=== PATIENT | female | born 1945 | race Caucasian/White ===

== ENCOUNTER 2017-02-21 11:30 | Inpatient (IN) ==
[2017-02-21] MEDS ORDERED: NS 1,000 ML IV ONE (11:59)
[2017-02-21] MEDS ORDERED: HUMULIN R IV ONE (11:59)
[2017-02-21 12:22] LABS: MANUAL DIFF NEEDED? NO
[2017-02-21] MEDS ORDERED: TORADOL IM ONE (12:32)
[2017-02-21] MEDS ORDERED: ZOFRAN IV ONE ×2 (12:32→12:41)
[2017-02-21] MEDS ORDERED: TORADOL ONE (12:35)
[2017-02-21] MEDS ORDERED: TORADOL IV ONE (12:41)
[2017-02-21 12:46] LABS: BASO% 0.2 % (0.0-0.8); EOS# 0.01 X1000 (0.0-0.7); EOS% 0.1 % (0.0-10.0); HEMATOCRIT 30.5 % (37.0-47.0); HEMOGLOBIN 10.3 g/dL (12.0-16.0); IMM GRAN# 0.16 X1000 (0.0-0.04); IMM GRAN% 0.9 % (0.0-0.5); LYMPH# 0.59 X1000 (1.2-3.4); LYMPH% 3.4 % (20.5-51.1); MCH 30.7 PG (27-31); MCHC 33.8 g/dL (33-37); MONO# 1.04 X1000 (0.11-0.59); MONO% 5.9 % (1.7-9.3); MPV 9.4 FL (7.4-10.4); NEUT% 89.5 % (42.2-75.2); PLT 274 X1000 (130-400); RBC 3.35 XMIL (4.2-5.4)
[2017-02-21 13:35] LABS: ALBUMIN 3.2 g/dL (3.5-5.0); CALCIUM 10.3 mg/dL (8.8-10.2); POTASSIUM 4.8 mmol/L (3.5-5.1); TOTAL BILIRUBIN 0.44 mg/dL (0.20-1.00); TOTAL PROTEIN 7.4 g/dL (6.3-8.3)
[2017-02-21] MEDS: HUMULIN R 100 UNIT in NS 99 ML IV ONE ×3 (13:52→17:00)
[2017-02-21 14:10] LABS: ALLEN TEST YES; BLOOD TYPE ARTERIAL; DRAW SITE R RADIAL; METHB 1.4 % (0.0-1.5); O2(CT) 12.4 mL/dL (15.0-23.0); PCO2(98.6) 25 mmHg (35-45); PO2(98.6) 79 mmHg (60-100); SAMPLE BLOOD; SAO2 97.1 % (95.0-100.0); THB 9.3 g/dL (11.5-17.4); pH(98.6) 7.36 (7.35-7.45)
[2017-02-21 14:11] LABS: MODALITY CANNULA
--- NOTE | 2017-02-21 14:13 | PROVIDER DOCUMENTATION ---
This chart was entered by Rian Sullivan Scribe, acting as scribe for Kingston Beyer MD. HPI-Abdominal Pain/GI Problem - General Chief Complaint: Nausea/Vomiting Stated Complaint: left flank pain/nausea Time Seen by Provider: 02/21/17 11:58 Source: patient Allergies/Adverse Reactions: Patient Allergies Allergy/AdvReac Type Severity Reaction Status Date / Time Penicillins Allergy Intermediate HIVES Verified 02/21/17 12:23 shellfish derived Allergy SWELLING Verified 02/21/17 12:23 Home Medications: Home Medication List Medication Instructions Recorded Confirmed Last Taken Type ATORVAstatin [Lipitor] 40 mg PO HS 03/23/13 02/21/17 05/31/16 History Furosemide [Lasix] 20 mg PO BID 03/23/13 02/21/17 06/01/16 History Omeprazole [Prilosec] 40 mg PO QAM 03/23/13 02/21/17 06/01/16 History Allopurinol 200 mg PO DAILY 01/01/16 02/21/17 06/01/16 History Fenofibrate 160 mg PO DAILY 01/01/16 02/21/17 06/01/16 History Insulin Aspart [Novolog Flexpen] 0 unit SQ DIRECTED 01/01/16 02/21/17 History Levothyroxine Sodium [Synthroid] 150 microgm PO DAILY 01/01/16 02/21/17 History Niacin [Niaspan] 1,000 mg PO QHS 01/01/16 02/21/17 05/31/16 History Metoprolol Succinate [Toprol Xl] 50 mg PO QAM 06/01/16 02/21/17 06/01/16 History Amlodipine [Norvasc] 10 mg PO DAILY #60 tablet 06/05/16 02/21/17 Unknown Rx Ergocalciferol (Vitamin D2) 50,000 unit PO Q7D #12 capsule 06/05/16 02/21/17 Unknown Rx [Vitamin D] Folic Acid 1 mg PO DAILY #60 tablet 06/05/16 02/21/17 Unknown Rx Hydralazine [Apresoline] 75 mg PO TID #120 tablet 06/05/16 02/21/17 Unknown Rx Insulin Glargine [Lantus] 15 unit SUBQ QHS #0 06/05/16 02/21/17 05/31/16 Rx Isosorbide Mononitrate E.r. [Imdur] 30 mg PO DAILY #60 tablet 06/05/16 02/21/17 Unknown Rx Magnesium Oxide [Mag-Ox] 400 mg PO DAILY #120 tablet 06/05/16 02/21/17 Unknown Rx LISINOpril [Prinivil] 20 mg PO DAILY 02/21/17 02/21/17 Unknown History Potassium Chloride E.r. [Klor-Con] 20 meq PO DAILY 02/21/17 02/21/17 Unknown History Pregabalin [Lyrica] 75 mg PO BID 02/21/17 02/21/17 Unknown History - History of Present Illness-ABD Nature of Presenting Problems: PT C/O LUQ PAIN AND N/V/D X 3DAYS AND SOB. Abdominal Pain Onset Location: reports: LUQ Pain Radiation: reports: no radiation Quality of Pain: reports: aching Severity in ED: reports: mild Onset/Duration: reports: 3 days ago Timing: reports: still present Activities at Onset: reports: none Exposure to sick contacts?: No Modifying Factors: improves with: palpation Associated Symptoms: reports: diarrhea, nausea, shortness of breath, vomiting. denies: chest pain, fever/chills, weakness Last BM: unsure Dark Stools Present?: reports: none noticed Rectal Bleeding: reports: none Rectal Pain: reports: none Emesis Description: reports: none Bruising or Bleeding Gums?: No Similar Symptoms Previously?: No Recently seen or treated by another doctor?: No Review of Systems - Adult - REVIEW OF SYSTEMS - ADULT Constitutional: denies: chills, fever, night sweats Eyes: denies: dry eyes, blurred vision, double vision Cardiovascular: denies: chest pain, heart murmur, palpitations Respiratory: reports: shortness of breath. denies: cough, wheezing Gastrointestinal: reports: abdominal pain, diarrhea, nausea, poor appetite, vomiting Genitourinary: denies: dysuria, flank pain, hematuria Musculoskeletal: denies: back pain, muscle aches, neck pain Integumentary: denies: hives, itching, rash Neurological: denies: ataxia, seizure, slurred speech All Other Systems: Reviewed and Negative Past History - Adult - PAST MEDICAL HISTORY-ADULT Review of Records: reports: Nursing Assessment Review, Medications Reviewed Cardiovascular: reports: HTN, hyperlipidemia Gastrointestinal: reports: GERD Endocrine/Immune: reports: Diabetes, thyroid disorder - PRIOR SURGERIES/PROCEDURES Surgical/Procedure History: reports: hysterectomy, - IMMUNIZATION STATUS Childhood Immunizations: See Nurse Assessment Flu Vaccine: See Nurse Assessment - FAMILY HISTORY Family History: reviewed, not pertinent - SOCIAL HISTORY Smoking: denies Substance Use: none/never Alcohol Use Frequency: never Living Situation: alone Physical Exam-General - PHYSICAL EXAM-ADULT Initial Vital Signs Reviewed: Yes - CONSTITUTIONAL General Appearance: appears well, alert, no apparent distress - HEAD, EARS, NOSE, MOUTH & THROAT HENMT: normocephalic/atraumatic, moist mucous membranes, normal ENT inspection, TMs normal, pharynx normal - NECK Neck: non-tender, full range of motion, supple, normal inspection - RESPIRATORY Respiratory: chest non-tender, lungs clear, normal breath sounds, no pleuratic chest pain, no respiratory distress, no accessory muscle use - CARDIOVASCULAR Cardiovascular: normal peripheral pulses, regular rate, rhythm, no edema, no gallop, no JVD, no murmur - GASTROINTESTINAL (ABDOMEN) Abdominal Exam: normal bowel sounds, soft, no organomegaly, no pulsatile mass, tenderness (LUQ) - LYMPHATIC Lymphatic: no adenopathy - MUSCULOSKELETAL Back Exam: normal inspection, no CVA tenderness, no vertebral tenderness Extremity: normal range of motion, non-tender, normal gait, normal inspection, no pedal edema, no calf tenderness, normal capillary refill - SKIN Integumentary: normal color, normal turgor, warm/dry - PSYCHIATRIC Psych/Mental Status: normal mood/affect, normal thought content, normal thought process, oriented x 3 Progress - PLAN OF CARE/RESULTS Progress/Plan/Lab Results: Vital Signs - 8 hr 02/21/17 11:38 Temperature 98.3 F Pulse Rate 124 H Respiratory Rate 24 Blood Pressure 119/67 O2 Sat by Pulse Oximetry 98 Orders Category Date Time Status FSBS/Accucheck Result ORDERED Care 02/21/17 12:00 Active ACETONE SERUM [CHEM] Stat Lab 02/21/17 12:12 Received CBC WITH ELECTRONIC DIFF [HEME] Stat Lab 02/21/17 12:12 Results CMP [COMPREHENSIVE METABOLIC PANEL] [CHEM] Stat Lab 02/21/17 12:12 Received UA NIMS W/REFLEX CULT [URINALYSIS] Stat Lab 02/21/17 12:00 Uncollected 0.9% Sodium Chloride Inj [Ns] 1,000 ml Med 02/21/17 11:59 Active IV 999 mls/hr Insulin Human Regular [Humulin R] Med 02/21/17 11:59 Discontinued 10 unit IV NOW ONE Result Diagrams: 02/21/17 12:12 02/21/17 12:12 - CONSULTS/PCP/HOSPITALIST Notification #1 *Consult/PCP/Hospitalist*: Dr Flores Time Discussed: 14:10 Reason/Comments: discussed keto-acidosis Departure - Departure Time of Disposition Decision: 14:12 DIAGNOSIS: Diabetic acetonemia Disposition: ADMITTED INPATIENT 09 Certified Medical Emergency: Emergent Condition: Serious Referrals and Follow-Ups: Shannon Velásquez MD [Primary Care Provider] - - Critical Care Note This patient required my direct & personal management of CC.: Yes Total Time (mins): 30 Critical Care Statement: This patient required my direct personal management to treat or rule out processes, the absence of which, could potentiallly result in sudden, clinically significant life or limb threatening deterioration. This chart was documented by the indicated scribe, (Rian Sullivan Scribe) and accurately reflects the services I performed and decisions made by me, Kingston Beyer MD, as attested by the provider's signature.
[2017-02-21] MEDS ORDERED: NS 1,000 ML ONE (15:27)
--- NOTE | 2017-02-21 15:35 | Diag Imaging Result Document ---
PROCEDURE NAME: FLAT/UPRIGHT ABD/1 VIEW CHEST - 02/21/2017 FLAT AND UPRIGHT AND CHEST, 3 VIEWS: FINDINGS: There is a dense infiltrate in the left base. No cardiomegaly. The right lung is clear. No free air beneath the diaphragm. No bowel obstruction. No organomegaly. There is at least moderate atherosclerosis. Moderate degenerative spine changes in the lower lumbar spine. IMPRESSION: Left basilar pneumonia.
[2017-02-21] MEDS: NS 1,000 ML, NS 1,000 ML IV ONE ×4 (15:38→16:56)
[2017-02-21 16:12] LABS: URINE CULTURE NEEDED? NO; URINE MICRO REVIEW NEEDED? NO; URINE SOURCE CATH
[2017-02-21 16:17] LABS: BILIRUBIN URINE NEGATIVE (NEGATIVE); BLOOD URINE TRACE (NEGATIVE); COLOR YELLOW; GLUCOSE URINE >1000 mg/dL (NEGATIVE); LEUKOCYTES URINE NEGATIVE (NEGATIVE); NITRITE URINE NEGATIVE (NEGATIVE); PROTEIN URINE 600 mg/dL (NEGATIVE); SP GRAVITY URINE 1.022; TURBIDITY URINE HAZY (CLEAR); UR EPITHELIAL CELLS <10 /HPF (<10); URINE BACTERIA NEGATIVE /HPF; URINE RBC <10 /HPF (<10); URINE WBC <10 /HPF (<10); UROBILINOGEN URINE NORMAL (NORMAL)
[2017-02-21] MEDS: ROCEPHIN 1 GM/NS 1 GM/50 ML IVPB IV SCH (16:45)
--- NOTE | 2017-02-21 17:29 | HISTORY AND PHYSICAL ---
PRIMARY CARE PHYSICIAN: Dr. Velásquez CHIEF COMPLAINT: Abdominal pain, nausea, vomiting, and altered mental status. HISTORY OF PRESENT ILLNESS: Ms. Blackburn is a 71-year-old female with a history of uncontrolled diabetes, CKD 3, hypothyroidism, poor medical compliance and others , who presents to the ER with 3 days of nausea, vomiting and left upper quadrant pain. Her daughter at the bedside also reports that she is becoming more confused over the past few days. Ms. Blackburn has a history of pancreatitis and states that the upper abdominal pain is very similar to the sensation that she had with her previous episodes of pancreatitis. She describes the pain as left upper quadrant in location and sharp in nature and nonradiating. She has had multiple episodes of nausea, vomiting and diarrhea. She denies any hematemesis or hematochezia. She denies any fever chills. She denies any cough, congestion or shortness of breath. The patient is slightly encephalopathic and this is confirmed by her daughter. Apparently, Ms. Blackburn is a very brittle diabetic and her blood pressure is very difficult to control, she is followed by Endocrinology in [place]. She states that when her blood sugar gets high she declines confused. She came to the ER for evaluation. Today in the ER she had labs done that were consistent with diabetic ketoacidosis. She also has a white count of 17.49, her blood sugar is 829. She does have a creatinine of 3 today and her historical baseline is around 1.5. She reports that she is followed by Dr. Galindo. After we saw the patient, we deemed it necessary to continue to work her up for etiologies of diabetic ketoacidosis, we ordered blood cultures and lactic acid. Given her SIRS criteria, we also ordered a chest x-ray, EKG, and cardiac enzymes. After reviewing her chest x-ray, it is consistent with left lower lobe pneumonia for which we immediately started azithromycin and Rocephin. She has been started on DKA protocol and she is now going to be admitted to the CICU for further treatment and evaluation. PAST MEDICAL HISTORY: 1. Brittle diabetes mellitus. 2. Hypertension. 3. Hypothyroidism. 4. Anemia. 5. Hyperlipidemia. 6. Peripheral artery disease. 7. Chronic kidney disease 3. SURGICAL HISTORY: She has had 3 C sections, she has had a hysterectomy, she has had cataract removal and retinal detachment repair. SOCIAL HISTORY: Patient denies tobacco, alcohol or drug use. She is and lives alone. She has a daughter who is at the bedside who is very helpful. REVIEW OF SYSTEMS: A 14 point review of systems obtained and found to be negative with the exception of the HPI. ALLERGIES: Penicillin and shellfish. HOME MEDICATIONS: Allopurinol 200 mg daily, Norvasc 10 mg daily, Lipitor 40 mg at bedtime, vitamin D 250,000 units p.o. daily. Fenofibrate 160 mg daily. Folic acid 1 mg daily. Lasix 20 mg b.i.d., Apresoline 75 mg t.i.d. NovoLog sliding scale, Lantus 15 units subcu daily. Isosorbide mononitrate ER 30 mg daily. Levothyroxine 150 mcg p.o. daily. Prinivil 20 mg daily. Mag-Ox 400 mg daily, Metoprolol-XL 50 mg a.m., Niaspan 1000 mg at bedtime, Prilosec 40 mg p.o. a.m. Klor-Con 20 mEq p.o. daily. Lyrica 75 mg b.i.d. PHYSICAL EXAMINATION: VITAL SIGNS: Blood pressure is 120/69, heart rate is 102, respiratory rate is 17, O2 saturations 95% on room air. GENERAL: This is an obese female, lying in a hospital bed in no acute distress. NEUROLOGIC: The patient is encephalopathic but she follows commands without focal deficits. HEENT: Head is atraumatic and normocephalic. Her pupils are equal, round, reactive to light. Oral mucosa is dry. Trachea is midline. There is no JVD. CHEST: Diminished over the left lung base. Otherwise clear to auscultation bilaterally. CARDIOVASCULAR: Regular rate and rhythm. S1-S2 is noted. No murmurs, gallops , clicks, rubs. GI: Left upper quadrant tenderness to palpation. Otherwise belly is soft. Nondistended. Bowel sounds are positive. EXTREMITIES: Without edema, clubbing or cyanosis. Pulses are palpable bilaterally. DIAGNOSTIC DATA: WBC 17.49, hemoglobin 10.3, hematocrit 30.5, platelet count 274,000. ABG done at 2:00 shows a pH is 7.36, CO2 25, O2 79, bicarbonate 17, sodium 122, corrected for glucose is 134, calcium 10.3, bilirubin 0.44, BUN 45, creatinine 3. LFTs within normal limits. CK 161, troponin 0.28. Lipase is 34, lactate 1.6. UA shows greater than 1000 glucose, 600 protein, acetone level is small. ASSESSMENT AND PLAN: 1. Diabetic ketoacidosis: Likely secondary to a combination of medical noncompliance and her underlying left lower lobe pneumonia. We will treat the underlying pneumonia and start her on DKA protocol. 2. Sepsis: Patient meets criteria with tachycardia, leukocytosis and source of left lower lobe pneumonia. Blood cultures have been obtained and antibiotics have been initiated. 3. Community-acquired pneumonia: Blood cultures have been obtained. We will order around the clock nebulizers and oxygen as needed. 4. Acute on chronic renal failure: Creatinine 3, baseline is around 1.6. We will monitor closely and consult Dr. Galindo if it gets any worse. We 2will monitor her intake and output, creatinine and BUN daily. Given her history of chronic kidney disease, we will continue her CARLITOS inhibitor. 5. Metabolic encephalopathy: The patient's mental status changes are likely metabolic secondary to hyperglycemia and pneumonia however we will check a head CT to make sure there are no other acute pathologies. 6. Abdominal pain, nausea, vomiting: We are going to check an abdomen and pelvis CT, check a lipase and amylase and continue IV fluids and add a clear liquid if she can tolerate it. We will write her some IV Zofran. 7. Hypothyroidism: We are going to check thyroid function and continue her Synthroid. Making adjustments as necessary. 8. Normocytic anemia: Iron studies have been ordered. We will continue her home medications and trend her CBCs. 9. Deep vein thrombosis prophylaxis will be added with heparin once her head CT is back as negative. Further recommendations to follow. Dictated by WIL Ruelas for Andres Csatellanos MD cc: WIL Ruelas MD [facility] [place] [facility]
--- NOTE | 2017-02-21 17:40 | Diag Imaging Result Document ---
PROCEDURE NAME: ABDOMEN/PELVIS W/O CONTRAST - 02/21/2017 CT ABDOMEN PELVIS WITHOUT CONTRAST: FINDINGS: No contrast administered per request of the referring provider. A dose reduction protocol was used. Compared to 06/22/2015. There is a tiny left pleural effusion. There is some dependent atelectasis at the bilateral lung bases. There is calcified mitral valve annulus noted. There is hepatosplenomegaly similar to the previous exam. There are no focal lesions identified in the liver or spleen. The adrenal glands and pancreas are unremarkable. There are no calcified gallstones or pericholecystic inflammatory changes identified. There is no evidence of renal stone or hydronephrosis. There is a 1.9 cm fluid density lesion which arises at the anterolateral mid right kidney and is stable, compatible with cyst. There is a 1.4 cm fluid density lesion which arises at the posterolateral mid right kidney and is increased in size from 1.1 cm on the previous exam, but also may represent a cyst. There is mild dilatation of the infrarenal abdominal aorta up to 3.4 cm which is stable. There are atherosclerotic calcifications noted. There are small to borderline retroperitoneal lymph nodes which appear grossly stable. There is questionable diffuse thickening of the gastric gilliland versus artifact of nondistention of the gastric lumen, which appears stable. There is no evidence of bowel obstruction. The appendix is not discretely identified, but there is no pericecal inflammation identified. There is diverticulosis which is most prominent at the sigmoid colon. There is no evidence of diverticulitis. There is no free air, free fluid, or abscess identified. Images of the pelvis otherwise show postsurgical changes of hysterectomy. There is a Michel catheter in the urinary bladder. IMPRESSION: 1. Tiny left pleural effusion. Calcified mitral valve annulus noted. 2. Stable hepatosplenomegaly. No focal liver or splenic lesions seen. 3. Stable mild dilatation of infrarenal abdominal aorta up to 3.4 cm. Stable borderline retroperitoneal adenopathy. 4. Questionable chronic gastritis. 5. No bowel obstruction. 6. Uncomplicated colonic diverticulosis. No abscess. No free air.
[2017-02-21 18:46] LABS: IRON SATURATION 8 %; TIBC 203 ug/dL; TOTAL IRON 17 ug/dL (49-151); UNBOUND IRON 186 ug/dL (112-346)
[2017-02-21 18:51] LABS: HEMOGLOBIN A1C 14.8 % (4.8-6.0)
[2017-02-21 18:51] LABS: UR AMPHETAMINES QUAL NONE DETECTED (NONE DETECT); UR BARBITUATES QUAL NONE DETECTED (NONE DETECT); UR BENZODIAZEPIN QUAL NONE DETECTED (NONE DETECT); UR CANNABINOIDS QUAL NONE DETECTED (NONE DETECT); UR COCAINE QUAL NONE DETECTED (NONE DETECT); UR METHADONE QUAL NONE DETECTED (NONE DETECT); UR OPIATES QUAL NONE DETECTED (NONE DETECT); UR OXYCODONE QUAL NONE DETECTED (NONE DETECT); UR PCP QUAL NONE DETECTED (NONE DETECT)
[2017-02-21 18:57] LABS: FREE T4 1.01 ng/dL (0.93-1.70)
[2017-02-21] MEDS: APRESOLINE PO SCH (19:09)
[2017-02-21] MEDS ORDERED: AMBIEN PO PRN (20:07)
[2017-02-21] MEDS ORDERED: HUMULIN R 100 UNIT in NS 100 ML IV SCH (20:15)
[2017-02-21 20:45] LABS: CALCIUM 8.9 mg/dL (8.8-10.2); MAGNESIUM 1.4 mg/dL (1.5-2.7); POTASSIUM 4.3 mmol/L (3.5-5.1)
[2017-02-21] MEDS: ZITHROMAX 500 MG/NS 500 MG/250 ML IVPB IV SCH (20:48)
[2017-02-21] MEDS: LANTUS SUBQ SCH (20:49)
[2017-02-21] MEDS: NIASPAN PO SCH (20:49)
[2017-02-21] MEDS: PROTONIX IV SCH (20:50)
[2017-02-21] MEDS: SODIUM CHLORIDE 0.9% INJ SCH (20:50)
[2017-02-21] MEDS: TORADOL IV PRN (20:50)
[2017-02-21] MEDS: LIPITOR PO SCH (20:50)
[2017-02-21] MEDS ORDERED: INSULIN PEN NEEDLES ONE (21:11)
[2017-02-21] MEDS: AMBIEN PO PRN (21:13)
[2017-02-21] MEDS: VITAMIN D PO SCH (21:14)
[2017-02-21] MEDS ORDERED: POTASSIUM CHLORIDE 20 MEQ/SWI 20 MEQ/100 ML IVPB IV ONE (22:32)
[2017-02-21] MEDS ORDERED: MAGNESIUM SULFATE 2 GM/S.W.I. 2 GM/50 ML IVPB IV ONE (22:32)
[2017-02-21] MEDS: 1/2 NS 1,000 ML IV SCH (22:35)
[2017-02-21] MEDS: D5 1/2 NS 1,000 ML IV SCH (22:35)
[2017-02-22 04:05] LABS: CALCIUM 9.4 mg/dL (8.8-10.2); MAGNESIUM 2.1 mg/dL (1.5-2.7)
[2017-02-22] MEDS ORDERED: POTASSIUM CHLORIDE 20 MEQ/SWI 20 MEQ/100 ML IVPB IV ONE ×2 (04:48→23:32)
[2017-02-22] MEDS: D5 1/2 NS 1,000 ML IV SCH ×3 (05:31→20:45)
[2017-02-22 05:41] LABS: HEMATOCRIT 26.1 % (37.0-47.0); HEMOGLOBIN 8.6 g/dL (12.0-16.0); MCH 30.6 PG (27-31); MCV 92.9 FL (81-99); MPV 9.2 FL (7.4-10.4); RBC 2.81 XMIL (4.2-5.4)
[2017-02-22 05:59] LABS: CALCIUM 9.1 mg/dL (8.8-10.2); MAGNESIUM 2.1 mg/dL (1.5-2.7); POTASSIUM 3.9 mmol/L (3.5-5.1)
[2017-02-22] MEDS: 1/2 NS 1,000 ML IV SCH ×3 (06:46→22:18)
[2017-02-22] MEDS ORDERED: PRILOSEC PO SCH (07:00)
[2017-02-22] MEDS ORDERED: SYNTHROID PO SCH (07:00)
--- NOTE | 2017-02-22 07:14 | Diag Imaging Result Document ---
PROCEDURE NAME: HEAD W/O CONTRAST - 02/21/2017 CT HEAD WITHOUT CONTRAST: FINDINGS: A dose reduction protocol was used. Compared with 06/01/2016. There are generalized mild atrophic changes similar to the previous exam. There are minimal chronic microvascular ischemic changes. There is no indication of recent infarct, although acute infarcts may not be immediately visible. There is no evidence of hemorrhage, mass effect, midline shift or hydrocephalus. Visualized portions of paranasal sinuses and mastoid air cells appear clear. IMPRESSION: Mild atrophic changes similar to prior. No visible acute process. No hemorrhage or mass effect.
--- NOTE | 2017-02-22 08:30 | Diag Imaging Result Document ---
PROCEDURE NAME: CHEST-PORTABLE - 02/22/2017 SINGLE FRONTAL RADIOGRAPH OF THE CHEST: COMPARISON: 02/21/2017. FINDINGS: The dense consolidation at the left lung base is stable. No new consolidations are appreciated. Cardiac silhouette is stable. IMPRESSION: Stable chest.
[2017-02-22] MEDS: APRESOLINE PO SCH ×3 (08:51→20:33)
[2017-02-22] MEDS: TORADOL IV PRN ×3 (08:51→21:24)
[2017-02-22] MEDS: PRINIVIL PO SCH (08:51)
[2017-02-22] MEDS: MAG-OX PO SCH (08:52)
[2017-02-22] MEDS: FOLIC ACID PO SCH (08:52)
[2017-02-22] MEDS: NORVASC PO SCH (08:52)
[2017-02-22] MEDS: IMDUR PO SCH (08:52)
[2017-02-22] MEDS: LOFIBRA PO SCH (08:53)
[2017-02-22] MEDS: TOPROL XL PO SCH (08:57)
[2017-02-22 09:39] LABS: CALCIUM 9.1 mg/dL (8.8-10.2); MAGNESIUM 1.9 mg/dL (1.5-2.7); POTASSIUM 4.2 mmol/L (3.5-5.1)
--- NOTE | 2017-02-22 09:39 | EKG Report ---
Test Performed on : 02/22/2017 08:45:55 AM Test Reason : Chest pain Blood Pressure : / mmHG Vent. Rate : 109 BPM Atrial Rate : 109 BPM P-R Int : 164 ms QRS Dur : 140 ms QT Int : 356 ms P-R-T Axes : 047 063 038 degrees QTc Int : 479 ms Sinus tachycardia. with premature ventricular complexes. or fusion complexes Right bundle branch block Abnormal ECG When compared with ECG of 01-JUN-2016 17:22, fusion complexes are now present premature ventricular complexes. are now present Vent. rate has increased BY 41 BPM Nonspecific T wave abnormality has replaced inverted T waves in Inferior leads Confirmed by Mayra JUNG, Yong Dalton ([id number]) on 02/23/2017 12:06:56 PM
--- NOTE | 2017-02-22 11:02 | Diag Imaging Result Document ---
PROCEDURE NAME: CHEST-2 VIEWS - 02/22/2017 PA AND LATERAL RADIOGRAPH OF THE CHEST: COMPARISON: 02/22/2017. FINDINGS: There is a persistent dense consolidation in the left lower lung zone. It is unchanged. No new consolidations are appreciated. Cardiac silhouette is stable. IMPRESSION: Stable chest.
--- NOTE | 2017-02-22 14:08 | PROGRESS NOTE ---
DATE: 02/22/2017 SUBJECTIVE: This patient states that she is feeling a little bit better, she was able to sleep during the night, but today during the day she has been feeling weak and with cough and chest pain. OBJECTIVE: Vital Signs: Temperature 97.6 degrees, pulse 88, respiratory rate 18, blood pressure 110/60, O2 saturation 98 on 2 L of nasal cannula. HEENT: Head normocephalic. No trauma. PERRLA. Neck: Supple. No JVD. No masses. Central trachea. Chest: Decreased breath sounds at the level of the right lower lung, with rales. Cardiovascular: RRR. No murmurs. No gallops. No rubs. Abdomen: Soft, nontender, nondistended. No hepatosplenomegaly, mild tenderness to palpation at the level of the epigastric area and periumbilical area. Extremities: No edema. No clubbing. No cyanosis. Neurological: The patient is alert and oriented x3. No focal neurological deficits. LABORATORY: WBC 11.6, hemoglobin 8.6, hematocrit 26.1, platelets 216,000. Sodium 128, potassium 4.2, chloride 94, bicarbonate 16, BUN 43, creatinine 2.6, glucose 346, calcium 9.1, phosphorus 2.4, magnesium 1.9. ASSESSMENT AND PLAN: 1. Diabetic ketoacidosis secondary to a combination of medical noncompliance and left lower lobe pneumonia, this patient was admitted with sepsis, we will continue with the diabetic ketoacidosis protocol and antibiotics. 2. Sepsis. This patient met criteria with tachycardia, leukocytosis and left lower lobe pneumonia. Blood cultures so far have been negative. We will continue to monitor. 3. Community-acquired pneumonia. Continue with the same management, she is on antibiotics and breathing treatment. 4. Acute on chronic kidney failure, this is getting better. Continue with the same management. 5. Metabolic encephalopathy. Resolved. 6. Abdominal pain, nausea and vomiting. This is getting better, this patient stated that she had 1 episode of diarrhea in the morning. We will continue with the same management. 7. Hypothyroidism. Continue with the same management. 8. anemia. Aware. 9. Deep vein thrombosis prophylaxis. We will start this patient on heparin. CRITICAL CARE TIME: Thirty-five minutes. cc: MD CHEVY Cruz
[2017-02-22 14:48] LABS: CALCIUM 9.1 mg/dL (8.8-10.2); MAGNESIUM 1.8 mg/dL (1.5-2.7); POTASSIUM 4.1 mmol/L (3.5-5.1)
[2017-02-22] MEDS: ROCEPHIN 1 GM/NS 1 GM/50 ML IVPB IV SCH (15:37)
[2017-02-22 18:44] LABS: CALCIUM 8.9 mg/dL (8.8-10.2); MAGNESIUM 1.8 mg/dL (1.5-2.7); POTASSIUM 4.2 mmol/L (3.5-5.1)
[2017-02-22] MEDS: PROTONIX IV SCH (20:32)
[2017-02-22] MEDS: SODIUM CHLORIDE 0.9% INJ SCH (20:32)
[2017-02-22] MEDS: HEPARIN SUBQ SCH (20:32)
[2017-02-22] MEDS: ZITHROMAX 500 MG/NS 500 MG/250 ML IVPB IV SCH (20:32)
[2017-02-22] MEDS: NIASPAN PO SCH (20:32)
[2017-02-22] MEDS: IMODIUM PO PRN ×2 (20:33→23:24)
[2017-02-22] MEDS: AMBIEN PO PRN (20:33)
[2017-02-22] MEDS: LIPITOR PO SCH (20:33)
[2017-02-22] MEDS: LANTUS SUBQ SCH (20:44)
[2017-02-22 23:09] LABS: CALCIUM 8.8 mg/dL (8.8-10.2); MAGNESIUM 1.7 mg/dL (1.5-2.7); POTASSIUM 4.4 mmol/L (3.5-5.1)
[2017-02-22] MEDS ORDERED: MAGNESIUM SULFATE 2 GM/S.W.I. 2 GM/50 ML IVPB IV ONE (23:32)
[2017-02-23 01:33] LABS: CALCIUM 8.9 mg/dL (8.8-10.2); MAGNESIUM 2.6 mg/dL (1.5-2.7); POTASSIUM 3.9 mmol/L (3.5-5.1)
[2017-02-23] MEDS ORDERED: POTASSIUM CHLORIDE 20 MEQ/SWI 20 MEQ/100 ML IVPB IV ONE ×2 (02:56→06:32)
[2017-02-23] MEDS: TORADOL IV PRN ×3 (03:03→20:49)
[2017-02-23] MEDS: D5 1/2 NS 1,000 ML IV SCH ×2 (04:31→06:28)
[2017-02-23] MEDS: ZOFRAN IV PRN (05:18)
[2017-02-23 05:29] LABS: HEMATOCRIT 24.7 % (37.0-47.0); HEMOGLOBIN 8.1 g/dL (12.0-16.0); MCH 30.6 PG (27-31); MCHC 32.8 g/dL (33-37); MCV 93.2 FL (81-99); MPV 9.1 FL (7.4-10.4); RBC 2.65 XMIL (4.2-5.4)
[2017-02-23] MEDS: 1/2 NS 1,000 ML IV SCH (06:27)
[2017-02-23 06:30] LABS: CALCIUM 8.8 mg/dL (8.8-10.2); MAGNESIUM 2.4 mg/dL (1.5-2.7); POTASSIUM 4.7 mmol/L (3.5-5.1)
--- NOTE | 2017-02-23 08:18 | Diag Imaging Result Document ---
PROCEDURE NAME: CHEST-PORTABLE - 02/23/2017 SINGLE FRONTAL RADIOGRAPH OF THE CHEST: COMPARISON: 02/22/2017. FINDINGS: The consolidation at the left lung base persists and may be slightly more dense than the previous study. This may be due to differences in the current AP technique in the previous PA and lateral technique. No new consolidations are identified. Cardiac silhouette is stable. IMPRESSION: Slight increase in density in the consolidation at the left lung base that is probably technical.
[2017-02-23] MEDS: NS 1,000 ML IV SCH ×2 (09:21→20:50)
[2017-02-23] MEDS: HEPARIN SUBQ SCH ×2 (09:23→20:49)
[2017-02-23] MEDS: MAG-OX PO SCH (09:23)
[2017-02-23] MEDS: PRINIVIL PO SCH (09:23)
[2017-02-23] MEDS: NORVASC PO SCH (09:23)
[2017-02-23] MEDS: TOPROL XL PO SCH (09:23)
[2017-02-23] MEDS: FOLIC ACID PO SCH (09:24)
[2017-02-23] MEDS: LOFIBRA PO SCH (09:24)
[2017-02-23] MEDS: LANTUS SUBQ SCH (09:24)
[2017-02-23] MEDS: IMDUR PO SCH (09:29)
[2017-02-23] MEDS: APRESOLINE PO SCH ×3 (09:36→20:48)
[2017-02-23] MEDS ORDERED: FLAGYL 500 MG/NS 500 MG/100 ML IVPB IV SCH (10:00)
[2017-02-23 10:06] LABS: MAGNESIUM 2.3 mg/dL (1.5-2.7); POTASSIUM 4.9 mmol/L (3.5-5.1)
[2017-02-23] MEDS ORDERED: ROCEPHIN 2 GM/NS 2 GM/50 ML IVPB IV SCH (12:00)
[2017-02-23] MEDS: HUMULIN R SUBQ SCH ×3 (12:13→20:51)
--- NOTE | 2017-02-23 12:15 | PROGRESS NOTE ---
DATE: 02/23/2017 SUBJECTIVE: This patient states that she is feeling about the same. This patient also is having diarrhea. I asked for a C. diff report and it came back positive. I will add metronidazole to her medications. For her pneumonia I will continue with the same management. I will consult the Infectious Disease doctor to evaluate this patient. OBJECTIVE: Vital Signs: Temperature 98.2 degrees, pulse 80, respiratory rate 18, blood pressure 143/62, O2 saturation 97% on 2 L of nasal cannula. HEENT: Head normocephalic. No trauma. PERRLA. Neck: Supple. No JVD. No masses. Central trachea. Chest: Decreased breath sounds at the level of the right lower lung with rhonchi. Cardiovascular: RRR. No murmurs. No gallops. No rubs. Abdomen: Soft, mild tenderness to palpation at the level of the periumbilical area and epigastric area. Extremities: No edema. No clubbing. No cyanosis. Neurological: The patient is alert and oriented x3. No focal neurological deficits. LABORATORY: WBC 11.5, hemoglobin 8.1, hematocrit 24.7, platelets 201,000. Sodium 127, potassium 4.9, chloride 96, bicarbonate 12. BUN 38, creatinine 2.6, glucose 259. Magnesium 2.3, phosphorus 2.9, calcium 9. ASSESSMENT AND PLAN: 1. Diabetes ketoacidosis. We will continue with insulin regimen and pattern of blood sugar. We will continue with monitoring with BMP scheduled. 2. Sepsis likely secondary to left lower lobe pneumonia and also this patient now is having C. difficile colitis. 3. Community-acquired pneumonia. Continue with the same management. She is on antibiotics and breathing treatment. Infectious Disease Department has been consulted. 4. C, difficile colitis. She has been complaining of diarrhea and belly pain. I will start this patient with IV metronidazole because she has been having nausea. 5. Diarrhea, secondary to C. difficile colitis. Infectious Disease Department has been consulted. 6. Hypothyroidism. Continue with levothyroxine. 7. Anemia. Aware. 8. Deep vein thrombosis prophylaxis. Continue with heparin. CRITICAL CARE TIME: 35 minutes. cc: Andres Castellanos MD
--- NOTE | 2017-02-23 13:43 | CONSULTATION ---
DATE OF CONSULTATION: 02/23/2017 CONCLUSION: The patient has a gram-positive coccal bacteremia associated with pneumonia. I suspect the patient has a pneumococcal pneumonia with an associated bacteremia. The patient is having diarrhea. Her Clostridium difficile antigen is positive but her Clostridium difficile toxin is negative. Based on that one would question the diagnosis that she has Clostridium difficile diarrhea because her toxin is negative. I think that she does have Clostridium difficile diarrhea and at this time the amount of toxin produced is low enough that it cannot be picked up on the test. I suspect that in a few days if we repeat the Clostridium difficile toxin it will be positive. The patient may have an immunoglobulin deficiency. RECOMMENDATIONS: I agree with Dr. Castellanos treatment with Rocephin. I have increased the dose to 2 g IV daily. Since we know the patient has a bacterial infection most likely due to pneumococcus I do not think we need to continue azithromycin. Also I would suggest treating with p.o. vancomycin rather than IV Flagyl. I have also ordered immunoglobulin levels. DISCUSSION: The patient tells me that 3 days ago she started having a cough and being short of breath. She has not had fever. She has been anorectic. In the past day she has developed diarrhea. Hers studies thus far show on chest x-ray she has a left lower lobe infiltrate. Her CBC shows a white count that is down to 11,590, hemoglobin 8.1, and platelet count 201,000. Creatinine is 2.6. GFR is 18. The patient's drug screen was negative. Urinalysis was negative for white cells and bacteria. Blood is growing a gram-positive coccus. Clostridium difficile toxin is negative. Clostridium difficile antigen is positive. The chest x-ray shows a left lower lobe infiltrate. PAST MEDICAL HISTORY/REVIEW OF SYSTEMS: Eyes and ears: She denies difficulty hearing or seeing. Neck: No stiffness. Respiratory: See present illness. Cardiac: No chest pain or palpitations. GI: No nausea or vomiting. She is having diarrhea. Genitourinary: She is not having any dysuria or flank pain. Bones, joints, muscles,: No joint swelling or muscle aches. Endocrine: Patient has diabetes and hypothyroidism. Neurologic: No seizures and no motor or sensory loss. Integument: No rash. DIALYSIS RN HISTORY: She is a 3, para 3, AB 0. She delivered all of her children by C- section. She has had a hysterectomy. PREVIOUS HOSPITALIZATIONS AND OPERATIONS: The patient has had 3 C-sections and a hysterectomy. She has previously been admitted for pneumonia. She has had ocular surgery. MEDICAL DISEASES: Positive for diabetes mellitus, hypertension, hyperlipidemia, hypothyroidism, chronic kidney disease, peripheral vascular disease, gout, and gastroesophageal reflux disease. INFECTIOUS DISEASE HISTORY: Positive for pneumonia. Negative for UTI. FAMILY HISTORY: Positive for diabetes mellitus, hypertension, myocardial infarction, stroke, and cancer. SOCIAL HISTORY: [place] She is . She lives alone. She has a cat as a pet. ALLERGIES: She is allergic to penicillin, manifested by urticaria. However, she has been on Rocephin now and tolerating it well. HOME MEDICATIONS: Include the following. She is on Synthroid, Lyrica, potassium, lisinopril, Prilosec, Niaspan, metoprolol, magnesium, Isordil, insulin, hydralazine, Lasix, folic acid, fenofibrate, vitamin D, amlodipine, allopurinol, and Lipitor PHYSICAL EXAMINATION: Vital signs: Temperature is 98.2 degrees, pulse 80, respirations 18, blood pressure 143/62. Her weight is 196 pounds. General: This is an obese, elderly female. She is in no acute distress at this time. Head, eyes, ears, nose, and throat: She can hear my spoken words. She can see near objects. No lesions were noted in her mouth. Her dental hygiene was good. Neck: No meningismus. Thorax: No increased AP diameter of the chest. Lungs: There were left lower lobe rales. The right lung was clear. Cardiovascular: Heart rate was regular. Peripheral pulses were palpable. The patient had only a little bit of edema in both legs at this time. Abdomen: Soft and nontender. Neurologic: Patient is alert. She can move her extremities. There is no tremor. Her sensation is intact to touch. Her memory as regarding her medical history was intact. Integument: No rash noted. Thank you for the consult. cc: Saravanan Torres MD
[2017-02-23] MEDS: VANCOMYCIN ORAL SOLN PO SCH ×2 (14:12→20:56)
[2017-02-23 14:41] LABS: CALCIUM 9.2 mg/dL (8.8-10.2); MAGNESIUM 2.1 mg/dL (1.5-2.7); POTASSIUM 4.9 mmol/L (3.5-5.1)
[2017-02-23] MEDS: SYNTHROID PO SCH (17:05)
[2017-02-23 17:48] LABS: CALCIUM 8.8 mg/dL (8.8-10.2); POTASSIUM 4.6 mmol/L (3.5-5.1)
[2017-02-23] MEDS: NIASPAN PO SCH (20:48)
[2017-02-23] MEDS: SODIUM CHLORIDE 0.9% INJ SCH (20:49)
[2017-02-23] MEDS: LIPITOR PO SCH (20:49)
[2017-02-23] MEDS: PROTONIX IV SCH (20:49)
[2017-02-23] MEDS: AMBIEN PO PRN (22:29)
[2017-02-24] MEDS: HUMULIN R SUBQ SCH ×6 (00:58→20:24)
[2017-02-24] MEDS: VANCOMYCIN ORAL SOLN PO SCH ×4 (02:02→20:22)
[2017-02-24 05:14] LABS: BASO% 0.2 % (0.0-0.8); EOS# 0.16 X1000 (0.0-0.7); EOS% 1.3 % (0.0-10.0); HEMATOCRIT 26.9 % (37.0-47.0); HEMOGLOBIN 8.8 g/dL (12.0-16.0); IMM GRAN# 0.64 X1000 (0.0-0.04); IMM GRAN% 5.2 % (0.0-0.5); LYMPH# 0.83 X1000 (1.2-3.4); LYMPH% 6.7 % (20.5-51.1); MANUAL DIFF NEEDED? YES; MCH 30.1 PG (27-31); MCHC 32.7 g/dL (33-37); MCV 92.1 FL (81-99); MONO# 0.85 X1000 (0.11-0.59); MONO% 6.9 % (1.7-9.3); MPV 8.6 FL (7.4-10.4); NEUT% 79.7 % (42.2-75.2); PLT 247 X1000 (130-400); RBC 2.92 XMIL (4.2-5.4)
[2017-02-24 05:30] LABS: CALCIUM 9.2 mg/dL (8.8-10.2); POTASSIUM 4.7 mmol/L (3.5-5.1)
[2017-02-24] MEDS: SYNTHROID PO SCH (06:22)
[2017-02-24 06:25] LABS: BANDS 6 % (0-1); EOS 2 % (1-10); LYMPHS 6 % (21-51); MONO 2 % (1-9)
[2017-02-24 06:26] LABS: HYPOCHROM 2+
--- NOTE | 2017-02-24 07:46 | PROGRESS NOTE ---
DATE: 02/24/2017 PRESENT ILLNESS: The patient has an oxacillin sensitive Staph aureus bacteremia with pneumonia. The patient also has Clostridium difficile diarrhea. MEDICATIONS: The patient was on Rocephin. PHYSICAL EXAMINATION: Vital Signs: Temperature is 98.1 degrees, pulse 85, respirations 22, blood pressure 150/68. In general, the patient is obese. She is lethargic. Lungs clear to auscultation. Cardiovascular: Regular heart rate. Abdomen is soft and nontender. Neurologic: The patient is arousable but she is, for the most part, sleepy. She can move her extremities. There is no tremor. LABORATORY DATA AND X-RAY: CBC shows a white count of 12,380. Hemoglobin 8.8 and platelet count 247,000. Creatinine is 2.7. GFR is 17. Blood cultures are growing oxacillin sensitive Staph aureus. Immunoglobulin levels are pending. ASSESSMENT AND PLAN: 1. The patient has Staphylococcus aureus bacteremia most likely arising from a Staphylococcus aureus pneumonia. I have switched the patient from Rocephin to cefazolin. Also, I have ordered an echocardiogram to look for the presence of vegetations. 2. The patient has Clostridium difficile diarrhea. I plan to continue with p.o. vancomycin. The patient's comorbidities include diabetes mellitus, chronic kidney disease, peripheral vascular disease, gastroesophageal reflux disease. cc: Saravanan Torres MD MTDD
[2017-02-24] MEDS: MAG-OX PO SCH (08:10)
[2017-02-24] MEDS: APRESOLINE PO SCH ×3 (08:10→20:23)
[2017-02-24] MEDS: LOFIBRA PO SCH (08:13)
[2017-02-24] MEDS: TOPROL XL PO SCH (08:13)
[2017-02-24] MEDS: IMDUR PO SCH (08:13)
[2017-02-24] MEDS: FOLIC ACID PO SCH (08:13)
[2017-02-24] MEDS: HEPARIN SUBQ SCH ×2 (08:14→20:23)
[2017-02-24] MEDS: NORVASC PO SCH (08:14)
[2017-02-24] MEDS: PRINIVIL PO SCH (08:14)
[2017-02-24] MEDS: LANTUS SUBQ SCH ×2 (08:18→10:22)
[2017-02-24] MEDS: NS 1,000 ML IV SCH ×2 (08:18→18:12)
[2017-02-24] MEDS ORDERED: STERILE WATER INJ. ONE (10:02)
[2017-02-24] MEDS: KEFZOL 1 GM/D5W 1 GM/50 ML IVPB IV SCH ×2 (10:22→18:44)
[2017-02-24] MEDS: ZOFRAN IV PRN (12:30)
--- NOTE | 2017-02-24 13:56 | ECHO REPORT ---
ORDER DATE: 02/24/2017 ECHOCARDIOGRAPHIC MEASUREMENTS: 1. Interventricular septum 1.0. Left ventricular posterior wall 1.3. Diastolic diameter 4.7. Left atrium 4.6. Aorta 3.0. 2. Aortic valve leaflets mildly thickened. Trileaflet opening normally. Pulmonic valve not well visualized. 3. Tricuspid valve was normal. 4. Mitral valve leaflets are normal. There is moderate mitral annular calcification. 5. Technically suboptimal study. 6. Normal left ventricular cavity size. Estimated ejection fraction of 60%. 7. There is trace to mild tricuspid regurgitation. Peak velocity across the tricuspid valve was 2 m/sec. There is mild mitral regurgitation. 8. Peak velocity across the aortic valve was 2 m/sec. There is no aortic stenosis. There is no pericardial effusion. Would recommend transesophageal echocardiogram to rule out if clinically indicated thank you as this was the request for 2D echocardiogram. cc: MD Saravanan Alejandro MD
[2017-02-24] MEDS ORDERED: AYR NASAL SPRAY NAS PRN (14:04)
--- NOTE | 2017-02-24 14:36 | PROGRESS NOTE ---
DATE: 02/24/2017 SUBJECTIVE: This patient states that she is feeling about the same. She had just 1 watery bowel movement today. Infectious disease department is following this patient and they switched ceftriaxone to cefazolin. For the C. difficile colitis this patient is on vancomycin p.o. Family member is at the bedside. All of the questions were answered. OBJECTIVE: Vital Signs: Temperature 97.9 degrees, pulse 89, respiratory rate 15, blood pressure 132/64, oxygen saturation 93 on 2 L of nasal cannula. HEENT: Head normocephalic. No trauma. PERRLA. Neck: Supple. No JVD. No masses. Central trachea. Chest: Decreased breath sounds at the level of the right lower lung with rhonchi. Cardiovascular: RRR. No murmurs. Abdomen: Soft. Mild tenderness to palpation at the level of the periumbilical area and epigastric area. No rebound. Extremities: No edema. No clubbing. No cyanosis. Neurological: The patient is alert and she is oriented x3. She has no focal deficits, generalized weakness. LABORATORY: WBC 12.3, hemoglobin 8.8, hematocrit 26.9, platelet 247,000. Sodium 133, potassium 4.7, chloride 101, bicarbonate 15, BUN 33, creatinine 2.7, glucose 255. Hemoglobin A1c is 14.8. ASSESSMENT AND PLAN: 1. Diabetic ketoacidosis we will continue with the insulin regimen and pattern of blood sugar. We will continue monitoring the BMP as well. 2. Sepsis, likely secondary to the left lower lobe pneumonia. This patient has C. Difficile colitis as well. Infectious disease department is following this patient. 3. Bacteremia secondary to methicillin-sensitive Staphylococcus aureus. Continue with cefazolin as per ID. 4. Diarrhea secondary to Clostridium difficile colitis. This patient had just 1 episode of watery diarrhea today. We will continue to monitor. 5. Hypothyroidism. Continue with levothyroxine. 6. Community-acquired pneumonia. Continue with the same management. 7. Anemia. Aware. 8. Deep vein thrombosis prophylaxis. Continue with heparin. 9. Uncontrolled diabetes. Her hemoglobin A1c is 14.8; it is really uncontrolled. I will increase the dose of Lantus to 80 and I will monitor. CRITICAL CARE TIME: 35 minutes. cc: Andres Castellanos MD
[2017-02-24] MEDS ORDERED: SODIUM CHLORIDE 0.9% INJ PRN (15:21)
[2017-02-24] MEDS ORDERED: PHENERGAN IV PRN (15:21)
[2017-02-24] MEDS: TORADOL IV PRN ×2 (17:03→23:37)
[2017-02-24] MEDS: PROTONIX IV SCH (20:22)
[2017-02-24] MEDS: LIPITOR PO SCH (20:23)
[2017-02-24] MEDS: NIASPAN PO SCH (20:23)
[2017-02-24] MEDS: AMBIEN PO PRN (23:37)
[2017-02-25] MEDS: VANCOMYCIN ORAL SOLN PO SCH ×4 (02:20→20:44)
[2017-02-25 05:21] LABS: BASO% 0.6 % (0.0-0.8); EOS# 0.22 X1000 (0.0-0.7); EOS% 1.8 % (0.0-10.0); HEMATOCRIT 26.4 % (37.0-47.0); HEMOGLOBIN 8.6 g/dL (12.0-16.0); IMM GRAN% 8.9 % (0.0-0.5); LYMPH# 1.28 X1000 (1.2-3.4); LYMPH% 10.4 % (20.5-51.1); MANUAL DIFF NEEDED? YES; MCH 30.2 PG (27-31); MCHC 32.6 g/dL (33-37); MCV 92.6 FL (81-99); MONO# 0.85 X1000 (0.11-0.59); MONO% 6.9 % (1.7-9.3); MPV 8.6 FL (7.4-10.4); NEUT% 71.4 % (42.2-75.2); PLT 236 X1000 (130-400); RBC 2.85 XMIL (4.2-5.4)
[2017-02-25 05:31] LABS: BANDS 2 % (0-1); EOS 2 % (1-10); LYMPHS 10 % (21-51); MONO 6 % (1-9)
[2017-02-25 05:40] LABS: POTASSIUM 4.7 mmol/L (3.5-5.1)
[2017-02-25] MEDS: HUMULIN R SUBQ SCH ×4 (06:36→20:46)
[2017-02-25] MEDS: SYNTHROID PO SCH (06:36)
[2017-02-25] MEDS: KEFZOL 1 GM/D5W 1 GM/50 ML IVPB IV SCH ×2 (06:41→18:19)
[2017-02-25] MEDS ORDERED: SODIUM BICARBONATE 8.4% IV ONE (08:15)
[2017-02-25] MEDS: IMDUR PO SCH (09:25)
[2017-02-25] MEDS: APRESOLINE PO SCH ×3 (09:25→20:45)
[2017-02-25] MEDS: HEPARIN SUBQ SCH ×2 (09:25→20:46)
[2017-02-25] MEDS: FOLIC ACID PO SCH (09:25)
[2017-02-25] MEDS: LOFIBRA PO SCH (09:26)
[2017-02-25] MEDS: NS 1,000 ML IV SCH ×2 (09:26→20:45)
[2017-02-25] MEDS: TOPROL XL PO SCH (09:26)
[2017-02-25] MEDS: PRINIVIL PO SCH (09:26)
[2017-02-25] MEDS: MAG-OX PO SCH (09:26)
[2017-02-25] MEDS: LANTUS SUBQ SCH (09:27)
[2017-02-25] MEDS: NORVASC PO SCH (09:27)
[2017-02-25] MEDS: TORADOL IV PRN ×2 (11:20→20:46)
--- NOTE | 2017-02-25 12:06 | PROGRESS NOTE ---
DATE: 02/25/2017 SUBJECTIVE: This patient states that she is feeling better. The diarrhea is getting much better. She has no complaints today, just generalized weakness and cough. OBJECTIVE: Vital signs: Temperature 98.4, pulse 91, respiratory rate 18, blood pressure 159/75, oxygen saturation 95 on 2 L of nasal cannula. HEENT: Head normocephalic, no trauma, CATHY. Neck: Supple, no JVD, no masses. Central trachea. Chest: Decreased breath sounds at the level of the right lower lung with rhonchi. Cardiovascular: RRR, no murmurs. Abdomen: Soft. Mild tenderness to palpation at the level of the periumbilical area. No rebound. No signs of peritoneal irritation. No distention. Obese. Extremities: No edema, no clubbing, no cyanosis. Neurological: The patient is alert and oriented x3, no focal neurologic deficits. LABORATORY: WBC 12.3, hemoglobin 8.6, hematocrit 26.4, platelets 236. Sodium 136, potassium 4.7, chloride 106, bicarbonate 15, BUN 25, creatinine 2.5, glucose 159, calcium 9. ASSESSMENT AND PLAN: 1. Diabetic ketoacidosis, better. Will continue with insulin regimen and pattern blood sugars. The anion gap today is 15. She will receive a dose of bicarbonate. Will monitor the BMP in the afternoon. 2. Sepsis likely secondary to left lower lobe pneumonia. This patient also has Clostridium difficile colitis. Infectious Disease is currently following this patient. 3. Bacteremia secondary to methicillin-sensitive Staphylococcus aureus. Continue with cefazolin as per ID. 4. Diarrhea secondary to Clostridium difficile colitis. The diarrhea is getting better. Will continue to monitor. Continue with the same management. 5. Hypothyroidism. Continue with levothyroxine. 6. Community-acquired pneumonia. Continue with antibiotics. I will add breathing treatment. 7. Anemia. Aware. 8. DVT prophylaxis. Continue with heparin. 9. Uncontrolled diabetes. Hemoglobin A1c is 14.8. It is really uncontrolled. I will continue with Lantus and sliding scale insulin. cc: Andres Castellanos MD
[2017-02-25 15:06] LABS: CALCIUM 8.3 mg/dL (8.8-10.2); POTASSIUM 4.8 mmol/L (3.5-5.1)
[2017-02-25] MEDS: DUONEB (A & A) INH SCH ×4 (16:07→23:21)
[2017-02-25] MEDS: CALMOSEPTINE OINTMENT TOP PRN (20:30)
[2017-02-25] MEDS: AMBIEN PO PRN (20:44)
[2017-02-25] MEDS: NIASPAN PO SCH (20:45)
[2017-02-25] MEDS: LIPITOR PO SCH (20:45)
[2017-02-25] MEDS: PROTONIX IV SCH (20:45)
[2017-02-26] MEDS: CALMOSEPTINE OINTMENT TOP PRN ×2 (00:02→04:21)
[2017-02-26] MEDS: VANCOMYCIN ORAL SOLN PO SCH ×4 (02:00→20:56)
[2017-02-26] MEDS: DUONEB (A & A) INH SCH ×6 (03:36→23:09)
[2017-02-26 05:50] LABS: CALCIUM 8.8 mg/dL (8.8-10.2); POTASSIUM 4.4 mmol/L (3.5-5.1)
[2017-02-26 06:02] LABS: BASO% 0.7 % (0.0-0.8); EOS# 0.17 X1000 (0.0-0.7); EOS% 1.4 % (0.0-10.0); HEMATOCRIT 26.8 % (37.0-47.0); HEMOGLOBIN 8.6 g/dL (12.0-16.0); IMM GRAN# 1.32 X1000 (0.0-0.04); IMM GRAN% 10.9 % (0.0-0.5); LYMPH# 1.24 X1000 (1.2-3.4); LYMPH% 10.3 % (20.5-51.1); MANUAL DIFF NEEDED? YES; MCH 30.1 PG (27-31); MCHC 32.1 g/dL (33-37); MCV 93.7 FL (81-99); MONO# 0.94 X1000 (0.11-0.59); MONO% 7.8 % (1.7-9.3); MPV 8.7 FL (7.4-10.4); NEUT% 68.9 % (42.2-75.2); PLT 260 X1000 (130-400); RBC 2.86 XMIL (4.2-5.4)
[2017-02-26] MEDS: TORADOL IV PRN ×2 (06:27→16:21)
[2017-02-26] MEDS: NS 1,000 ML IV SCH ×2 (06:27→17:01)
[2017-02-26] MEDS: SYNTHROID PO SCH (06:27)
[2017-02-26] MEDS: KEFZOL 1 GM/D5W 1 GM/50 ML IVPB IV SCH ×3 (06:28→18:35)
[2017-02-26] MEDS: HUMULIN R SUBQ SCH ×5 (06:29→20:58)
[2017-02-26 07:57] LABS: LYMPHS 17 % (21-51); MONO 18 % (1-9)
[2017-02-26] MEDS ORDERED: INSULIN PEN NEEDLES ONE (08:37)
[2017-02-26] MEDS: TOPROL XL PO SCH (08:50)
[2017-02-26] MEDS: APRESOLINE PO SCH ×3 (08:51→20:56)
[2017-02-26] MEDS: FOLIC ACID PO SCH (08:52)
[2017-02-26] MEDS: PRINIVIL PO SCH (08:52)
[2017-02-26] MEDS: MAG-OX PO SCH (08:52)
[2017-02-26] MEDS: NORVASC PO SCH (08:52)
[2017-02-26] MEDS: IMDUR PO SCH (08:53)
[2017-02-26] MEDS: HEPARIN SUBQ SCH ×2 (08:53→20:57)
[2017-02-26] MEDS: LOFIBRA PO SCH (08:54)
[2017-02-26] MEDS: LANTUS SUBQ SCH (08:54)
--- NOTE | 2017-02-26 10:37 | PROGRESS NOTE ---
DATE: 02/26/2017 SUBJECTIVE: This patient states that she is feeling better. When I evaluated this patient she was sitting on the bed. Apparently, her bowel movements are more formed. Family members at the bedside. OBJECTIVE: Vital Signs: Temperature 98.2 degrees, pulse 90, respiratory rate 19, blood pressure 141/62, oxygen saturation 97% on 2 L of nasal cannula. HEENT: Head normocephalic. No trauma. PERRLA. Neck: Supple. No JVD. No masses. Central trachea. Chest: Decreased breath sounds at the level of the right lower lung with rhonchi. Cardiovascular: RRR. No murmurs. Abdomen: Soft. Mild tenderness to palpation at the level of the periumbilical area. No rebound. No signs of peritoneal irritation. No distention. Obese. Extremities: No edema. No clubbing. No cyanosis. Neurological: The patient is alert and oriented x3. No focal neurological deficits. LABORATORY: WBC 12, hemoglobin 8.6, hematocrit 26.8, platelets 260,000. Sodium 139, potassium 4.4, chloride 111, bicarbonate 16, BUN 18, creatinine 2.3, glucose 229, calcium 8.8. ASSESSMENT AND PLAN: 1. Diabetic ketoacidosis, resolved. The anion gap is 12 but this patient's bicarbonate is still low. This patient has CKD as well. I will consult nephrology department to evaluate this patient. 2. Sepsis secondary to left lower lobe pneumonia. This patient also has C. difficile colitis and bacteremia. Infectious disease department is following this patient. We will continue following their recommendations. 3. Diarrhea secondary to Clostridium difficile colitis. This is getting better. We will continue to monitor. 4. Hypothyroidism. Continue with levothyroxine. 5. Community-acquired pneumonia. Continue with antibiotics. We will continue with breathing treatment as well. 6. Anemia. Aware. 7. Deep vein thrombosis prophylaxis. Continue with heparin. 8. Uncontrolled diabetes. Her hemoglobin A1c is 14.8; this is really uncontrolled. I will continue with Lantus and sliding scale insulin for now. CRITICAL CARE TIME: 35 minutes. cc: Andres Castellanos MD
--- NOTE | 2017-02-26 17:48 | PROGRESS NOTE ---
DATE: 02/26/2017 PRESENT ILLNESS: The patient has an oxacillin sensitive Staph aureus pneumonia with secondary bacteremia. She also has Clostridium difficile diarrhea. Today I noticed that the patient has a vaginal perineal infection, including the vaginal area and the perirectal area. MEDICATIONS: The patient is receiving Ancef for the bacteremia pneumonia and p.o. vancomycin for the patient's Clostridium difficile diarrhea. PHYSICAL EXAMINATION: Vital Signs: Temperature is 97.6 degrees, respirations 18, blood pressure 132/42. General: The patient is elderly. She appears chronically ill. Lungs: Some scattered rhonchi, the patient frequently coughed. Cardiovascular: Regular heart rate. Abdomen: Soft and nontender. : Examination of the perirectal, perineal and vaginal area shows some erythematous changes in the skin. Minimal actually in the vaginal area. LABORATORY AND X-RAY: The CBC today shows a white count of 12,090, hemoglobin 8.6 and platelet count 260,000. Creatinine is 2.3. GFR is 21. The CPK is 76. There is no new x-ray for today. ASSESSMENT AND PLAN: 1. For the patient's bacteremia and pneumonia, I plan to continue Ancef for her Clostridium difficile diarrhea. I plan to continue vancomycin p.o. For the perineal yeast infection, I have ordered Lotrisone cream to be put on every 12 hours in the perineal area to include the vaginal area and the perirectal area. This is day 2 of the Ancef and it is day 3 of the p.o. vancomycin solution. 2. Comorbidities include diabetes mellitus, chronic kidney disease, peripheral vascular disease and gastroesophageal reflux disease. cc: Saravanan Torres MD
[2017-02-26] MEDS: AMBIEN PO PRN (20:56)
[2017-02-26] MEDS: LYRICA PO SCH (20:57)
[2017-02-26] MEDS: LIPITOR PO SCH (20:57)
[2017-02-26] MEDS: NIASPAN PO SCH (20:57)
[2017-02-26] MEDS: PROTONIX IV SCH (20:57)
[2017-02-26] MEDS: LOTRISONE CREAM TOP SCH (20:57)
[2017-02-26] MEDS ORDERED: NORCO-5 PO ONE (23:08)
[2017-02-27] MEDS: HUMULIN R SUBQ SCH ×6 (01:00→22:44)
[2017-02-27] MEDS: VANCOMYCIN ORAL SOLN PO SCH ×4 (01:50→21:08)
[2017-02-27] MEDS: DUONEB (A & A) INH SCH ×6 (03:08→22:42)
[2017-02-27] MEDS: NS 1,000 ML IV SCH ×3 (05:20→16:25)
[2017-02-27] MEDS: KEFZOL 1 GM/D5W 1 GM/50 ML IVPB IV SCH ×2 (06:24→18:29)
[2017-02-27] MEDS: SYNTHROID PO SCH (06:24)
[2017-02-27 06:43] LABS: BASO% 0.8 % (0.0-0.8); EOS# 0.26 X1000 (0.0-0.7); EOS% 2.2 % (0.0-10.0); HEMATOCRIT 25.5 % (37.0-47.0); HEMOGLOBIN 7.9 g/dL (12.0-16.0); IMM GRAN% 15.2 % (0.0-0.5); LYMPH% 12.6 % (20.5-51.1); MANUAL DIFF NEEDED? YES; MCH 29.4 PG (27-31); MCV 94.8 FL (81-99); MONO# 0.96 X1000 (0.11-0.59); MONO% 8.1 % (1.7-9.3); MPV 8.7 FL (7.4-10.4); NEUT% 61.1 % (42.2-75.2); PLT 272 X1000 (130-400); RBC 2.69 XMIL (4.2-5.4)
[2017-02-27 06:49] LABS: CALCIUM 8.5 mg/dL (8.8-10.2); POTASSIUM 4.5 mmol/L (3.5-5.1)
[2017-02-27 07:40] LABS: BANDS 3 % (0-1); EOS 3 % (1-10); LYMPHS 15 % (21-51); MONO 4 % (1-9)
[2017-02-27] MEDS: FOLIC ACID PO SCH (08:17)
[2017-02-27] MEDS: APRESOLINE PO SCH ×3 (08:17→21:06)
[2017-02-27] MEDS: HEPARIN SUBQ SCH ×2 (08:17→21:07)
[2017-02-27] MEDS: IMDUR PO SCH (08:18)
[2017-02-27] MEDS: LANTUS SUBQ SCH (08:18)
[2017-02-27] MEDS: LOFIBRA PO SCH (08:18)
[2017-02-27] MEDS: PRINIVIL PO SCH (08:19)
[2017-02-27] MEDS: NORVASC PO SCH (08:19)
[2017-02-27] MEDS: LOTRISONE CREAM TOP SCH ×2 (08:19→21:08)
[2017-02-27] MEDS: TOPROL XL PO SCH (08:19)
[2017-02-27] MEDS: LYRICA PO SCH ×2 (08:19→21:06)
[2017-02-27] MEDS: MAG-OX PO SCH (08:19)
--- NOTE | 2017-02-27 09:28 | Diag Imaging Result Document ---
PROCEDURE NAME: CHEST-1 VIEW - 02/27/2017 PORTABLE CHEST X-RAY, 02/27/2017: COMPARISON: 02/23/2017. FINDINGS: There is significant worsening hazy alveolar infiltrate throughout the left lung. There is worsening infiltrate in the right lateral costophrenic angle as well. There is perhaps slight worsening in the cardiomegaly and definite worsening in the pulmonary vascular congestion. IMPRESSION: Worsening from prior.
[2017-02-27] MEDS: ULTRAM PO PRN ×3 (10:20→21:47)
--- NOTE | 2017-02-27 11:15 | PROGRESS NOTE ---
DATE: 02/27/2017 SUBJECTIVE: This patient states that she is feeling better, she is complaining of generalized pain. I will start this patient with a low dose of tramadol, family members at the bedside. Yesterday this patient was evaluated by Infectious Disease Department, apparently this patient also has some kind of yeast infection in the perineal area. OBJECTIVE: Vital Signs: Temperature 98.7 degrees, pulse 95, respiratory rate 18, blood pressure 163/73, O2 saturation 90% on 2 L of nasal cannula. HEENT: Head normocephalic. No trauma. PERRLA. Neck: Supple. No JVD. No masses. Central trachea. Chest: Decreased breath sounds at the level of the right lower lung with rhonchi. Cardiovascular: RRR. No murmurs. Abdomen: Soft, mild tenderness to palpation at the level of the periumbilical area. No rebound. No signs of peritoneal irritation. No distention. Obese. Extremities: No edema. No clubbing. No cyanosis. Neurological: The patient is alert and oriented x3. No focal neurological deficits. LABORATORY: WBC 11.8, hemoglobin 7.9, hematocrit 25.5, platelets 272,000. Bands 3. Sodium 139, potassium 4.5, chloride 111, bicarbonate 17, BUN 16, creatinine 2.2, glucose 166, calcium 8.5. ASSESSMENT AND PLAN: 1. Diabetic ketoacidosis resolved anion gap is closed. But this patient's bicarbonate is still low, the Nephrology department has been consulted and probably they will put this patient on bicarbonate p.o. 2. Sepsis secondary to left lower lobe pneumonia. Also this patient has C. difficile colitis and bacteremia. Infectious disease department following this patient. Continue with the same treatment. 3. Yeast infection at the level of the perineal area. Continue with the same management. 4. Diarrhea secondary to Clostridium difficile colitis, no more diarrhea. This is better. 5. Hypothyroidism. Continue with levothyroxine. 6. Community-acquired pneumonia. Continue with antibiotics. Also, we will continue with the breathing treatment. 7. Anemia aware. 8. Deep vein thrombosis prophylaxis. Continue with heparin. 9. Uncontrolled diabetes. Her hemoglobin A1c is 14.8, this is really uncontrolled. I will continue with Lantus and sliding scale insulin for now. CRITICAL CARE TIME: Thirty-five minutes. cc: Andres Castellanos MD
[2017-02-27] MEDS: SODIUM BICARBONATE PO SCH ×2 (11:39→21:06)
[2017-02-27] MEDS: TESSALON PO PRN (15:04)
[2017-02-27] MEDS: TYLENOL PO PRN ×2 (16:25→21:47)
--- NOTE | 2017-02-27 16:50 | CONSULTATION ---
DATE OF CONSULTATION: 02/27/2017 REASON FOR ADMISSION: DKA, pneumonia, Clostridium difficile. REASON FOR CONSULTATION: Chronic kidney disease, acidosis. CONSULTING PHYSICIAN: Dr. Flores. HISTORY OF PRESENT ILLNESS: This is a 71-year-old female known to our service for chronic kidney disease secondary to diabetes and hypertension with a baseline creatinine of 2.1. She was last seen in our office at the end of December and renal function had been stable since her last discharge in May. She had progression of her renal function at that time. Her creatinine has stabilized at around 2.1 in the office. The patient came into the emergency room secondary to her sugars being "out of control." She is quite a brittle diabetic as well as has complex hypertension. She became very confused, came into the emergency room, found that her blood sugar was 829, creatinine was up to 3. She had been treated for this, was found to meet SIRS criteria, was found to have pneumonia. Also being treated for C. difficile while she has been in the hospital. During this time her creatinine has come down from 3 down to 2.2. She came in slightly acidotic with a CO2 of 11. This is improved to 19, has kind of hovered around 16 to 17 since then. She was also noted initially to have a lactate on admission of 1.6. Because of her renal function unchanged and persistent acidosis, we have been asked to see her. Today she is awake and alert and oriented in bed. She states that they are planning to send her to rehab. She has been able to eat without difficulty and has been ambulatory only to the bedside commode with assistance. PAST MEDICAL HISTORY: 1. Chronic kidney disease stage 4. Her renal function had declined back last fall and has really never recovered since then. 2. Diabetes. 3. Hypertension. 4. Hypothyroidism. 5. Chronic anemia. 6. Hyperlipidemia. 7. Peripheral artery disease. 8. Acidosis secondary to chronic kidney disease, stage 4. PAST SURGICAL HISTORY: , hysterectomy, cataract removal, and retinal detachment repair. ALLERGIES: Penicillin and SHELLFISH. HOME MEDICATIONS: Allopurinol, Norvasc, Lipitor, vitamin D, fenofibrate, folic acid, Lasix, Apresoline, NovoLog, Lantus, isosorbide, levothyroxine, Prinivil, Mag-Ox, metoprolol-XL, Niaspan, Prilosec, Klor-Con and Lyrica. FAMILY HISTORY: Noncontributory. SOCIAL HISTORY: She lives independently. She has a daughter who comes and assist. No ETOH, tobacco, or illicit drug use. She has been somewhat noncompliant with her medication regimen in the past. REVIEW OF SYSTEMS: Currently negative. PHYSICAL EXAMINATION: Vital Signs: Temperature 98.7 degrees, pulse 95, respiratory rate 18, blood pressure 153/71. Intake 2.7 L, output 2.2 L. General: This is an elderly female resting in bed. She is awake and alert and able to give appropriate history and assists with exam. HEENT: Normocephalic, atraumatic. Oral mucosa is moist. Dentition fair. Tongue is midline. Neck: Supple. Trachea midline. No JVD noted in a reclined position. Cardiovascular: Reveals a regular rate and rhythm. There is no murmur or gallop appreciated. Pulmonary: She has equal excursion. She has some decreased breath sounds posteriorly. She is on O2 supplementation via nasal cannula. She has no increased work of breathing during conversation. Abdomen: Obese, soft, with positive bowel sounds. Genitourinary: She has a Michel catheter with a moderate amount of yellow urine. Extremities: She has no pretibial edema. No clubbing or cyanosis. She is moving all extremities. Integumentary: She has ecchymoses noted to bilateral upper extremities. Warm and dry with somewhat pale. Neurologic: Grossly nonfocal. LAB DATA: WBC of 11.8, hemoglobin 7.9, hematocrit 25.5, and platelet count of 272,000. Sodium 139, potassium 4.5, chloride 111, CO2 17, BUN 16, creatinine 2.2. Her urine had moderate protein and trace blood. ASSESSMENT AND PLAN: 1. Chronic kidney disease, stage 4. The patient is actually at her historical baseline over the last 6 months with a creatinine of 2.2. We have no further adjustments to her medications at this time. 2. Acidosis. The patient was noted to be acidotic at her last visit. The office plan was to initiate sodium bicarbonate therapy if she remained so on her next visit. Since she has persisted with acidosis, we will go ahead and add sodium bicarbonate 650 mg twice daily. 3. Hypertension, acceptable. 4. Anemia of chronic disease. She has had pneumonia. We would hold off on any kind of aggressive therapy unless she needs a transfusion. We will check iron stores and once she has recovered from her pneumonia, if warranted, would set her up for outpatient tired. 5. Fluid volume. She is somewhat positive over the last 4 days. However, over the last 24 hours her urine output has picked up and she is somewhat euvolemic and will continue to monitor closely. DISPOSITION: We understand that preparation is underway to send her to rehab when she is ready for discharge. We will set her up for a 2 week appointment after discharge for followup on her renal disease and acidosis and anemia. Seen, data reviewed, discussed with Efe Qiu on 02/28/17. I agree with the above assessment and plan of care. rg Dictated by WIL Almaguer for Pankaj Galindo MD cc: Pankaj Galindo MD [facility]
[2017-02-27] MEDS: LIPITOR PO SCH (21:06)
[2017-02-27] MEDS: SODIUM CHLORIDE 0.9% INJ SCH (21:07)
[2017-02-27] MEDS: AMBIEN PO PRN (21:07)
[2017-02-27] MEDS: NIASPAN PO SCH (21:07)
[2017-02-27] MEDS: PROTONIX IV SCH (21:07)
[2017-02-28] MEDS: HUMULIN R SUBQ SCH ×6 (01:37→22:22)
[2017-02-28] MEDS: TESSALON PO PRN ×2 (01:54→08:44)
[2017-02-28] MEDS: VANCOMYCIN ORAL SOLN PO SCH ×4 (01:56→21:47)
[2017-02-28] MEDS: DUONEB (A & A) INH SCH ×5 (03:01→18:56)
[2017-02-28 05:24] LABS: BASO% 0.8 % (0.0-0.8); EOS# 0.24 X1000 (0.0-0.7); EOS% 1.8 % (0.0-10.0); HEMATOCRIT 26.6 % (37.0-47.0); HEMOGLOBIN 8.2 g/dL (12.0-16.0); IMM GRAN# 1.95 X1000 (0.0-0.04); IMM GRAN% 14.3 % (0.0-0.5); LYMPH# 1.55 X1000 (1.2-3.4); LYMPH% 11.4 % (20.5-51.1); MANUAL DIFF NEEDED? YES; MCH 29.3 PG (27-31); MCHC 30.8 g/dL (33-37); MONO# 1.02 X1000 (0.11-0.59); MONO% 7.5 % (1.7-9.3); MPV 8.2 FL (7.4-10.4); NEUT% 64.2 % (42.2-75.2); PLT 287 X1000 (130-400)
[2017-02-28 05:39] LABS: CALCIUM 8.6 mg/dL (8.8-10.2); POTASSIUM 4.4 mmol/L (3.5-5.1)
[2017-02-28 05:50] LABS: BANDS 18 % (0-1); EOS 2 % (1-10); LYMPHS 16 % (21-51); MONO 8 % (1-9)
[2017-02-28] MEDS: SYNTHROID PO SCH (06:53)
--- NOTE | 2017-02-28 07:29 | PROGRESS NOTE ---
DATE: 02/28/2017 PRESENT ILLNESS: The patient has an oxacillin Staphylococcus aureus pneumonia with secondary bacteremia. I think the pneumonia has cleared. Now, she appears to have congestive heart failure with pulmonary edema. The patient also has Clostridium difficile diarrhea and a Brianna perineal infection involving the vaginal area and the perirectal area. MEDICATIONS: The patient is on Ancef for the bacteremia and pneumonia. The Ancef is being given IV. She is also on p.o. vancomycin for the Clostridium difficile diarrhea and the patient receives topical therapy for her perineal candidiasis with Lotrisone cream. PHYSICAL EXAMINATION: Vital Signs: Temperature is 98.1 degrees, pulse 85, respirations 18, blood pressure 139/98. General: This is an obese, elderly female who is in no acute distress. She is complaining of some difficulty breathing. Lungs: Clear to auscultation. Cardiovascular: Regular heart rate. Abdomen: Soft and nontender. LAB AND X-RAY: Chest x-ray shows worsening pulmonary vascular congestion. CBC shows a white count of 13,630, hemoglobin 8.2, and platelet count 287,000. Creatinine is 2.1. GFR is 23. The patient's repeat blood cultures thus far are sterile. ASSESSMENT AND PLAN: This is day 4 of treatment with Ancef and day 5 of treatment with vancomycin by mouth. The patient has bacteremia, pneumonia, and Clostridium difficile diarrhea. The plan will be to continue with the current medications, namely intravenous cefazolin and oral vancomycin. COMORBIDITIES: Include diabetes mellitus, chronic kidney disease, peripheral vascular disease, and gastroesophageal reflux disease. cc: Saravanan Torres MD
[2017-02-28] MEDS: HEPARIN SUBQ SCH ×2 (08:41→21:46)
[2017-02-28] MEDS: LANTUS SUBQ SCH (08:41)
[2017-02-28] MEDS: KEFZOL 1 GM/D5W 1 GM/50 ML IVPB IV SCH ×2 (08:41→21:45)
[2017-02-28] MEDS: TOPROL XL PO SCH (08:42)
[2017-02-28] MEDS: FOLIC ACID PO SCH (08:42)
[2017-02-28] MEDS: IMDUR PO SCH (08:42)
[2017-02-28] MEDS: PRINIVIL PO SCH (08:42)
[2017-02-28] MEDS: MAG-OX PO SCH (08:42)
[2017-02-28] MEDS: LYRICA PO SCH ×2 (08:43→21:46)
[2017-02-28] MEDS: NORVASC PO SCH (08:43)
[2017-02-28] MEDS: SODIUM BICARBONATE PO SCH ×2 (08:44→21:46)
[2017-02-28] MEDS: LOTRISONE CREAM TOP SCH ×2 (08:44→21:47)
[2017-02-28] MEDS: LOFIBRA PO SCH (08:50)
[2017-02-28] MEDS: APRESOLINE PO SCH ×3 (08:50→21:45)
[2017-02-28] MEDS: LASIX IV SCH ×2 (11:07→21:46)
--- NOTE | 2017-02-28 11:44 | PROGRESS NOTE ---
DATE: 02/28/2017 SUBJECTIVE: Patient currently resting in bed. She has no complaints. She is waiting to go to rehab. OBJECTIVE: Vital Signs: Temperature 98.1 degrees, pulse 85, respiratory rate 18, blood pressure 139/98. Intake 170 mL. Output 1.4 L. General: Elderly female, resting in bed. Awake and alert. No acute distress. HEENT: Normocephalic, atraumatic. Oral mucosa moist. Neck: Supple. Thick. Cardiovascular: Regular rate and rhythm. Pulmonary: Equal excursion. No wheezes or rhonchi noted. No increased work of breathing. Abdomen: Obese, soft. Positive bowel sounds. : Not inspected. Michel catheter. Extremities: She has some significant ecchymosis noted to the left upper extremity where her IV was previously. She has dependent edema bilateral upper extremities. There is no pretibial edema. She has dependent edema noted to the thighs. Integumentary: Skin is warm and dry, thin. LAB DATA: WBC of 13.6, hemoglobin 8.2. Sodium 139, potassium 4.4, CO2 17, creatinine 2.1, calcium 8.6. ASSESSMENT AND PLAN: 1. Chronic kidney disease stage 4. Patient remains at her historical baseline for renal function. Continue to monitor. 2. Acidosis. We started her on sodium bicarbonate yesterday. We will follow with her in the office in 2 weeks to make adjustments if needed. 3. Hypertension. Acceptable. 4. Anemia of chronic disease. Workup as an outpatient. 5. Fluid volume. IV fluids are on hold at this time. She is actually in negative territory overnight. Seen, data reviewed, discussed with Efe Qiu on 02/29/16. I agree with the above assessment and plan of care. rg Dictated by WIL Almaguer for Pankaj Galindo MD cc: Pankaj Galindo MD [facility]
--- NOTE | 2017-02-28 12:22 | PROGRESS NOTE ---
DATE: 02/28/2017 SUBJECTIVE: The patient reports feeling better. No fever or chills reported. OBJECTIVE: Vital Signs: Temperature 98.6 degrees, heart rate 92, respiratory rate 20, blood pressure 143/41 on oxygen saturation 94% 2 L nasal cannula. General Examination : This is a chronically ill-looking and frail, 71-year-old female, lying in bed in no acute distress. HEENT: Head is normocephalic, atraumatic. Anicteric sclerae and pale conjunctivae. Mucous membranes moist. Neck: Supple. No JVD noted. No carotid bruits. No lymphadenopathy. No thyromegaly. Cardiovascular exam: S1, S2 heard. No murmurs, gallops, or rubs. Regular rate and rhythm. Respiratory exam: Clear bilaterally to auscultation, although there are decreased breath sounds at the level of the right lower lung, but patient is not using any accessory muscles or having work of breathing. Abdomen: Soft. Mildly tenderness to palpation around the periumbilical area, but there is no rebound or signs of peritoneal irritation. No distention. Extremities: No edema, clubbing or cyanosis. Peripheral pulses present in both legs. Neurological exam: Patient is alert and oriented x3. No focal neurological deficits. LABORATORY DATA: White cell count 13.63, hemoglobin 8.2, hematocrit 26.6, platelets 287. BMP shows creatinine 2.1 and GFR 23 with BUN 13. ASSESSMENT: 1. Diabetic ketoacidosis. That condition resolved and anion gap has closed. 2. Sepsis secondary to left lower lobe pneumonia, stable. Patient is not on any vasopressors. Blood pressure is fine. Infectious Disease, Dr. Torres, is following this patient. By now, the patient is on cefazolin intravenous. 3. Clostridium difficile colitis, vancomycin oral. We will continue with the same management. 4. Yeast infection at the level of the perineal area. We will continue with antifungal medications topical. 5. Diarrhea secondary to Clostridium difficile infection. Patient's diarrhea has resolved. 6. Hypothyroidism. Will continue with levothyroxine. 7. Community-acquired pneumonia. We will continue with antibiotics (in this case, cefazolin). 8. Anemia. Aware. 9. Deep vein thrombosis prophylaxis on heparin. 10. Uncontrolled diabetes mellitus. Hemoglobin A1c is 14.8. We will continue with Lantus and sliding scale insulin. cc: George Turner MD [facility]
[2017-02-28] MEDS: ZOFRAN IV PRN (12:27)
[2017-02-28] MEDS ORDERED: SODIUM CHLORIDE 0.9% 10 ML ONE (17:07)
[2017-02-28] MEDS: LIPITOR PO SCH (21:45)
[2017-02-28] MEDS: VITAMIN D PO SCH (21:45)
[2017-02-28] MEDS: AMBIEN PO PRN (21:46)
[2017-02-28] MEDS: PROTONIX IV SCH (21:46)
[2017-02-28] MEDS: SODIUM CHLORIDE 0.9% INJ SCH (21:46)
[2017-02-28] MEDS: NIASPAN PO SCH (21:46)
[2017-02-28] MEDS: ULTRAM PO PRN (22:17)
[2017-02-28] MEDS: TYLENOL PO PRN (22:17)
[2017-03-01] MEDS: HUMULIN R SUBQ SCH ×6 (00:27→20:57)
[2017-03-01] MEDS: DUONEB (A & A) INH SCH ×7 (02:30→22:46)
[2017-03-01] MEDS: VANCOMYCIN ORAL SOLN PO SCH ×4 (03:42→20:50)
--- NOTE | 2017-03-01 07:12 | PROGRESS NOTE ---
DATE: 03/01/2017 PRESENT ILLNESS: The patient has an oxacillin sensitive Staphylococcus aureus pneumonia and bacteremia. She also has probable Clostridium difficile diarrhea and Brianna perineal infection involving the vaginal and perirectal areas. MEDICATIONS: The patient is on Ancef IV for the prior pneumonia and bacteremia. This is day 5 of Ancef. She is also on p.o. vancomycin for the probable Clostridium difficile diarrhea. This is day 6 for the oral vancomycin. The patient's topical treatment of her perineal candidiasis, the agent is Lotrisone. This is day 3 of treatment with the Lotrisone cream. PHYSICAL EXAMINATION: Vital Signs: Temperature is 98.4 degrees, pulse 75, respirations 20, blood pressure 147/54. General: This is an obese, elderly female who is in no acute distress. Lungs: Clear to auscultation. Cardiovascular: The heart rate is irregular but when looking at the monitor, it appears that the patient has sinus rhythm with frequent PVCs. Abdomen: Soft and nontender. Neurologic: Patient is awake. She can move her extremities. There is no tremor. LAB AND X-RAY: No new lab or x-ray. ASSESSMENT AND PLAN: The patient has bacteremia and pneumonia, Clostridium difficile diarrhea, and perineal candidiasis. The plan is to continue the medications for at least another 8 days to complete a 2 week treatment course. COMORBIDITIES: Include diabetes mellitus, chronic kidney disease, peripheral vascular disease, gastroesophageal reflux disease. cc: Saravanan Torres MD [facility]
[2017-03-01] MEDS: SYNTHROID PO SCH (07:25)
[2017-03-01 08:18] LABS: ALBUMIN 2.1 g/dL (3.5-5.0); CALCIUM 8.8 mg/dL (8.8-10.2); POTASSIUM 4.2 mmol/L (3.5-5.1)
[2017-03-01 08:31] LABS: BASO% 0.7 % (0.0-0.8); EOS# 0.19 X1000 (0.0-0.7); EOS% 1.4 % (0.0-10.0); HEMATOCRIT 27.1 % (37.0-47.0); HEMOGLOBIN 8.5 g/dL (12.0-16.0); IMM GRAN# 1.39 X1000 (0.0-0.04); IMM GRAN% 10.3 % (0.0-0.5); LYMPH# 1.43 X1000 (1.2-3.4); LYMPH% 10.6 % (20.5-51.1); MANUAL DIFF NEEDED? YES; MCH 29.8 PG (27-31); MCHC 31.4 g/dL (33-37); MCV 95.1 FL (81-99); MONO# 0.87 X1000 (0.11-0.59); MONO% 6.4 % (1.7-9.3); MPV 8.3 FL (7.4-10.4); NEUT% 70.6 % (42.2-75.2); PLT 318 X1000 (130-400); RBC 2.85 XMIL (4.2-5.4)
[2017-03-01 08:50] LABS: BANDS 8 % (0-1); EOS 2 % (1-10); LYMPHS 6 % (21-51); MONO 4 % (1-9)
--- NOTE | 2017-03-01 08:52 | Diag Imaging Result Document ---
PROCEDURE NAME: CHEST-2 VIEWS - 03/01/2017 FRONTAL AND LATERAL CHEST, TWO VIEWS: COMPARISON: 02/27/2017. FINDINGS: The lungs are hyperexpanded. There is an increased AP diameter to the chest. There are infiltrates in the lower left lung and there are mild bilateral pleural effusions. The vessels are not distended. Interstitial markings are less pronounced on the current exam. IMPRESSION: Overall interval improvement.
[2017-03-01] MEDS: HEPARIN SUBQ SCH ×2 (08:54→20:58)
[2017-03-01] MEDS: IMDUR PO SCH (08:55)
[2017-03-01] MEDS: LYRICA PO SCH ×2 (08:56→20:58)
[2017-03-01] MEDS: SODIUM BICARBONATE PO SCH ×2 (08:56→20:57)
[2017-03-01] MEDS: APRESOLINE PO SCH ×3 (08:56→20:58)
[2017-03-01] MEDS: MAG-OX PO SCH (08:56)
[2017-03-01] MEDS: NORVASC PO SCH (08:56)
[2017-03-01] MEDS: PRINIVIL PO SCH (08:56)
[2017-03-01] MEDS: LOTRISONE CREAM TOP SCH ×2 (08:57→20:59)
[2017-03-01] MEDS: FOLIC ACID PO SCH (08:58)
[2017-03-01] MEDS: KEFZOL 1 GM/D5W 1 GM/50 ML IVPB IV SCH ×2 (08:59→20:56)
[2017-03-01] MEDS: LANTUS SUBQ SCH (09:00)
[2017-03-01] MEDS: LOFIBRA PO SCH (09:01)
[2017-03-01] MEDS: TOPROL XL PO SCH (09:02)
[2017-03-01] MEDS: TESSALON PO PRN (09:02)
[2017-03-01] MEDS: LASIX IV SCH ×2 (09:32→20:57)
--- NOTE | 2017-03-01 09:40 | PROGRESS NOTE ---
DATE: 03/01/2017 SUBJECTIVE: Patient reports feeling better, although she reports feeling very weak today. Yesterday, she was able to sit in the chair. Denies any fever, chills, shortness of breath, or chest pain. OBJECTIVE: Vital Signs: Temperature 98.4 degrees, heart rate 88, respiratory rate 18, blood pressure 142/51, O2 saturation 94% on 2 L nasal cannula. General Examination: This is a 71-year- old, female lying in bed, in no acute distress. HEENT: Head is normocephalic and atraumatic. Anicteric sclerae and pale conjunctivae. Mucous membranes moist. Neck: Supple. No JVD noted. No carotid bruits. No lymphadenopathy. No thyromegaly. Cardiovascular Examination: S1 and S2 heard. No murmurs, gallops, or rubs. Regular rate and rhythm. Respiratory Examination: Decreased breath sounds on the right lower lung. The patient is not using any accessory muscles or having work of breathing. Abdomen: Soft. Mild tenderness to palpation around the periumbilical area but there is no sign of peritoneal irritation. No rebound. No distention. Extremities: No edema, clubbing, or cyanosis. Peripheral pulses present in both legs. Neurological Examination: Patient is alert and oriented x3. Moves 4 extremities. Laboratory Data: White cell count 13.52, hemoglobin 8.5, hematocrit 27.1, platelets 318,000. BMP remarkable for creatinine 2.4. ASSESSMENT AND PLAN: 1. Diabetic ketoacidosis, resolved. 2. Sepsis secondary to left lower lobe pneumonia. Sepsis has resolved. For treatment of pneumonia, the patient currently is on cefazolin intravenous. Dr. Torres from infectious disease is following this patient. While we have isolated that it is methicillin-sensitive Staphylococcus aureus, we will continue with the same management. 3. Clostridium difficile infection. The patient's diarrhea has stopped. Patient is on vancomycin oral. Dr. Torres is following this patient. We will follow recommendations. 4. Yeast infection in the perineal area. We will continue with Lotrimin topical. 5. Hypothyroidism. We will continue with home medications, on levothyroxine. 6. Community-acquired pneumonia. As we mentioned above, we will continue with cefazolin. 7. Anemia of chronic disease, stable. 8. Uncontrolled diabetes mellitus. We will continue with Lantus and sliding scale insulin. 9. Deep venous thrombosis prophylaxis, on heparin. 10. Patient has become very weak while she was in the hospital so we have put a consult for social science professor for a rehabilitation facility. Family agreed with that. cc: George Turner MD [facility]
[2017-03-01] MEDS: ULTRAM PO PRN (17:18)
[2017-03-01] MEDS: TYLENOL PO PRN (17:18)
--- NOTE | 2017-03-01 18:12 | PROGRESS NOTE ---
DATE: 03/01/2017 SUBJECTIVE: She states she is still not feeling great. She has not really gotten out of bed and remains very weak. She does not feel like she would be able to go home yet. OBJECTIVE: Vital Signs: Blood pressure 122/65, heart rate 89, respirations 16, afebrile. Intake 1 L. Output 3.3 L. General Appearance: No acute distress. Skin: Warm and dry. Eyes: Conjunctivae are pink. Pupils are equal. Neck: Neck veins are not distended. Heart: Regular. No gallops. Lungs: Have equal breath sounds. No crackles. Abdomen: Soft, nontender. Bowel sounds present. Extremities: No edema, clubbing or cyanosis. LABORATORY DATA: Creatinine 2.4. IMPRESSION: 1. Chronic kidney disease stage 3B to 4. Stable at her baseline. 2. Volume status. Negative fluid balance. No physical exam evidence of volume overload. Chest x-ray performed this morning with improvement in her effusions and pulmonary edema. cc: Pankaj Galindo MD
[2017-03-01] MEDS: AMBIEN PO PRN ×2 (20:54→20:59)
[2017-03-01] MEDS: NIASPAN PO SCH (20:57)
[2017-03-01] MEDS: PROTONIX IV SCH (20:57)
[2017-03-01] MEDS: LIPITOR PO SCH (20:58)
[2017-03-02] MEDS: TYLENOL PO PRN ×2 (00:27→10:50)
[2017-03-02] MEDS: ULTRAM PO PRN ×3 (00:27→20:48)
[2017-03-02] MEDS: HUMULIN R SUBQ SCH ×6 (01:33→20:50)
[2017-03-02] MEDS: VANCOMYCIN ORAL SOLN PO SCH ×4 (02:54→20:41)
[2017-03-02] MEDS: DUONEB (A & A) INH SCH ×6 (03:40→22:40)
[2017-03-02 05:59] LABS: ALBUMIN 2.1 g/dL (3.5-5.0); CALCIUM 8.4 mg/dL (8.8-10.2); POTASSIUM 3.8 mmol/L (3.5-5.1)
[2017-03-02] MEDS: SYNTHROID PO SCH (06:26)
[2017-03-02 06:29] LABS: BASO% 0.6 % (0.0-0.8); EOS# 0.14 X1000 (0.0-0.7); EOS% 1.2 % (0.0-10.0); HEMATOCRIT 24.1 % (37.0-47.0); HEMOGLOBIN 7.6 g/dL (12.0-16.0); IMM GRAN# 0.96 X1000 (0.0-0.04); LYMPH# 1.69 X1000 (1.2-3.4); LYMPH% 14.1 % (20.5-51.1); MANUAL DIFF NEEDED? YES; MCH 29.9 PG (27-31); MCHC 31.5 g/dL (33-37); MCV 94.9 FL (81-99); MONO# 0.96 X1000 (0.11-0.59); MPV 8.7 FL (7.4-10.4); NEUT% 68.1 % (42.2-75.2); PLT 310 X1000 (130-400); RBC 2.54 XMIL (4.2-5.4)
--- NOTE | 2017-03-02 07:36 | PROGRESS NOTE ---
DATE: 03/02/2017 SUBJECTIVE: The patient currently is resting in bed. She states that she has had no difficulty breathing overnight. OBJECTIVE: Vital Signs: Temperature 98.6 degrees, pulse 75, respiratory rate 18, blood pressure 130/55. Intake 325 mL. Output 500 mL. She remains in negative territory over the last 3 days. PHYSICAL EXAMINATION: General: Elderly female, resting in bed. She is awake and alert. HEENT: Normocephalic, atraumatic. Oral mucosa dry. Neck is supple. Trachea midline. Unable to discern JVD. Cardiovascular: Regular rate and rhythm. Pulmonary: She has equal excursion. She is clear bilaterally. Abdomen is soft, positive bowel sounds, obese. : Not inspected. She has a Michel catheter, clear yellow urine. Extremities: No pretibial edema, clubbing, or cyanosis. Integumentary: She has multiple areas of ecchymoses to the upper extremities. Her skin is very thin, warm and dry. LABORATORY DATA: WBC of 12.0, hemoglobin 7.6, hematocrit 24.1, and platelet count of 310,000. Sodium 138, potassium 3.8, chloride 106. CO2 of 20. BUN 17, creatinine 2.8. Calcium 8.4, phosphorus 4.0, albumin 2.1. ASSESSMENT AND PLAN: 1. Chronic kidney disease, stage 3B to 4. She remains at her baseline although she has had very mild increase in creatinine overnight. She has been in negative territory now for several days which may be affecting her creatinine level. Continue to monitor. No changes. 2. Fluid volume. Again, she remains in negative territory. 3. Electrolytes, acid-base balance. Her acid-based balance has improved with the addition of sodium bicarbonate. Continue to monitor. Seen, data reviewed, discussed with Efe Qiu on 03/02/17. I agree with the above assessment and plan of care. rg Dictated by WIL Almaguer for Pankaj Galindo MD cc: Pankaj Galindo MD [facility]
[2017-03-02 07:44] LABS: BANDS 4 % (0-1); LYMPHS 4 % (21-51); MONO 3 % (1-9)
--- NOTE | 2017-03-02 07:45 | PROGRESS NOTE ---
DATE: 03/02/2017 PRESENT ILLNESS: The patient is being treated for an oxacillin sensitive Staphylococcus aureus pneumonia and associated bacteremia. The also patient also has a probable Clostridium difficile diarrhea. The patient also has a isaiah perineal infection. MEDICATIONS: This is the 6th day of treatment with Ancef for her pneumonia and bacteremia. This is the 7th day of treatment with oral vancomycin for her probable Clostridium difficile diarrhea. This is day 4 of treatment with Lotrisone cream for the patient's perineal candidiasis. PHYSICAL EXAMINATION: Vital Signs: Temperature is 98.6 degrees, pulse 75, respirations 18, blood pressure 130/50. Lungs: Clear to auscultation. Cardiovascular: Heart rate is irregular but and in looking on the monitor, she is in sinus rhythm and has frequent PVCs. LAB AND X-RAY: Today, the patient's CBC shows a white count of 12,020, hemoglobin 7.6, and a platelet count 310,000. Creatinine is 2.8. GFR is 17. The patient's repeat blood cultures are sterile thus far. ASSESSMENT AND PLAN: I plan to continue Ancef for the patient's bacteremia and pneumonia, and oral vancomycin for the patient's probable Clostridium difficile diarrhea. I plan to try to complete a 2 week course of each of the medications for the patient's illness. Also, I plan to continue the Lotrisone cream for the patient's isaiah perineal infections as long as the patient is on antibiotics and for a few days thereafter. COMORBIDITIES: Include diabetes mellitus, chronic kidney disease, peripheral vascular disease, and gastroesophageal reflux disease. cc: Saravanan Torres MD
[2017-03-02] MEDS: LOFIBRA PO SCH (08:43)
[2017-03-02] MEDS: NORVASC PO SCH (08:43)
[2017-03-02] MEDS: PRINIVIL PO SCH (08:43)
[2017-03-02] MEDS: FOLIC ACID PO SCH (08:43)
[2017-03-02] MEDS: APRESOLINE PO SCH ×3 (08:43→20:43)
[2017-03-02] MEDS: LYRICA PO SCH ×2 (08:44→20:41)
[2017-03-02] MEDS: TOPROL XL PO SCH (08:44)
[2017-03-02] MEDS: MAG-OX PO SCH (08:45)
[2017-03-02] MEDS: HEPARIN SUBQ SCH ×2 (08:45→20:44)
[2017-03-02] MEDS: SODIUM BICARBONATE PO SCH ×2 (08:45→20:42)
[2017-03-02] MEDS: IMDUR PO SCH (08:45)
[2017-03-02] MEDS: LASIX IV SCH ×2 (08:46→20:43)
[2017-03-02] MEDS: LOTRISONE CREAM TOP SCH ×2 (08:46→20:42)
[2017-03-02] MEDS: KEFZOL 1 GM/D5W 1 GM/50 ML IVPB IV SCH ×2 (08:46→20:41)
[2017-03-02] MEDS: LANTUS SUBQ SCH (08:47)
[2017-03-02] MEDS ORDERED: INSULIN PEN NEEDLES ONE (08:55)
--- NOTE | 2017-03-02 10:37 | PROGRESS NOTE ---
DATE: 03/02/2017 SUBJECTIVE: Patient reports feeling better. Not requiring any oxygen supplementation. Denies any fever, chills. She is still feeling weakness. OBJECTIVE: Vital Signs: Temperature 98.8 degrees, heart rate 98, respiratory rate 18, blood pressure 126/55, O2 saturation 93% on room air. General examination: This a 71-year-old female, lying in bed in no acute distress. HEENT: Head is normocephalic, atraumatic. Anicteric sclerae and pale conjunctivae. Mucous membranes are moist. Neck: Supple. No JVD noted. No carotid bruits. No lymphadenopathy. No thyromegaly. Cardiovascular exam: S1, S2 heard. No murmurs, gallops, or rubs. Regular rate and rhythm. Respiratory exam: Decreased breath sounds in the right lower lung. Patient not using any accessory muscles or having work of breathing. Abdomen: Soft and nontender to palpation. Bowel sounds present. No organomegaly. Extremities: No clubbing, cyanosis, or edema. Peripheral pulses present in both legs. Neurological exam: Patient alert and oriented x3. Able to move 4 extremities. Cranial nerves 2- 12 grossly normal. LABORATORY DATA: White cell count 12.02, hemoglobin 7.6, hematocrit 24.1, platelets 310. BMP remarkable for creatinine 2.8. ASSESSMENT AND PLAN: 1. Diabetic ketoacidosis, resolved. 2. Sepsis secondary to left lower lobe pneumonia. Sepsis has resolved, and for pneumonia patient is on cefazolin intravenous as per Dr. Torres' recommendation. We will continue with the same management. He is planning to do 2 weeks of cefazolin. We will continue with the same management. 3. Clostridium difficile infection. Diarrhea has stopped. Patient is on vancomycin oral and Dr. Torres was on board and plan to continue this medication to complete 2 weeks of antibiotics. We will continue following his recommendations. 4. Yeast infection in the perineal area. We will continue with Lotrimin topical. 5. Hypothyroidism, aware. 6. Anemia of chronic disease, stable. 7. Uncontrolled diabetes mellitus. We will continue with Lantus and sliding scale insulin. 8. Physical deconditioning. Patient has become very weak, and we have talked with her and the family. They agreed to go to rehabilitation facility. matrix worker involved in the case. cc: George Turner MD
[2017-03-02] MEDS: NIASPAN PO SCH (20:42)
[2017-03-02] MEDS: LIPITOR PO SCH (20:43)
[2017-03-02] MEDS: PROTONIX IV SCH (20:43)
[2017-03-02] MEDS: SODIUM CHLORIDE 0.9% INJ SCH (20:44)
[2017-03-02] MEDS: AMBIEN PO PRN (20:49)
[2017-03-03] MEDS: HUMULIN R SUBQ SCH ×6 (00:50→22:24)
[2017-03-03] MEDS: VANCOMYCIN ORAL SOLN PO SCH ×4 (02:50→22:30)
[2017-03-03] MEDS: DUONEB (A & A) INH SCH ×6 (03:49→22:53)
[2017-03-03 07:39] LABS: BASO% 0.4 % (0.0-0.8); EOS# 0.15 X1000 (0.0-0.7); EOS% 1.3 % (0.0-10.0); HEMOGLOBIN 7.8 g/dL (12.0-16.0); IMM GRAN# 0.74 X1000 (0.0-0.04); IMM GRAN% 6.4 % (0.0-0.5); LYMPH# 1.63 X1000 (1.2-3.4); LYMPH% 14.2 % (20.5-51.1); MANUAL DIFF NEEDED? YES; MCH 29.7 PG (27-31); MCHC 31.2 g/dL (33-37); MCV 95.1 FL (81-99); MONO# 0.74 X1000 (0.11-0.59); MONO% 6.4 % (1.7-9.3); MPV 8.3 FL (7.4-10.4); NEUT% 71.3 % (42.2-75.2); PLT 333 X1000 (130-400); RBC 2.63 XMIL (4.2-5.4)
[2017-03-03 07:58] LABS: ALBUMIN 2.2 g/dL (3.5-5.0); CALCIUM 7.9 mg/dL (8.8-10.2); POTASSIUM 3.9 mmol/L (3.5-5.1)
[2017-03-03] MEDS: APRESOLINE PO SCH ×3 (08:05→22:21)
[2017-03-03] MEDS: NORVASC PO SCH (08:05)
[2017-03-03] MEDS: LOFIBRA PO SCH (08:05)
[2017-03-03] MEDS: TOPROL XL PO SCH (08:05)
[2017-03-03] MEDS: FOLIC ACID PO SCH (08:06)
[2017-03-03] MEDS: IMDUR PO SCH (08:06)
[2017-03-03] MEDS: LASIX IV SCH ×2 (08:06→22:23)
[2017-03-03] MEDS: LOTRISONE CREAM TOP SCH ×2 (08:06→22:24)
[2017-03-03] MEDS: LYRICA PO SCH ×2 (08:06→22:23)
[2017-03-03] MEDS: MAG-OX PO SCH (08:06)
[2017-03-03] MEDS: HEPARIN SUBQ SCH ×2 (08:06→22:22)
[2017-03-03] MEDS: PRINIVIL PO SCH (08:06)
[2017-03-03] MEDS: LANTUS SUBQ SCH (08:07)
[2017-03-03] MEDS: KEFZOL 1 GM/D5W 1 GM/50 ML IVPB IV SCH ×2 (08:07→22:23)
[2017-03-03] MEDS: SODIUM BICARBONATE PO SCH ×2 (08:13→22:22)
[2017-03-03] MEDS: SYNTHROID PO SCH (08:13)
[2017-03-03 08:16] LABS: BANDS 6 % (0-1); LYMPHS 12 % (21-51); MONO 6 % (1-9)
[2017-03-03 08:24] LABS: HYPOCHROM 1+
--- NOTE | 2017-03-03 10:02 | PROGRESS NOTE ---
DATE: 03/03/2017 SUBJECTIVE: She states she is feeling better. She has been up out of bed with therapy and she is eating. OBJECTIVE: Vital Signs: Blood pressure 140/37, heart rate 98, respirations 16, afebrile. Intake 650 mL. Output 3.9 L. PHYSICAL EXAMINATION: General: No acute distress. Skin: Warm and dry. Conjunctivae are pink. Heart: Regular, S4, without gallops. Lungs: Have equal breath sounds. No crackles. Abdomen: Soft, nontender. Bowel sounds present. Extremities: Have no edema, clubbing, or cyanosis. LABORATORY DATA: Sodium 139, potassium 3.9, chloride 105, bicarbonate 20, BUN 19, creatinine 2.7 hemoglobin 7.8. IMPRESSION: 1. Chronic kidney disease. Her creatinine is stable or improving. 2. Anemia. We will give IV iron. 3. Electrolytes in target. 4. Acid-base, moderate metabolic acidosis. cc: Pankaj Galindo MD
[2017-03-03] MEDS: VENOFER 200 MG in NS 150 ML IV SCH (13:00)
--- NOTE | 2017-03-03 14:04 | PROGRESS NOTE ---
DATE: 03/03/2017 PRESENT ILLNESS: The patient currently is being treated for an oxacillin-sensitive Staph aureus pneumonia with associated bacteremia, probable Clostridium difficile diarrhea, and Brianna perineal infection. MEDICATIONS: The patient has been on Ancef for the pneumonia and bacteremia for 7 days. It has also been 8 days that the patient has been on oral vancomycin for probable Clostridium difficile diarrhea. This is day 5 of treatment with Lotrisone cream for the patient's perineal candidiasis. PHYSICAL EXAMINATION: Vital Signs: Temperature is 97.4 degrees, pulse 90, respirations 18, blood pressure 160/60. General: This is a chronically ill-appearing, elderly female, who is in no acute distress. Lungs: Clear to auscultation. Cardiovascular: Regular heart rate with premature beats, most likely PVC's. Abdomen and flank: Soft and nontender. LAB AND X-RAY STUDIES: Lab for today shows a CBC with a white count of 11,490, hemoglobin 7.8 and platelet count 333,000. The patient's creatinine is 2.7. The GFR is 17. Blood cultures are sterile at 48 hours. There is no new radiographic study. ASSESSMENT AND PLAN: The patient is being treated for bacteremia pneumonia and vancomycin for the patient's probable Clostridium difficile diarrhea. This is day 7 of treatment with Ancef and day 8 treatment with oral vancomycin. Also, I plan to continue Lotrisone cream especially because the patient is continuing to get antibiotic therapy. This is the fifth day of treatment with Lotrisone cream to the perineal area. My plan is to continue treatment with intravenous Ancef oral for Clostridium difficile diarrhea and continued use of Lotrisone cream. COMORBIDITIES: The patient's comorbidities include diabetes mellitus, chronic kidney disease, peripheral vascular disease and gastroesophageal reflux disease. cc: Saravanan Torres MD
[2017-03-03] MEDS ORDERED: CALMOSEPTINE OINTMENT TOP PRN (14:11)
[2017-03-03 15:16] LABS: INR 1.31
[2017-03-03] MEDS ORDERED: NS 250 ML ONE (15:17)
--- NOTE | 2017-03-03 15:59 | PROGRESS NOTE ---
DATE: 03/03/2017 SUBJECTIVE: Patient reports feeling better. The patient reports being able to walk to the bathroom and also in the hallway. OBJECTIVE: Vital Signs: Temperature 97.4 degrees, heart rate 90, respiratory rate 18, blood pressure 160/60, O2 saturation 95% on room air. General Examination: This is a 71-year-old female lying in bed, in no acute distress. HEENT: Head is normocephalic, atraumatic. Anicteric sclerae and pale conjunctivae. Mucous membranes moist. Neck: Supple. No JVD noted. No carotid bruits. No lymphadenopathy. No thyromegaly. Cardiovascular: S1, S2 heard. No murmurs, gallops, or rubs. Regular rate and rhythm. Respiratory: Clear bilaterally to auscultation. No work of breathing or using accessory muscles. Abdomen: Soft, nontender to palpation. Bowel sounds present. No organomegaly. Extremities: No clubbing, cyanosis, or edema. Peripheral pulses present in both legs. Neurological: Patient alert, oriented x3. Able to move 4 extremities. Cranial nerves 2-12 grossly normal. LABORATORY DATA: Reviewed. ASSESSMENT AND PLAN: 1. Diabetic ketoacidosis. Resolved. 2. Sepsis secondary to left lower lobe pneumonia. The patient is being treated with cefazolin per Dr. Torres for a methicillin-sensitive Staphylococcus aureus. He recommends 2 weeks of antibiotics. The patient is doing fine, so I guess we can discharge her tomorrow. So a PICC line consult has been placed and the patient can be discharged tomorrow. 3. Clostridium difficile infection. Dr. Torres plans to keep this patient on vancomycin for a total of 2 weeks. Because we will plan to discharge this patient tomorrow a prescription has been written by him. 4. Yeast infection in the perineal area. We will continue with Lotrimin. 5. Hypothyroidism. Aware. 6. Anemia of chronic disease. Stable. 7. Uncontrolled diabetes mellitus. We will continue with Lantus and sliding scale insulin. 8. Physical deconditioning. Patient has been doing much better since she is working with Physical Therapy, so tomorrow we can send her home with home health. cc: George Turner MD
[2017-03-03] MEDS: NIASPAN PO SCH (22:21)
[2017-03-03] MEDS: LIPITOR PO SCH (22:22)
[2017-03-03] MEDS: SODIUM CHLORIDE 0.9% INJ SCH (22:23)
[2017-03-03] MEDS: PROTONIX IV SCH (22:23)
[2017-03-03] MEDS: ULTRAM PO PRN (22:39)
[2017-03-03] MEDS: AMBIEN PO PRN (22:40)
[2017-03-04] MEDS: HUMULIN R SUBQ SCH ×3 (01:00→14:04)
[2017-03-04] MEDS: CALMOSEPTINE OINTMENT TOP PRN (01:44)
[2017-03-04] MEDS: VANCOMYCIN ORAL SOLN PO SCH ×3 (03:06→14:05)
[2017-03-04] MEDS: DUONEB (A & A) INH SCH ×3 (03:52→11:21)
[2017-03-04 08:11] LABS: BASO% 0.6 % (0.0-0.8); EOS# 0.12 X1000 (0.0-0.7); HEMATOCRIT 23.5 % (37.0-47.0); HEMOGLOBIN 7.4 g/dL (12.0-16.0); IMM GRAN# 0.53 X1000 (0.0-0.04); IMM GRAN% 4.6 % (0.0-0.5); LYMPH# 1.66 X1000 (1.2-3.4); LYMPH% 14.3 % (20.5-51.1); MANUAL DIFF NEEDED? YES; MCH 29.8 PG (27-31); MCHC 31.5 g/dL (33-37); MCV 94.8 FL (81-99); MONO# 0.89 X1000 (0.11-0.59); MONO% 7.7 % (1.7-9.3); MPV 8.5 FL (7.4-10.4); NEUT% 71.8 % (42.2-75.2); PLT 331 X1000 (130-400); RBC 2.48 XMIL (4.2-5.4)
[2017-03-04 08:22] LABS: ALBUMIN 2.2 g/dL (3.5-5.0)
[2017-03-04 08:35] LABS: CALCIUM 7.9 mg/dL (8.8-10.2); POTASSIUM 3.6 mmol/L (3.5-5.1)
[2017-03-04] MEDS: TOPROL XL PO SCH (08:56)
[2017-03-04] MEDS: NORVASC PO SCH (08:56)
[2017-03-04] MEDS: KEFZOL 1 GM/D5W 1 GM/50 ML IVPB IV SCH (08:56)
[2017-03-04] MEDS: LOFIBRA PO SCH (08:57)
[2017-03-04] MEDS: IMDUR PO SCH (08:57)
[2017-03-04] MEDS: SODIUM BICARBONATE PO SCH (08:57)
[2017-03-04] MEDS: FOLIC ACID PO SCH (08:57)
[2017-03-04] MEDS: APRESOLINE PO SCH ×2 (08:57→14:05)
[2017-03-04] MEDS: PRINIVIL PO SCH (08:57)
[2017-03-04] MEDS: MAG-OX PO SCH (08:57)
[2017-03-04] MEDS: LYRICA PO SCH (08:57)
[2017-03-04] MEDS: LANTUS SUBQ SCH (08:58)
[2017-03-04] MEDS: LOTRISONE CREAM TOP SCH (08:59)
[2017-03-04] MEDS: HEPARIN SUBQ SCH (08:59)
[2017-03-04] MEDS: LASIX IV SCH (08:59)
[2017-03-04] MEDS ORDERED: NS 500 ML ONE (10:09)
[2017-03-04 11:20] LABS: BANDS 6 % (0-1); LYMPHS 20 % (21-51)
[2017-03-04] MEDS: VENOFER 200 MG in NS 150 ML IV SCH (12:42)
[2017-03-04 13:21] VITALS: BP 120/53
[2017-03-04] MEDS: ULTRAM PO PRN (15:19)
[2017-03-04] MEDS ORDERED: ICAR-C PO SCH (21:00)
--- NOTE | 2017-03-05 05:00 | DISCHARGE SUMMARY ---
ADMISSION DATE: 02/21/2017 DISCHARGE DATE: 03/04/2017 ADMISSION DIAGNOSES: 1. Diabetic ketoacidosis. 2. Sepsis. 3. Community-acquired pneumonia. 4. Acute on chronic kidney failure. 5. Metabolic encephalopathy. 6. Abdominal pain with nausea and vomiting. 7. Hypothyroidism. 8. Normocytic anemia. DISCHARGE DIAGNOSES: 1. Sepsis, which has resolved. 2. Left lower lobe pneumonia secondary to oxacillin-sensitive Staphylococcus aureus infection. 3. Oxacillin-sensitive Staphylococcus aureus bacteremia. 4. Clostridium difficile toxin infection. 5. Perineal isaiah infection. 6. Hypothyroidism. 7. Chronic anemia with iron deficiency anemia. 8. DKA (resolved)/Uncontrolled diabetes. 9. Physical deconditioning. 10. Protein calorie malnutrition. 11. Acute kidney injury on chronic kidney disease, resolved. Baseline is 2.1-3 , is now 2.7 upon discharge. 12. Abdominal pain, resolved. 13. Metabolic encephalopathy, resolved. CONSULTATIONS: Dr. Saravanan Torres with infectious disease, Dr. Galindo with nephrology. PROCEDURES: No surgeries. HOSPITAL COURSE: Ms. Rachael Blackburn is a 71-year-old, female with a history of uncontrolled diabetes, CKD stage III, hypothyroidism, and poor medical compliance who presented to the ER with the complaints of nausea and vomiting, and left upper quadrant pain for 3 days along with associated confusion. She does have a history of pancreatitis but this was ruled out. She was found to have DKA, encephalopathy, sepsis, with left lower lobe pneumonia. She was started on DKA protocol, azithromycin and Rocephin for the pneumonia. During her hospital stay, Dr. Torres was consulted. Her blood cultures that were obtained on 02/21/2017 were positive for MK. Her C. difficile sample obtained on 02/22/2017 was positive. Her anemia was found to have iron deficiency and her stool for blood was negative. Dr. Torres will continue her on IV Ancef 1 g every 12 hours for 2 weeks. He is going to continue her on oral vancomycin 250 mg every 6 hours for 2 weeks. She also had perineal isaiah which he will continue her on Lotrisone cream every 12 hours for [address] Galindo was consulted for LOIDA on chronic kidney disease stage III. She is at baseline. Here, she ran from 2.1-3. She is now 2.7 upon discharge. She will be continued on sodium bicarbonate supplementation. For her iron deficiency anemia, she received Venofer IV daily and will be sent home with Icar C twice daily. For her hypothyroidism, her Synthroid dose was increased from 150 mcg daily to 200 mcg daily. For her DKA, which is now resolved, she will go home with a sliding scale insulin, Lantus 80 units subcutaneous daily and Lantus 15 units subcutaneous nightly. During her 1st part of her admission, she was in the ICU secondary for her DKA. Once resolved, she was transferred to the floor. Her vital signs remained stable throughout her stay. She will go home with [facility] for her IV antibiotics, [facility]. She will have a walker with wheels and her PICC line for her antibiotic therapy. Day of discharge, hemoglobin and hematocrit were low at 7.4 and 23.5, and was transfused one unit of packed red blood cells. It was deemed appropriate that she could still go home due to stable vital signs. DISCHARGE VITAL SIGNS: Temperature is 98.3 degrees, heart rate 58, respiratory rate 18, blood pressure 143/52, O2 saturation is 94% on room air. DISCHARGE DIET: Diabetic. MEDICATIONS: Tylenol, albuterol/Atrovent nebulizers every 4 hours as needed, Norvasc 10 mg p.o. daily, Lipitor 40 mg p.o. nightly, Tessalon Perles 100 mg p.o. t.i.d. p.r.n., Lotrisone cream 1 application topical twice daily for 2 weeks, vitamin D 50,000 units subcutaneous every 7 days, Fenofibrate 160 mg p.o. daily, folic acid 1 mg p.o. daily, Lasix 40 mg p.o. daily, hydralazine 75 mg p.o. 3 times a day, NovoLog FlexPen per sliding scale insulin, Lantus 80 units subcutaneous daily and 15 units subcutaneous nightly, Icar 1 tablet p.o. twice daily, Imdur 30 mg p.o. daily, Synthroid 200 mcg p.o. daily, Prinivil, lisinopril 20 mg p.o. daily, magnesium oxide 400 mg p.o. daily, Calmoseptine topical as needed, Toprol-XL 50 mg p.o. daily, niacin 1000 mcg p.o. nightly, Prilosec 40 mg p.o. daily, potassium chloride 20 mEq p.o. daily, Lyrica 75 mg p.o. twice daily, sodium bicarbonate 650 mg p.o. twice daily, vancomycin 250 mg p.o. every 6 hours for 2 weeks, Ancef 1 g IV q.12 hours for 2 weeks, Ambien p.r.n. nightly, and Ultram p.r.n. for pain.. DISCHARGE LABORATORY DATA: White blood cells 11,000, hemoglobin 7.4, hematocrit 23.5, platelet count 331,000. Sodium 139, potassium 3.6, BUN 20, creatinine is 2.7 glucose 139 , albumin 2.2, calcium 7.9. IMAGING: Most recent chest x-ray was on 03/01/2017. The lungs were hyperexpanded, increased AP diameter, infiltrates in the left lower lung, and mild bilateral pleural effusions, and the interstitial markings are less pronounced on the current exam so improvement. Echocardiogram on 02/24/2017, estimated left ventricular ejection fraction was 60%, trace to mild tricuspid regurgitation. No aortic stenosis. No pericardial effusion. Abdominal and pelvic CT on 02/21/2017, tiny left pleural effusion, calcified mitral valve, stable hepatosplenomegaly, stable mild dilatation of the infrarenal abdominal aorta up to 3.4 cm, stable borderline retroperitoneal adenopathy, questionable chronic gastritis, no bowel obstruction, diverticulosis. Head CT on 02/21/2017, mild atrophic changes similar to prior, no visual acute process. On 02/21/2017, abdominal x-ray with left basilar pneumonia. DISCHARGE INSTRUCTIONS: Will go home with IV antibiotic therapy. Continue all new medications as prescribed. We will follow up with Dr. Torres and Dr. Galindo in the next 2 weeks. To return if symptoms reoccur. DISCHARGE DISPOSITION: Home with home health. It will be [facility] and [facility] for IV antibiotics. Dictated by WIL Johnson for George Turner MD cc: WIL Johnson MD Reginald D. Gladish, MD Leroy F. Harris, MD Marlin D. Gill, MD MTDD
--- NOTE | 2017-03-06 05:08 | PROGRESS NOTE ---
DATE: 03/03/2017 ADDENDUM: The patient has Staph aureus pneumonia and bacteremia. She also has probable Clostridium difficile diarrhea. She also has Brianna perineal dermatitis. The plan now is that the patient will go home tomorrow. Dr. Pineda has written for a PICC. I have consulted [facility] to supply the patient's antibiotic, namely Ancef 1 g IV every 12 hours for 2 weeks. The dose has been decreased because of the patient's end-stage renal disease. Also, I have written a prescription for vancomycin 250 mg tablets p.o. every 6 hours for 2 weeks and for Lotrisone cream to apply to the perineal area every 12 hours for 2 weeks. I will be seeing the patient back in my office in 2 weeks, at which time I will examine her and also repeat her chest x-ray to see if her pneumonia has cleared. cc: Saravanan Torres MD
== END 2017-03-04 15:24 | disposition home health service (06) ==
LOC: ED 11:30 → SUATTDRO 17:37 → 3S 17:37 → 3N 03-02 11:51
PROVIDERS: ATTEND Internal Medicine

== ENCOUNTER 2019-09-30 09:36 | Inpatient (IN) ==
[2019-09-30] MEDS ORDERED: ASPIRIN PO ONE (09:47)
--- NOTE | 2019-09-30 09:58 | EKG Report ---
Test Performed on : 09/30/2019 09:40:57 AM Test Reason : SOB Blood Pressure : / mmHG Vent. Rate : 074 BPM Atrial Rate : 074 BPM P-R Int : 174 ms QRS Dur : 156 ms QT Int : 452 ms P-R-T Axes : 058 070 -17 degrees QTc Int : 501 ms Normal sinus rhythm. Right bundle branch block Abnormal ECG When compared with ECG of 18-APR-2019 10:54, Nonspecific T wave abnormality now evident in Anterior leads Unconfirmed Result
--- NOTE | 2019-09-30 10:01 | PROVIDER DOCUMENTATION ---
HPI-General Adult - General Chief Complaint: Shortness of Breath Stated Complaint: SOB Time Seen by Provider: 09/30/19 09:49 Source: patient Allergies/Adverse Reactions: Patient Allergies Allergy/AdvReac Type Severity Reaction Status Date / Time Penicillins Allergy Intermediate HIVES Verified 09/30/19 11:17 niacin Allergy ITCHING Verified 09/30/19 11:17 shellfish derived Allergy SWELLING Verified 09/30/19 11:17 Home Medications: Home Medication List Medication Instructions Recorded Confirmed Last Taken Type ATORVAstatin [Lipitor] 40 mg PO HS 03/23/13 09/30/19 04/17/19 21:00 History Metoprolol Succinate [Toprol Xl] 50 mg PO QAM 06/01/16 09/30/19 04/17/19 09:30 History Ergocalciferol (Vitamin D2) 50,000 unit PO Q7D #12 capsule 06/05/16 09/30/19 04/14/19 Rx [Vitamin D] Folic Acid 1 mg PO DAILY #60 tablet 06/05/16 09/30/19 04/17/19 09:30 Rx Insulin Glargine [Lantus] 25 unit SUBQ HS 04/11/18 09/30/19 04/17/19 20:30 History Amlodipine [Norvasc] 10 mg PO DAILY #0 04/12/18 09/30/19 04/17/19 09:30 Rx Loratadine [Claritin] 10 mg PO DAILY 08/25/18 09/30/19 04/17/19 09:30 History Lipase/Protease/Amylase [Andrei Fan 12,000 units PO TID 08/26/18 09/30/19 04/17/19 09:30 History 12,000 Units Capsule] Allopurinol 100 mg PO BID 08/27/18 09/30/19 04/17/19 09:30 History Pantoprazole Sodium 40 mg PO DAILY 09/27/18 09/30/19 04/17/19 09:30 History Calcium Acetate 2 cap PO AC 04/16/19 09/30/19 04/17/19 09:30 History Clonidine [Catapres] 0.1 mg PO PRN PRN 04/16/19 09/30/19 3 Months Ago History ~01/16/19 Folic Acid/Vit B Complex and C 1 ea PO DAILY 0609/30/19 04/17/19 09:30 History [Dialyvite Tablet] Gabapentin 300 mg PO TID 04/16/19 09/30/19 04/17/19 09:30 History Hydralazine [Apresoline] 25 mg PO TID 04/16/19 09/30/19 04/17/19 09:30 History Insulin Humalog 75/25 [Humalog Mix 0 unit SUBQ PRN PRN 04/16/19 09/30/19 2 Weeks Ago History 75/25] ~04/04/19 Magnesium 250 mg PO DAILY 04/16/19 09/30/19 04/17/19 09:30 History Diphenoxylate/Atropine [Lomotil] 1 ea PO 4XDAY PRN PRN 09/30/19 09/30/19 Unknown History Hydrocodone/APAP 7.5 mg/325 mg 1 ea PO Q6H PRN PRN 09/30/19 09/30/19 Unknown History [[place]-7.5] Ibuprofen [Advil] 200 mg PO BID PRN 09/30/19 09/30/19 Unknown History Isosorbide Mononitrate E.r. [Imdur] 30 mg PO QAM 09/30/19 09/30/19 Unknown History Levothyroxine Sodium 100 mcg PO DAILY 09/30/19 09/30/19 Unknown History Ondansetron HCl [Zofran] 4 mg PO Q8H PRN 09/30/19 09/30/19 Unknown History Tramadol [Ultram] 50 mg PO Q6H PRN PRN 09/30/19 09/30/19 Unknown History Trazodone [Desyrel] 100 mg PO HS PRN PRN 09/30/19 09/30/19 Unknown History - History of Present Illness -Gen Adult Nature of Presenting Problems: 73yo presents with CC of shortness of breath. Patient has had URI for the last 2 weeks with recent acute worsening and shortness of breath. The patient is not on O2 at home. The patient is on dialysis monday, , and monday. The patient has not missed her dialysis appointments. The patient does not have hx of COPD or asthma. The patient denies fever, but has had a cough. The patient grant s not noted new LE swelling or hemoptysis. Location of Pain/Injury: reports: chest Pain Radiation: reports: no radiation Onset/Duration: reports: other (2 weeks) Timing: reports: still present, getting worse Associated Symptoms: reports: cough, shortness of breath. denies: fever/chills Review of Systems - Adult - REVIEW OF SYSTEMS - ADULT Constitutional: reports: fever Eyes: denies: eye pain Ears, Nose, Mouth & Throat: reports: throat pain Cardiovascular: reports: chest pain Respiratory: reports: cough, shortness of breath. denies: hemoptysis Gastrointestinal: denies: abdominal pain Genitourinary: denies: flank pain Musculoskeletal: denies: back pain Integumentary: denies: no symptoms reported Neurological: reports: no symptoms reported Psychiatric: reports: no symptoms reported Endocrine: reports: no symptoms reported Hematologic/Lymphatic: reports: no symptoms reported Allergic/Immunologic: reports: no symptoms reported Past History - Adult - PAST MEDICAL HISTORY-ADULT Review of Records: reports: Old Records Reviewed Major Childhood Illnesses: reports: denies history Cardiovascular: reports: HTN, hyperlipidemia Respiratory: reports: denies history, sleep apnea Gastrointestinal: reports: GERD Obstetrical/Gynecological: reports: denies history Genitourinary: reports: ESRD (on dialysis), kidney disease (CKD) Musculoskeletal: reports: arthritis, chronic pain Neurological: reports: denies history Psychiatric: reports: denies history Endocrine/Immune: reports: Diabetes, thyroid disorder (hypo) Other Conditions: reports: cataract/glaucoma - PRIOR SURGERIES/PROCEDURES Surgical/Procedure History: reports: colonoscopy, hysterectomy, , other (cataract removal) - IMMUNIZATION STATUS Childhood Immunizations: See Nurse Assessment Flu Vaccine: See Nurse Assessment - FAMILY HISTORY Family History: cancer (Lung) - SOCIAL HISTORY Smoking: denies Substance Use: none/never Alcohol Use Frequency: never Physical Exam-General - PHYSICAL EXAM-ADULT Initial Vital Signs Reviewed: Yes - CONSTITUTIONAL General Appearance: alert, mild distress, slow to respond - EYES Eyes: other (L pupil 3mm, and right pupil 2mm). negative: conjuctival exudate, photophobia, scleral icterus - HEAD, EARS, NOSE, MOUTH & THROAT HENMT: pharynx normal. negative: moist mucous membranes (dry), hearing deficit, pharyngeal erythema, tonsillar exudate - NECK Neck: non-tender, supple - RESPIRATORY Respiratory: decreased breath sounds, rales (bilaterally lower lobes) - CARDIOVASCULAR Cardiovascular: regular rate, rhythm, systolic murmur. negative: no edema ( trace bilateral lower extremity edema) - GASTROINTESTINAL (ABDOMEN) Abdominal Exam: non tender, soft - MUSCULOSKELETAL Extremity: non-tender (LE) - SKIN Integumentary: normal color, warm/dry - NEUROLOGIC Neurologic: grossly normal - PSYCHIATRIC Psych/Mental Status: normal mood/affect, normal thought content, normal thought process Progress - PLAN OF CARE/RESULTS Progress/Plan/Lab Results: Vital Signs - 8 hr 09/30/19 09:44 Temperature 97.9 F Pulse Rate 73 Respiratory Rate 20 Blood Pressure 168/77 O2 Sat by Pulse Oximetry 80 L Orders Category Date Time Status Cardiac Monitoring DIRECTED Care 09/30/19 09:47 Active Oxygen Therapy- ED Nursing DIRECTED Care 09/30/19 09:47 Active Saline Loc NOW Care 09/30/19 09:47 Active CHEST-2 VIEWS [RAD] Stat Exams 09/30/19 09:47 Ordered BLOOD CULTURE [BLDCUL] Stat Lab 09/30/19 10:00 Uncollected CBC WITH ELECTRONIC DIFF [HEME] Stat Lab 09/30/19 09:47 Uncollected CK PROFILE [SP CHEM] Stat Lab 09/30/19 09:47 Uncollected COMPREHENSIVE METABOLIC PANEL [CHEM] Stat Lab 09/30/19 09:47 Uncollected LACTATE, PLASMA [CHEM] Stat Lab 09/30/19 10:00 Uncollected PRO B-NATRIURETIC PEPTIDE Stat Lab 09/30/19 09:47 Uncollected PROTIME WITH INR [COAG] Stat Lab 09/30/19 09:47 Uncollected PTT [COAG] Stat Lab 09/30/19 09:47 Uncollected TROPONIN T Stat Lab 09/30/19 09:47 Uncollected Aspirin Med 09/30/19 09:47 Discontinued 325 mg PO NOW ONE CP/SOB/Palp >45 yrs of Age Stat Oth 09/30/19 09:47 Ordered EKG [EKG] Stat Ther 09/30/19 09:47 Draft Result Diagrams: 09/30/19 10:07 09/30/19 10:07 - REASSESSMENT Reassessment #1 Status: other (Discussed case with Dr. Galindo who reported that they would take care of her. Discussed with the hospitalist team who have accepted the patient.) - EKG 1 Time of EKG reading by physician:: 09:40 EKG Read and Signed by:: Tata Luis (Entered by Dr. Giordano) EKG Interpretation (*Must complete 3 of following elements*): Abnormal Rate: 74 Rhythm: sinus [place]: normal QRS: RBB AR Interval: normal ST Wave: non-specific ST changes Prior EKG Comparison: changes noted (new ST depression in II, otherwise no significant changes, RBBB noted previous) Departure - Departure Date of Disposition Decision: 09/30/19 Time of Disposition Decision: 11:41 DIAGNOSIS: Respiratory failure Qualifiers: Chronicity: acute Respiratory failure complication: hypoxia Qualified Code(s): J96.01 - Acute respiratory failure with hypoxia Volume overload Qualifiers: Hypervolemia type: unspecified Qualified Code(s): E87.70 - Fluid overload, unspecified Renal failure Qualifiers: Renal failure chronicity: chronic Chronic kidney disease stage: stage 5, not on chronic dialysis Qualified Code(s): N18.5 - Chronic kidney disease, stage 5 Disposition: ADMITTED INPATIENT 09 Certified Medical Emergency: Emergent Condition: Fair Referrals and Follow-Ups: Shannon Velásquez MD [Primary Care Provider] - - Critical Care Note This patient required my direct & personal management of CC.: No Attestation - Physician/ ALCIDES Attestation Patient care was provided by Advanced Practice Provider:: No The physician spent face to face time with patient:: Yes Advanced Practice Provider documentation review:: Supervising physician onsite and consulted in the evaluation and care of this patient. The physician did have a face to face encounter with the patient.
--- NOTE | 2019-09-30 10:31 | Diag Imaging Result Doc PS360 ---
EXAM: CHEST-2 VIEWS HISTORY: SOB TECHNIQUE: Two views 08/30/2018 COMPARISON: None. FINDINGS: The heart is enlarged and there is pulmonary edema on the current exam. Small pleural effusions, right greater than left. There are also infiltrates in the lung bases. Prominent atherosclerosis. IMPRESSION: Congestive failure. There may be underlying pneumonia as well. Electronically signed by Hansel Caldwell 09/30/2019 10:29 AM
[2019-09-30 10:35] LABS: INR 1.08; PROTIME 14.1 Seconds (11.0-16.0)
[2019-09-30 10:36] LABS: PTT 23.3 Seconds (22.3-41.8)
[2019-09-30 10:43] LABS: BASO# 0.05 X1000 (0.0-0.2); BASO% 0.9 % (0.0-0.8); EOS# 0.17 X1000 (0.0-0.7); EOS% 2.9 % (0.0-10.0); HEMATOCRIT 30.1 % (37.0-47.0); HEMOGLOBIN 9.6 g/dL (12.0-16.0); IMM GRAN# 0.04 X1000 (0.0-0.04); IMM GRAN% 0.7 % (0.0-0.5); LYMPH# 1.05 X1000 (1.2-3.4); LYMPH% 18.2 % (20.5-51.1); MCH 31.2 PG (27-31); MCHC 31.9 g/dL (33-37); MCV 97.7 FL (81-99); MONO# 0.45 X1000 (0.11-0.59); MONO% 7.8 % (1.7-9.3); MPV 8.7 FL (7.4-10.4); NEUT# 4.02 X1000 (1.4-6.5); NEUT% 69.5 % (42.2-75.2); PLT 168 X1000 (130-400); RBC 3.08 XMIL (4.2-5.4); RDW 15.3 % (11.5-14.5); WBC 5.78 X1000 (4.8-10.8)
[2019-09-30 10:51] LABS: ALB/GLOB RATIO 2.1; ALBUMIN 3.7 g/dL (3.5-5.0); CALCIUM 9.4 mg/dL (8.8-10.2); TOTAL BILIRUBIN 0.28 mg/dL (0.20-1.00); TOTAL PROTEIN 5.5 g/dL (6.3-8.3)
[2019-09-30 10:53] LABS: CREATININE 6.1 mg/dL (0.5-0.9)
[2019-09-30] MEDS ORDERED: HEPARIN IV PRN (11:31)
[2019-09-30] MEDS ORDERED: TIGHT: 0.2 ML/HR FOR DIALYSIS MISC PRN (11:31)
[2019-09-30] MEDS ORDERED: NS 2,000 ML MISC PRN (11:31)
[2019-09-30] MEDS ORDERED: APRESOLINE IV PRN (12:04)
[2019-09-30] MEDS: APRESOLINE PO SCH ×2 (12:20→17:16)
[2019-09-30] MEDS ORDERED: DESYREL PO PRN (12:40)
[2019-09-30] MEDS ORDERED: ZOFRAN IV PRN (12:40)
[2019-09-30] MEDS ORDERED: LOMOTIL PO PRN (12:40)
[2019-09-30] MEDS ORDERED: NORCO-7.5 PO PRN (12:40)
[2019-09-30] MEDS ORDERED: ULTRAM PO PRN (12:40)
[2019-09-30] MEDS: CREON PO SCH ×2 (14:03→17:15)
[2019-09-30] MEDS: NEURONTIN PO SCH ×2 (14:05→17:15)
[2019-09-30] MEDS: PHOSLO PO SCH (17:16)
[2019-09-30] MEDS: HUMALOG SUBQ SCH ×2 (17:20→22:05)
--- NOTE | 2019-09-30 17:48 | HISTORY AND PHYSICAL ---
PRIMARY CARE PROVIDER: Dr. Shannon Velásquez. PROCESSING OPERATOR: Dr. Galindo. CHIEF COMPLAINT: Shortness of breath. HISTORY OF PRESENT ILLNESS: Ms Blackburn is a 73-year-old female who carries a past medical history of end-stage renal disease, on hemodialysis Monday, Monday, Monday, who reports on Monday, she was not able to finish all of her hemodialysis secondary to having episodes of her chronic diarrhea, so she finished her treatment early. She reported that last night she started to have a cough and then throughout the night she started having increasing worsening shortness of breath. She came to the ED to be evaluated this morning. Her chest x-ray did show congestive heart failure and possible underlying pneumonia. Her proBNP was greater than 35,000. She has a normal white count. Her BUN was 27 and creatinine 6.1. The patient will be admitted to the hospital. She will undergo hemodialysis now under the direction of Dr. Galindo. We will continue her on her home medications. PAST MEDICAL HISTORY: 1. End-stage renal disease on hemodialysis Monday, Monday, Monday. 2. Hyperlipidemia. 3. Hypothyroidism. 4. Hypertension. 5. Gout. 6. Anemia. 7. Chronic diarrhea. 8. Diabetic neuropathy secondary to exocrine pancreatic insufficiency. PAST SURGICAL HISTORY: , hysterectomy, AV fistula per Dr. Rojas. SOCIAL HISTORY: She lives with a daughter. No alcohol. No to tobacco. ALLERGIES: To penicillin, shellfish, and niacin. HOME MEDICATIONS: As per MAR. REVIEW OF SYSTEMS: Completely negative except for those mentioned in HPI. PHYSICAL EXAMINATION: VITAL SIGNS: Temperature is 97.9 degrees, heart rate 73, respirations 20, blood pressure 168/77, O2 saturations upon presentation were 80, they are up into the 90s after administration of supplemental O2. GENERAL: Ms. Blackburn is a 73-year-old female who is lying on the stretcher in no acute distress. HEENT: Atraumatic, normocephalic. PERRL. NECK: Supple. Trachea midline. CARDIOVASCULAR: S1-S2 appreciated. No murmurs, gallops or rubs noted. I do not really appreciate any JVD. No real lower extremity edema. Positive murmur. RESPIRATORY: Decreased breath sounds bilaterally in the lower lobes. Some faint rales. NEUROLOGIC: No focal deficits noted. Patient was awake, alert, oriented and answered all questions appropriately. Followed all commands. DIAGNOSTIC DATA: Chest x-ray showed congestive heart failure, may be underlying pneumonia. LABORATORY DATA: White count 5, hemoglobin and hematocrit 9 and 30, platelet count 168,000. Sodium 143, potassium 4, BUN 27, creatinine 6.1, blood glucose 101. ProBNP was greater than 35,000. Plasma lactate 0.9. ASSESSMENT AND PLAN: 1. Acute respiratory failure with hypoxemia secondary to fluid volume overload, improved with supplemental oxygen. The patient will be going to hemodialysis. 2. Chronic kidney disease, stage 5, on hemodialysis. The patient reported on Monday she had 45 minutes left in her session, but had to leave early secondary to her chronic diarrhea. She is due for her regular scheduled hemodialysis today. That is being set up with Dr. Galindo now. 3. Hypertension. Continue home medications and as-needed medications. 4. Diabetes mellitus. Continue sliding scale patterned blood sugars and home regimen. 5. Hypothyroidism. Continue Synthroid. 6. Hyperlipidemia. Continue statin. 7. Gout. Continue home medication. 8. Chronic diarrhea. Continue Imodium. 9. Pancreatic insufficiency. Continue home medications. 10. Further recommendation to follow physician evaluation, laboratory and diagnostic data. Dictated by WIL Carr for George Turner MD Addendum: Patient seen and examined by myself. Agree with WIL note. It reflects my assessment and plan. Patient is being admitted to hospital for acute respiratory failure. Will provide dialysis while she is here and will see if that helps. Will continue with rest of home medications. cc: MD Pankaj Pisano MD Marlin D. Gill, MD MTDD
--- NOTE | 2019-09-30 19:42 | NEPHROLOGY CONSULTATION ---
DATE: 09/30/2019 REASON FOR ADMISSION: Increased work of breathing with left-sided chest discomfort . REASON FOR CONSULT: End-stage renal disease with assistance with medical management. HPI: Ms Blackburn is a 73-year-old white female who is known to our outpatient services for hemodialysis on Monday, Monday, Monday at the [facility]. The patient states that she has not missed any of her most recent treatments that for the last 1 to 2 days she has had increased work of breathing. She states that she has had an upper respiratory infection for approximately 2 weeks. No acute worsening. She continues with cough. Denies hemoptysis or fever or chills. No nausea or vomiting. No recent diarrhea. Appetite has been fair. No increased lower extremity swelling. PAST MEDICAL HISTORY: End-stage renal disease with hemodialysis on Monday, Monday, Monday at the [facility], hypertension, hyperlipidemia, GERD, arthritis pain, hypothyroidism, diabetes mellitus type 2, cataracts, glaucoma. PREVIOUS SURGERIES: Left upper arm AV fistula, colonoscopy, hysterectomy, section, bilateral cataracts. FAMILY HISTORY: Positive for lung cancer. SOCIAL HISTORY: She lives with her daughter. Denies any tobacco, alcohol or illicit drug use. ALLERGIES: Listed as penicillins, niacin and shellfish derived. HOME MEDICATIONS: Are listed as insulin, atorvastatin, calcium, fenofibrate, Synthroid, Creon, metoprolol, Niaspan, Prilosec, Zofran, trazodone, Elavil, Remeron, amlodipine, colchicine, gabapentin, hydralazine, Icar C, Imdur and losartan. REVIEW OF SYSTEMS: Times 10 with pertinent positives listed above in the HPI . CURRENT LABS: Sodium is 143, potassium 4, chloride 101, CO2 33, anion gap 9, BUN 27, creatinine 6.1, glucose 101, calcium 9.4, albumin 3.7, plasma lactate 0.9. BNP greater than 35,000. White count 5.78, hemoglobin 9.6, hematocrit 30.1 with a platelet count of 168,000. PT 14.1, INR 1.08, PTT 23.3.Vital Signs: The patient had a previous temperature 97.9 degrees, blood pressure 168/77, heart rate is 68, respirations are 14. She is currently on O2. PHYSICAL EXAM: This is a 73-year-old white female she is currently resting quietly in bed. She appears chronically ill, she is in no acute distress.Skin: Warm and dry. HEENT: Normocephalic, atraumatic. Conjunctiva is pale. She has SHAQ. Mucous membranes are dry. Neck: Supple. Trachea midline. No evidence of JVD in the side-lying position. Cardiovascular: Regular rate and rhythm. Systolic murmur is present. She has trace bilateral lower extremity edema. Lungs: Clear to auscultation bilateral. Equal excursion on O2. Abdomen: Large, round, soft, nontender. Positive bowel sounds. Genitourinary: Not inspected. Minimal void with dialysis assist. Extremities: Trace bilateral lower extremity edema. Pulses palpable. Integumentary: No rashes or lesions evident. Skin is warm and dry. Neurological: She is alert and oriented x3. Good historian. ASSESSMENT AND PLAN: 1. Chronic kidney disease stage 5D. The patient is due for her routine dialysis treatment today. We will place her on a 2 K bath. She is to dialyze for 3-1/2 hours. The patient is below her dry weight, though she appears to be in fluid volume overload. We will plan to pull 2 L of ultrafiltration as tolerated. 2. Electrolytes and acid-base balance with correction on dialysis. 3. Anemia. Hemoglobin of 9.6. We will monitor. 4. Increased work of breathing secondary to fluid volume overload. We will plan for dialysis today. We will plan to pull 2 L of ultrafiltration. We have discussed with Dr. Galindo in regards with adjusting her outpatient dry weight. Like to thank you for allowing us to follow with this patient. Dictated by WIL John for Pankaj Galindo MD cc: WIL John MD
[2019-09-30] MEDS: DUONEB (A & A) INH PRN (19:52)
[2019-09-30] MEDS: ZYLOPRIM PO SCH (22:04)
[2019-09-30] MEDS: LIPITOR PO SCH (22:04)
[2019-09-30] MEDS: LANTUS INSULIN SUBQ SCH (22:04)
[2019-10-01 05:31] LABS: BASO# 0.04 X1000 (0.0-0.2); BASO% 0.7 % (0.0-0.8); EOS# 0.23 X1000 (0.0-0.7); HEMATOCRIT 29.7 % (37.0-47.0); HEMOGLOBIN 9.4 g/dL (12.0-16.0); IMM GRAN# 0.02 X1000 (0.0-0.04); IMM GRAN% 0.3 % (0.0-0.5); LYMPH# 1.52 X1000 (1.2-3.4); LYMPH% 26.5 % (20.5-51.1); MCH 31.2 PG (27-31); MCHC 31.6 g/dL (33-37); MCV 98.7 FL (81-99); MONO# 0.43 X1000 (0.11-0.59); MONO% 7.5 % (1.7-9.3); MPV 8.6 FL (7.4-10.4); NEUT# 3.49 X1000 (1.4-6.5); PLT 173 X1000 (130-400); RBC 3.01 XMIL (4.2-5.4); RDW 15.4 % (11.5-14.5); WBC 5.73 X1000 (4.8-10.8)
[2019-10-01 05:56] LABS: ALBUMIN 3.6 g/dL (3.5-5.0); CALCIUM 9.1 mg/dL (8.8-10.2); CREATININE 4.6 mg/dL (0.5-0.9); MAGNESIUM 1.6 mg/dL (1.5-2.7); POTASSIUM 4.2 mmol/L (3.5-5.1); TOTAL BILIRUBIN 0.29 mg/dL (0.20-1.00); TOTAL PROTEIN 5.4 g/dL (6.3-8.3)
[2019-10-01] MEDS: SYNTHROID PO SCH (06:28)
[2019-10-01] MEDS: HUMALOG SUBQ SCH ×4 (06:29→21:18)
[2019-10-01] MEDS: PHOSLO PO SCH ×3 (06:29→16:54)
[2019-10-01] MEDS: PROTONIX PO SCH (06:29)
--- NOTE | 2019-10-01 06:58 | Diag Imaging Result Doc PS360 ---
EXAM: CHEST-PORTABLE 10/01/2019 HISTORY: follow up TECHNIQUE: AP portable at 0609 COMMENT: There is cardiomegaly increased pulmonary vascularity and interstitial and alveolar pulmonary edema. The latter has improved in the right base and portions of the hemidiaphragm are now visible which were not on the previous study of 09/30/2019. There is however a greater obscuration of the left heart border than on the previous study. IMPRESSION: Pulmonary edema cardiomegaly and increased pulmonary vascularity. Electronically signed by Paolo Celestin 10/01/2019 6:56 AM
[2019-10-01] MEDS: FOLIC ACID PO SCH (08:23)
[2019-10-01] MEDS: CREON PO SCH ×3 (08:23→16:55)
[2019-10-01] MEDS: TOPROL XL PO SCH (08:23)
[2019-10-01] MEDS: CLARITIN PO SCH (08:23)
[2019-10-01] MEDS: APRESOLINE PO SCH ×3 (08:23→16:55)
[2019-10-01] MEDS: IMDUR PO SCH (08:23)
[2019-10-01] MEDS: NEPHRO-VITE PO SCH (08:23)
[2019-10-01] MEDS: ZYLOPRIM PO SCH ×2 (08:24→21:17)
[2019-10-01] MEDS: MAG-OX PO SCH (08:24)
[2019-10-01] MEDS: NEURONTIN PO SCH ×3 (08:24→16:55)
[2019-10-01] MEDS: CATAPRES PO PRN (08:24)
[2019-10-01] MEDS: NORVASC PO SCH (08:40)
[2019-10-01] MEDS: DUONEB (A & A) INH PRN ×3 (09:30→16:19)
[2019-10-01] MEDS ORDERED: TIGHT: 0.2 ML/HR FOR DIALYSIS MISC PRN (09:39)
[2019-10-01] MEDS ORDERED: NS 2,000 ML MISC PRN (09:39)
[2019-10-01] MEDS ORDERED: HEPARIN IV PRN (09:39)
--- NOTE | 2019-10-01 12:55 | PROVIDER PROGRESS NOTE ---
Progress Note Subjective: voices feeling weak, a little better shortness of breath and less coughing. Objective: temperature 98.3, pulse 74, respirations 20, blood pressure 155/77, 02 sat 93% on 2 L nasal cannula. General: ill appearing Elderly white female sitting up,to the side of bed in no distress. HEENT: normocephalic, atraumatic, pupils equal and reactive, icteric sclera, trachea midline. Skin: warm and dry Neck: supple, JVD observed in upright position Cardiovascular: S1S2S3, regular rate and rhythm. Respiratory: clear upper lobes with scattered rhonchi to bases posteriorly. Abdomen: soft, obese, nontender, nondistended. Bowel sounds active : non inspected Extremities: no clubbing, cyanosis, or extremities. Left upper arm AV fistula. Neurological: alert and oriented to person, place, and time Labs: WBC 5.73, hemoglobin 9.4, hematocrit 29.7, platelet count 173, sodium 142, potassium 4.2, chloride 105, carbon dioxide 24, BUN 15, creatinine 4.6, intake zero, output 2000 per dialysis Impression: Chronic kidney disease stage 5D. She received her routine hemodialysis yesterday. She is still volume expanded and will need hemodialysis treatment again today. Anemia, electrolytes, acid-base acceptable.
--- NOTE | 2019-10-01 13:26 | PROGRESS NOTE ---
DATE: 10/01/2019 SUBJECTIVE: This patient is resting comfortably in bed. Actually, she was sleeping when I evaluated this patient. Her daughter is at the bedside. This patient is easily arousable, and she is answering all of my questions. She feels about the same compared with yesterday. She had a round of dialysis, and 2 L of fluid has been removed. X-ray today still shows pulmonary edema, cardiomegaly, and increased pulmonary vascularity. I will continue with the same management. I will continue with oxygen supplementation. Her blood pressure has been elevated. We will try to control that as well. OBJECTIVE: Vital Signs: Temperature 98.1 degrees, pulse 62, respiratory rate 22, blood pressure 108/69, oxygen saturation 92 on 2 L of nasal cannula. HEENT: Head normocephalic. No trauma. PERRLA. Neck: Supple. She does have some mild JVD. Central trachea. Chest: Coarse breath sounds bilaterally with bilateral crackles as well. Abdomen: Soft, nontender, nondistended. No hepatosplenomegaly. Extremities: No edema, no clubbing, no cyanosis. Neurological: The patient is sleepy, but arousable. She is oriented and following commands. LABORATORY DATA: WBC 5.7, hemoglobin 9.4, hematocrit 29.7, platelets 173,000. Sodium 142, potassium 4.2, chloride 105, bicarbonate 24, BUN 15, creatinine 4.6, glucose 87, calcium 9.1. ASSESSMENT AND PLAN: 1. Acute respiratory failure with hypoxemia secondary to fluid overload. There is a possibility of some underlying viral infection. Multiple family members at home had some flu-like symptoms. We will continue with the same management for now. Her oxygen has been more stable with oxygen supplementation. Continue with dialysis. 2. Chronic kidney disease stage 5, on hemodialysis Monday, Monday, and Monday. Continue with the same treatment. 3. Hypertension. I will continue with home medications. Her blood pressure has been elevated. I requested to give her a dose of clonidine today. 4. Diabetes. Continue sliding scale insulin and pattern of blood sugar. 5. Hypothyroidism. Continue with Synthroid. 6. Hyperlipidemia. Continue with statins. 7. Gout. Aware. 8. Chronic diarrhea. Continue with Imodium. 9. Pancreatic insufficiency. Continue with home medications. cc: Andres Castellanos MD
[2019-10-01] MEDS: LANTUS INSULIN SUBQ SCH (21:17)
[2019-10-01] MEDS: LIPITOR PO SCH (21:17)
[2019-10-02] MEDS: HUMALOG SUBQ SCH ×4 (06:10→20:44)
[2019-10-02 06:11] LABS: CALCIUM 9.5 mg/dL (8.8-10.2); CREATININE 3.8 mg/dL (0.5-0.9); POTASSIUM 4.2 mmol/L (3.5-5.1)
[2019-10-02] MEDS: PHOSLO PO SCH ×3 (06:11→17:15)
[2019-10-02] MEDS: SYNTHROID PO SCH (06:11)
[2019-10-02] MEDS: PROTONIX PO SCH (06:13)
[2019-10-02] MEDS ORDERED: NS 2,000 ML MISC PRN (06:13)
[2019-10-02] MEDS ORDERED: HEPARIN IV PRN (06:13)
[2019-10-02] MEDS ORDERED: TIGHT: 0.2 ML/HR FOR DIALYSIS MISC PRN (06:13)
[2019-10-02 06:54] LABS: HEMATOCRIT 28.9 % (37.0-47.0); HEMOGLOBIN 9.2 g/dL (12.0-16.0); MCH 31.7 PG (27-31); MCHC 31.8 g/dL (33-37); MCV 99.7 FL (81-99); MPV 8.5 FL (7.4-10.4); RBC 2.9 XMIL (4.2-5.4); RDW 15.6 % (11.5-14.5); WBC 4.92 X1000 (4.8-10.8)
[2019-10-02] MEDS: DUONEB (A & A) INH PRN ×3 (07:39→15:35)
--- NOTE | 2019-10-02 14:41 | Diag Imaging Result Doc PS360 ---
EXAM: US RENAL 2 (RETROPER) COMPLETE 10/02/2019 HISTORY: fluid volume shift with hemodialysis TECHNIQUE: Renal ultrasound COMMENT: There are multiple cysts in the right kidney. The kidneys are both hyperechoic. There is also a cyst in the anterior left renal cortex. There is no evidence of hydronephrosis. The urinary bladder is not distended. The right kidney is 10.2 x 4.7 x 4.1 cm the left is 10 x 4.6 x 4.9 cm. The bladder contains 40.6 mL. IMPRESSION: Medical renal disease. Electronically signed by Paolo Celestin 10/02/2019 2:39 PM
--- NOTE | 2019-10-02 15:01 | PROGRESS NOTE ---
DATE: 10/02/2019 SUBJECTIVE: This patient just finished dialysis at this moment, she is still in the dialysis unit. They removed around 2 L of fluid. She is completely awake and oriented x3. She sounds better. Some crepitus and mild crackles at the bases, she is not having any trouble breathing. Her blood pressure is still elevated though. OBJECTIVE: Vital Signs: Temperature 97.7 degrees, pulse 71, respiratory rate 16, blood pressure 189/64, oxygen saturation 97% on 2 L of nasal cannula. HEENT: Head normocephalic, no trauma, PERRLA. Neck: Supple. No JVD, today. Central trachea. Chest: Some crepitus and crackles scattered at the bases. Abdomen: Soft, nontender, nondistended. No hepatosplenomegaly. Extremities: No edema. No clubbing. No cyanosis. Neurological: The patient is completely awake, alert, and oriented x3 she is following commands. She does have some generalized weakness. LABORATORY: WBC 4.9, hemoglobin 9.2, hematocrit 28.9, platelets 156,000. Sodium 140, potassium 4.2, chloride 104, bicarbonate 25, BUN 16, creatinine 3.8, glucose 71, calcium 9.5. ASSESSMENT AND PLAN: 1. Acute respiratory failure with hypoxemia secondary to fluid overload, this is getting much better. There is a possibility of underlying viral infection due to multiple family members at home with flu-like symptoms. We will continue with same management for now. Her oxygen has been more stable. 2. Chronic kidney disease stage 5, on hemodialysis Monday, Monday, and Monday. Continue with the same management. So far, 8 L of fluid has been removed with dialysis and we have a negative balance of 7.5 L. 3. Hypertension. Continue home medication. Blood pressure has been elevated. 4. Diabetes. Continue sliding scale insulin and patterned blood sugars. 5. Hypothyroidism. Continue with Synthroid. 6. Hyperlipidemia. Continue with statins. 7. Gout. Aware. 8. Chronic diarrhea. Continue with Imodium as needed. 9. Pancreatic insufficiency. Continue with the same management. cc: Andres Castellanos MD
[2019-10-02] MEDS: CREON PO SCH ×3 (15:14→17:15)
[2019-10-02] MEDS: APRESOLINE PO SCH ×3 (15:15→17:15)
[2019-10-02] MEDS: NEURONTIN PO SCH ×3 (15:15→17:15)
--- NOTE | 2019-10-02 15:28 | Diag Imaging Result Doc PS360 ---
EXAM: CHEST-2 VIEWS 10/02/2019 HISTORY: reassess pulmonary edema. TECHNIQUE: PA and lateral chest COMMENT: There is what appears to be loculated pleural fluid in the posterior right hemithorax. There is increased interstitial markings generally. The heart size is slightly enlarged. The lungs are better expanded than on 10/01/2019. Compared to 09/30/2019 the pulmonary edema has improved but the pleural fluid collection on the right has increased in size. IMPRESSION: Improved pulmonary edema. Loculated pleural effusion on the right. Electronically signed by Paolo Celestin 10/02/2019 3:26 PM
[2019-10-02] MEDS: NORVASC PO SCH (15:30)
[2019-10-02] MEDS: TOPROL XL PO SCH (15:30)
[2019-10-02] MEDS: CLARITIN PO SCH (15:31)
[2019-10-02] MEDS: NEPHRO-VITE PO SCH (15:31)
[2019-10-02] MEDS: FOLIC ACID PO SCH (15:31)
[2019-10-02] MEDS: MAG-OX PO SCH (15:31)
[2019-10-02] MEDS: CATAPRES PO PRN (15:34)
[2019-10-02] MEDS: IMDUR PO SCH (15:37)
[2019-10-02] MEDS: ZYLOPRIM PO SCH ×2 (15:37→20:43)
[2019-10-02] MEDS: LIPITOR PO SCH (20:43)
[2019-10-02] MEDS: LANTUS INSULIN SUBQ SCH (20:44)
--- NOTE | 2019-10-02 21:33 | NEPHROLOGY PROGRESS NOTE ---
DATE: 10/02/2019 SUBJECTIVE: She is breathing better overall, though she is still requiring supplemental oxygen. OBJECTIVE: Vital Signs: Blood pressure 189/64, heart rate 71, respirations 16, afebrile. General: No acute distress. Skin: Warm and dry. Neck: Neck veins are not appreciated. Heart: Regular. No gallops. Lungs: Equal. Few scattered crackles. Abdomen: Soft, nontender. Bowel sounds present. Extremities: Trace edema only. No clubbing or cyanosis. IMPRESSION: Volume overload. Chest x-ray was repeated today after dialysis. We challenged her dry weight again. Chest x-ray has improved, though she does have a loculated pleural effusion on the right. She has received dialysis for 3 consecutive days. Electrolytes/acid base in target. Blood pressure is above target. We are waiting till her volume status is appropriate before we titrate her antihypertensive regimen. I will go ahead and add losartan. cc: Pankaj Galindo MD
--- NOTE | 2019-10-03 04:05 | ECHO REPORT ---
ORDER DATE: 10/02/2019 SUMMARY: 1. Adequate quality study. 2. Moderate sclerotic changes of trileaflet aortic valve demonstrated with mildly reduced aortic valve leaflet mobility. Peak gradient across aortic valve is 31 mmHg with a mean gradient of 15 mmHg. The calculated aortic valve area by Doppler is 1.1 to 1.2 cm2. Moderate aortic stenosis is suggested. Moderately severe mitral annular calcification is demonstrated extending into the posterior mitral leaflet which appears to be thickened and sclerotic with reduced mobility. The mitral valve area by pressure halftime method is 2.3 cm2. Mild mitral stenosis is suggested. 3. There is mild to moderate mitral regurgitation. Tricuspid valve is without evidence of structural abnormality while pulmonic valve was not well demonstrated. There is trace tricuspid regurgitation. Estimated systolic PA pressure by Doppler is 30 to 35 mmHg. The aortic root is normal in size. 4. Normal left ventricular chamber size with moderate concentric left ventricular hypertrophy is demonstrated. Estimated left ejection fraction appears to be at least 65%. No regional wall motion abnormality is evident. Left atrium is moderately enlarged. Right atrium and right ventricle are grossly normal in size with grossly preserved right ventricular systolic function. 5. No pericardial effusion. 6. Appearance of inferior vena cava suggests normal central venous pressure. cc: MD Sariah Juárez CRNP
[2019-10-03 05:29] LABS: HEMATOCRIT 29.9 % (37.0-47.0); HEMOGLOBIN 9.6 g/dL (12.0-16.0); MCH 31.9 PG (27-31); MCHC 32.1 g/dL (33-37); MCV 99.3 FL (81-99); MPV 8.8 FL (7.4-10.4); RBC 3.01 XMIL (4.2-5.4); RDW 15.9 % (11.5-14.5); WBC 4.9 X1000 (4.8-10.8)
[2019-10-03 05:43] LABS: CALCIUM 9.3 mg/dL (8.8-10.2); CREATININE 3.9 mg/dL (0.5-0.9); POTASSIUM 3.9 mmol/L (3.5-5.1)
[2019-10-03] MEDS: HUMALOG SUBQ SCH (06:20)
[2019-10-03] MEDS: PHOSLO PO SCH (06:21)
[2019-10-03] MEDS: SYNTHROID PO SCH (06:28)
[2019-10-03] MEDS: PROTONIX PO SCH (06:28)
[2019-10-03 08:14] VITALS: BP 160/51
[2019-10-03] MEDS ORDERED: COZAAR PO SCH (09:00)
[2019-10-03] MEDS ORDERED: NEURONTIN PO SCH (09:00)
[2019-10-03] MEDS: CREON PO SCH (09:20)
[2019-10-03] MEDS: NEPHRO-VITE PO SCH (09:21)
[2019-10-03] MEDS: NORVASC PO SCH (09:21)
[2019-10-03] MEDS: FOLIC ACID PO SCH (09:21)
[2019-10-03] MEDS: CLARITIN PO SCH (09:21)
[2019-10-03] MEDS: ZYLOPRIM PO SCH (09:21)
[2019-10-03] MEDS: MAG-OX PO SCH (09:21)
[2019-10-03] MEDS: APRESOLINE PO SCH (09:21)
[2019-10-03] MEDS: TOPROL XL PO SCH (09:21)
[2019-10-03] MEDS: IMDUR PO SCH (09:21)
--- NOTE | 2019-10-03 13:36 | PROVIDER PROGRESS NOTE ---
Progress Note Subjective: Pt voices not resting well, she takes trazadone at night at home. No other uremic complaints. Objective: temperature and 8.3, pulse 58, respirations 16, blood pressure 183/65, 02 sat 98% on 2 L nasal cannula. General: ill appearing Elderly white female lying in bed in no acute distress. HEENT: normocephalic, atraumatic, pupils equal and reactive, icteric sclera, trachea midline. Skin: warm and dry Neck: supple, JVD with hepatojugular reflux Cardiovascular: S1S2, regular rate and rhythm. Systolic murmur crescendo- decrescendo 2/6 left sternal border. Respiratory: clear anterior with equal air excursion. Abdomen: soft, obese, nontender, nondistended. Bowel sounds active : non inspected Extremities: no clubbing, edema, or cyanosis. Left upper arm AV fistula. Neurological: alert and oriented to person, place, and time Labs: Wbc 4.90, hemoglobin 9.6, hematocrit 29.9, platelet count 156, sodium 140, potassium 3.9, chloride 102, carbon tax at 28, are you in 14, creatinine 3.9. Intake 240, output 2000. Impression: Chronic kidney disease stage 5D. She received her routine hemodialysis yesterday. 2.7 liter output. Voices relief of shortness of breath. Blood pressure. Above target. Observe and treat as needed as an outpatient. Anemia. Low but stable. Does not mean transfusion criteria. Electrolytes and acid base balance. In target. Fluid volume. Expanded. Nutrition. Adequate. Ambulation. Up with assist. Medication review. Encourage decreasing the dose of gabapentin.
--- NOTE | 2019-10-04 14:03 | DISCHARGE SUMMARY ---
ADMISSION DATE: 09/30/2019 DISCHARGE DATE: 10/03/2019 DIAGNOSES: 1. Acute respiratory failure with hypoxemia secondary to fluid overload. 2. Chronic kidney disease stage 5 on Monday, Monday, Monday hemodialysis. 3. Hypertension. 4. Diabetes mellitus. 5. Hypothyroid. 6. Hyperlipidemia. 7. Gout. 8. Chronic diarrhea. 9. Pancreatic insufficiency. COMMISSARY WORKER: Dr. Pankaj Galindo. DIAGNOSTICS: 1. 09/30/2019 chest x-ray revealed congestive failure. There may be underlying pneumonia as well. 2. 10/01/2019, chest x-ray, pulmonary edema, cardiomegaly and increased pulmonary vascularity. 3. Echocardiogram revealed ejection fraction of 65% with moderate concentric left ventricular hypertrophy, no regional wall motion abnormality is evident. No pericardial effusion. 4. Renal ultrasound medical renal disease. 5. 10/02/2019 chest x-ray revealed improved pulmonary edema, loculated pleural effusion on the right. 6. Microbiology blood cultures x2 revealed no growth after 48 hours. HOSPITAL COURSE: Ms. Blackburn presented to the emergency room complaining of shortness of breath. She was found to be in acute hypoxemic respiratory failure secondary to volume overload. She was given supplemental oxygen. Dr. Galindo was consulted. She has received dialysis for 3 consecutive days with a negative cumulative output of 7140 mL. She feels she is breathing better overall. She has she feels she has improved greatly. We continued her home medications, added pattern blood glucose with sliding scale insulin. Blood sugars actually ranged between 70 and 160 while in the hospital. She does have chronic diarrhea for which we continued her Imodium discharge. DISCHARGE VITAL SIGNS: Blood pressure is 160/51 with a heart rate of 61, respirations are 16, temperature 98.2 degrees oral with O2 saturations 94 to 98 percent on 1 L nasal cannula. DISCHARGE PHYSICAL EXAMINATION: Cardiovascular: Regular rate and rhythm. S1 and S2 appreciated. She has trace pretibial edema. Calves are nontender bilateral with peripheral pulses palpable x4 extremities. Pulmonary: She does have some scattered crackles. Chest rises and falls symmetrically with respiration. Chest wall is nontender to palpation. Gastrointestinal: Abdomen is soft, nontender, nondistended with bowel sounds in all 4 quadrants. DISCHARGE MEDICATIONS: 1. Allopurinol 100 mg p.o. b.i.d. 2. Norvasc 10 mg p.o. daily. 3. Lipitor 40 mg p.o. at bedtime. 4. Calcium acetate 2 caps before meals. 5. Clonidine 0.1 p.r.n. as directed. 6. Lomotil one 4 times a day as needed for diarrhea. 7. Vitamin D2, 24194 units every 7 days. 8. Folic acid 1 mg p.o. daily. 9. Daily Stephanie tablet 1 p.o. daily. 10. Gabapentin 300 mg p.o. t.i.d. 11. Hydralazine 25 p.o. t.i.d. 12. [place] 7.5 one q. 6 hours p.r.n. pain. 13. Lantus insulin 25 units subcutaneous at bedtime. 14. Humalog 75/25 as directed. 15. Imdur 30 mg p.o. q.a.m. 16. Levothyroxine 100 mcg p.o. daily. 17. Creon capsule 1 p.o. t.i.d. 18. Claritin 10 mg p.o. daily. 19. Cozaar 50 mg p.o. daily. 20. Magnesium 250 p.o. daily. 21. Toprol-XL 50 mg p.o. daily. 22. Zofran 4 mg p.o. q. 8 hours p.r.n. 23. Pantoprazole 40 mg p.o. daily. 24. Ultram 50 mg q. 6 hours p.r.n. 25. Trazodone 100 mg at bedtime p.r.n. FOLLOW UP: 1. Dr. Galindo. She will continue with dialysis as scheduled. 2. Dr. Velásquez, her primary care provider. She needs to call in the morning to schedule an appointment to be seen in the next 1 to 2 weeks. 3. She has been instructed to call to be seen sooner or return to the ER for any syncope, dizziness, chest pain, palpitations, increasing shortness of breath, any temperature greater than 101, any nausea, vomiting, diarrhea, constipation, black or bloody vomitus or stools, hematuria, dysuria, frequency, urgency. She is being discharged home in stable condition with family members. TIME SPENT: This is a greater than 30 minute discharge. Dictated by WIL Shrestha for Andres Castellanos MD cc: WIL Shrestha MD
== END 2019-10-03 11:05 | disposition home or self-care (01) | DRG 640 ==
LOC: ED 09:36 → 1N 12:16 → SUATTDRO 12:16
PROVIDERS: ATTEND Internal Medicine

== ENCOUNTER 2019-12-18 08:59 | Inpatient (IN) ==
[2019-12-18] MEDS ORDERED: NS 500 ML IV ONE (09:20)
--- NOTE | 2019-12-18 09:29 | EKG Report ---
Test Performed on : 12/18/2019 09:29:43 AM Test Reason : weakness Blood Pressure : / mmHG Vent. Rate : 051 BPM Atrial Rate : 051 BPM P-R Int : 192 ms QRS Dur : 154 ms QT Int : 484 ms P-R-T Axes : 062 106 013 degrees QTc Int : 446 ms Sinus bradycardia. Possible Left atrial enlargement Right bundle branch block Septal infarct , age undetermined Abnormal ECG When compared with ECG of 30-SEP-2019 09:40, (Unconfirmed) Septal infarct is now present T wave inversion less evident in Inferior leads Nonspecific T wave abnormality no longer evident in Anterior leads QT has shortened Unconfirmed Result
--- NOTE | 2019-12-18 09:37 | Diag Imaging Result Doc PS360 ---
CHEST-PORTABLE - 12/18/2019 INDICATION: ams COMPARISON: 10/02/2019 FINDINGS: There is cardiomegaly and pulmonary vascular congestion. There is some hazy bibasilar interstitial infiltrate compatible with pulmonary edema. No large pleural effusion. IMPRESSION: Cardiomegaly. Interstitial pulmonary edema. Electronically signed by Rajeev Palomo 12/18/2019 9:35 AM
[2019-12-18 09:40] LABS: ALLEN TEST YES; BE -1.1 mmoll (-3.0-3.0); BLOOD TYPE ARTERIAL; METHB 0.3 % (0.0-1.5); O2(CT) 14.4 mL/dL (15.0-23.0); O2HB 94.3 % (95.0-99.0); PCO2(98.6) 38 mmHg (35-45); PO2(98.6) 83 mmHg (60-100); SAMPLE BLOOD; SAO2 94.7 % (95.0-100.0); THB 10.8 g/dL (11.5-17.4)
[2019-12-18 09:41] LABS: MODALITY CANNULA
[2019-12-18 09:53] LABS: BASO# 0.03 X1000 (0.0-0.2); BASO% 0.6 % (0.0-0.8); EOS# 0.31 X1000 (0.0-0.7); EOS% 6.7 % (0.0-10.0); HEMOGLOBIN 10.4 g/dL (12.0-16.0); LYMPH# 1.42 X1000 (1.2-3.4); LYMPH% 30.7 % (20.5-51.1); MCH 31.3 PG (27-31); MCHC 32.5 g/dL (33-37); MCV 96.4 FL (81-99); MONO# 0.31 X1000 (0.11-0.59); MONO% 6.7 % (1.7-9.3); MPV 8.8 FL (7.4-10.4); NEUT# 2.56 X1000 (1.4-6.5); NEUT% 55.3 % (42.2-75.2); PLT 150 X1000 (130-400); RBC 3.32 XMIL (4.2-5.4); RDW 13.8 % (11.5-14.5); WBC 4.63 X1000 (4.8-10.8)
--- NOTE | 2019-12-18 10:10 | Diag Imaging Result Doc PS360 ---
EXAM: CT HEAD W/O CONTRAST 12/18/2019 HISTORY: ams TECHNIQUE: This exam was performed using automated exposure control, adjustment of mA or kV according to patient size, and/or use of iterative reconstruction technique. COMMENT: There is no evidence of mass effect, bleed, or abnormal extra-axial fluid collection. The calvarium is intact. The visualized paranasal sinuses are clear. The appearance the brain has not changed significantly since 05/25/2018. IMPRESSION: No evidence of acute intracranial disease. Electronically signed by Paolo Celestin 12/18/2019 10:07 AM
[2019-12-18 10:32] LABS: INR 1.13; PROTIME 14.7 Seconds (11.0-16.0)
[2019-12-18 10:45] LABS: PTT 32.3 Seconds (22.3-41.8)
[2019-12-18 10:56] LABS: ALB/GLOB RATIO 2.2; ALBUMIN 3.7 g/dL (3.5-5.0); CREATININE 9.8 mg/dL (0.5-0.9); MAGNESIUM 1.5 mg/dL (1.5-2.7); PHOSPHORUS 4.5 mg/dL (2.7-4.5); TOTAL BILIRUBIN 0.32 mg/dL (0.20-1.00); TOTAL PROTEIN 5.4 g/dL (6.3-8.3)
[2019-12-18 10:57] LABS: POTASSIUM 7.7 mmol/L (3.5-5.1)
[2019-12-18] MEDS ORDERED: D50W SYRINGE IV ONE (10:58)
[2019-12-18] MEDS ORDERED: ALBUTEROL NEB INH ONE (10:58)
[2019-12-18] MEDS ORDERED: HUMULIN R IV ONE (10:58)
[2019-12-18] MEDS ORDERED: KAYEXALATE PO ONE (10:59)
[2019-12-18] MEDS ORDERED: LASIX IV ONE (10:59)
[2019-12-18] MEDS ORDERED: CALCIUM CHLORIDE SYRINGE IV ONE (10:59)
[2019-12-18] MEDS ORDERED: SODIUM BICARBONATE 8.4% IV ONE (10:59)
--- NOTE | 2019-12-18 11:06 | PROVIDER DOCUMENTATION ---
This chart was entered by Aylin Flanagan Scribe, acting as scribe for Marco Antonio Mancera MD. HPI-Abdominal Pain/GI Problem - General Chief Complaint: General Adult Stated Complaint: diarrhea Time Seen by Provider: 12/18/19 09:15 Source: patient, family (daughter) Allergies/Adverse Reactions: Patient Allergies Allergy/AdvReac Type Severity Reaction Status Date / Time Penicillins Allergy Intermediate HIVES Verified 09/30/19 11:17 niacin Allergy ITCHING Verified 09/30/19 11:17 shellfish derived Allergy SWELLING Verified 09/30/19 11:17 Home Medications: Home Medication List Medication Instructions Recorded Confirmed Last Taken Type ATORVAstatin [Lipitor] 40 mg PO HS 03/23/13 09/30/19 04/17/19 21:00 History Metoprolol Succinate [Toprol Xl] 50 mg PO QAM 06/01/16 09/30/19 04/17/19 09:30 History Ergocalciferol (Vitamin D2) 50,000 unit PO Q7D #12 capsule 06/05/16 09/30/19 04/14/19 Rx [Vitamin D] Folic Acid 1 mg PO DAILY #60 tablet 06/05/16 09/30/19 04/17/19 09:30 Rx Insulin Glargine [Lantus] 25 unit SUBQ HS 04/11/18 09/30/19 04/17/19 20:30 History Amlodipine [Norvasc] 10 mg PO DAILY #0 04/12/18 09/30/19 04/17/19 09:30 Rx Loratadine [Claritin] 10 mg PO DAILY 08/25/18 09/30/19 04/17/19 09:30 History Lipase/Protease/Amylase [Creon Dr 12,000 units PO TID 08/26/18 09/30/19 04/17/19 09:30 History 12,000 Units Capsule] Allopurinol 100 mg PO BID 08/27/18 09/30/19 04/17/19 09:30 History Pantoprazole Sodium 40 mg PO DAILY 09/27/18 09/30/19 04/17/19 09:30 History Calcium Acetate 2 cap PO AC 04/16/19 09/30/19 04/17/19 09:30 History Clonidine [Catapres] 0.1 mg PO PRN PRN 04/16/19 09/30/19 3 Months Ago History ~01/16/19 Folic Acid/Vit B Complex and C 1 ea PO DAILY 04/16/19 09/30/19 04/17/19 09:30 History [Dialyvite Tablet] Gabapentin 300 mg PO TID 04/16/19 09/30/19 04/17/19 09:30 History Hydralazine [Apresoline] 25 mg PO TID 04/16/19 09/30/19 04/17/19 09:30 History Insulin Humalog 75/25 [Humalog Mix 0 unit SUBQ PRN PRN 04/16/19 09/30/19 2 Weeks Ago History 75/25] ~04/04/19 Magnesium 250 mg PO DAILY 04/16/19 09/30/19 04/17/19 09:30 History Diphenoxylate/Atropine [Lomotil] 1 ea PO 4XDAY PRN PRN 09/30/19 09/30/19 Unknown History Hydrocodone/APAP 7.5 mg/325 mg 1 ea PO Q6H PRN PRN 09/30/19 09/30/19 Unknown History [[place]-7.5] Isosorbide Mononitrate E.r. [Imdur] 30 mg PO QAM 09/30/19 09/30/19 Unknown History Levothyroxine Sodium 100 mcg PO DAILY 09/30/19 09/30/19 Unknown History Ondansetron HCl [Zofran] 4 mg PO Q8H PRN 09/30/19 09/30/19 Unknown History Tramadol [Ultram] 50 mg PO Q6H PRN PRN 09/30/19 09/30/19 Unknown History Trazodone [Desyrel] 100 mg PO HS PRN PRN 09/30/19 09/30/19 Unknown History Losartan [Cozaar] 50 mg PO DAILY #90 tab 10/03/19 Unknown Rx - History of Present Illness-ABD Nature of Presenting Problems: 74yof presents to ED cc intermittent diarrhea for 1wk. Pt reports she has chronic diarrhea and if it goes more than a day she gets very lethargic and can't go to dialysis. Pt reports she missed dialysis Monday due to the diarrhea and wasn't able to go today so she came to ED. Pt took Lomotil at home yesterday and it helped for a while but started back today. Pt daughter reports pt is very lethargic and dehydrated today. Pt has hx of ESRD and has dialysis M/W/F. Severity in ED: reports: moderate Onset/Duration: reports: 1 week ago Timing: reports: still present, intermittent Modifying Factors: worse with: defecating Associated Symptoms: reports: diarrhea, fatigue, weakness Last BM: this morning Similar Symptoms Previously?: Yes Recently seen or treated by another doctor?: No Review of Systems - Adult - REVIEW OF SYSTEMS - ADULT Constitutional: reports: see HPI, fatique. denies: chills, fever Eyes: reports: no symptoms reported Ears, Nose, Mouth & Throat: reports: see HPI, other (dehydrated) Cardiovascular: reports: no symptoms reported Respiratory: reports: no symptoms reported Gastrointestinal: reports: see HPI, diarrhea. denies: vomiting Genitourinary: reports: no symptoms reported Musculoskeletal: reports: no symptoms reported Integumentary: reports: no symptoms reported Neurological: reports: no symptoms reported Psychiatric: reports: no symptoms reported Endocrine: reports: no symptoms reported Hematologic/Lymphatic: reports: no symptoms reported Allergic/Immunologic: reports: no symptoms reported All Other Systems: Reviewed and Negative Past History - Adult - PAST MEDICAL HISTORY-ADULT Review of Records: reports: Old Records Reviewed, Nursing Assessment Review, Medications Reviewed, Social history reviewed & non-contributory. Major Childhood Illnesses: reports: denies history Cardiovascular: reports: HTN, hyperlipidemia Respiratory: reports: denies history, sleep apnea Gastrointestinal: reports: GERD Obstetrical/Gynecological: reports: denies history Genitourinary: reports: ESRD (on dialysis), kidney disease (CKD) Musculoskeletal: reports: arthritis, chronic pain Neurological: reports: denies history Psychiatric: reports: denies history Endocrine/Immune: reports: Diabetes, thyroid disorder (hypo) Other Conditions: reports: cataract/glaucoma - PRIOR SURGERIES/PROCEDURES Surgical/Procedure History: reports: colonoscopy, hysterectomy, , other (cataract removal) - IMMUNIZATION STATUS Childhood Immunizations: See Nurse Assessment Flu Vaccine: See Nurse Assessment - FAMILY HISTORY Family History: cancer (Lung) Physical Exam-General - PHYSICAL EXAM-ADULT Initial Vital Signs Reviewed: Yes - CONSTITUTIONAL General Appearance: alert, no apparent distress. negative: anxious, combative - EYES Eyes: PERRL/EOMI, pink conjunctivae. negative: photophobia - HEAD, EARS, NOSE, MOUTH & THROAT HENMT: normocephalic/atraumatic. negative: moist mucous membranes (dry and pale), angioedema - NECK Neck: supple - RESPIRATORY Respiratory: chest non-tender, lungs clear, normal breath sounds. negative: wheezing - CARDIOVASCULAR Cardiovascular: normal peripheral pulses, regular rate, rhythm, no edema. negative: bradycardia, tachycardia - GASTROINTESTINAL (ABDOMEN) Abdominal Exam: normal bowel sounds, non tender, soft. negative: rebound - MUSCULOSKELETAL Extremity: normal inspection, normal capillary refill. negative: deformity - SKIN Integumentary: warm/dry (dry), other (shunt in left bicep with good thrill). negative: normal color (pale), normal turgor, diaphoresis, jaundice - PSYCHIATRIC Psych/Mental Status: normal mood/affect, oriented x 3. negative: anxious, disheveled Progress - PLAN OF CARE/RESULTS Progress/Plan/Lab Results: Vital Signs - 8 hr 12/18/19 09:32 Temperature 97.8 F Pulse Rate 52 L Respiratory Rate 14 Blood Pressure 227/74 O2 Sat by Pulse Oximetry 93 L Laboratory Results - last 24 hr 12/18/19 12/18/19 12/18/19 09:20 09:30 09:30 WBC RBC Hgb Hct MCV MCH MCHC RDW Std Deviation Plt Count MPV Immature Gran % (Auto) Neut % (Auto) Lymph % (Auto) [place] % (Auto) Eos % (Auto) Baso % (Auto) Immature Gran # (Auto) Neut # (Auto) Lymph # (Auto) [place] # (Auto) Eos # (Auto) Baso # (Auto) Specimen Type ARTERIAL Sample Site R RADIAL pH 7.40 pCO2 38 pO2 83 HCO3 24.0 Base Excess -1.1 Oxyhemoglobin 94.3 L ABG O2 Sat (Calculated) 14.4 L ABG O2 Saturation 94.7 L ABG Carboxyhemoglobin 0.00 L ABG Methemoglobin 0.3 Bhavesh Test YES A-a O2 Difference 69.0 Total Hemoglobin 10.8 L Lactate 0.80 Liter Flow 2.0 Blood Gas Modality [place] FiO2 % 28.0 Plasma Lactate 0.8 Acetone Level NEGATIVE 12/18/19 09:30 WBC 4.63 L RBC 3.32 L Hgb 10.4 L Hct 32.0 L MCV 96.4 MCH 31.3 H MCHC 32.5 L RDW Std Deviation 13.8 Plt Count 150 MPV 8.8 Immature Gran % (Auto) 0.0 Neut % (Auto) 55.3 Lymph % (Auto) 30.7 [place] % (Auto) 6.7 Eos % (Auto) 6.7 Baso % (Auto) 0.6 Immature Gran # (Auto) 0.00 Neut # (Auto) 2.56 Lymph # (Auto) 1.42 [place] # (Auto) 0.31 Eos # (Auto) 0.31 Baso # (Auto) 0.03 Specimen Type Sample Site pH pCO2 pO2 HCO3 Base Excess Oxyhemoglobin ABG O2 Sat (Calculated) ABG O2 Saturation ABG Carboxyhemoglobin ABG Methemoglobin Bhavesh Test A-a O2 Difference Total Hemoglobin Lactate Liter Flow Blood Gas Modality FiO2 % Plasma Lactate Acetone Level Orders Category Date Time Status Finger Stick Blood Sugar (ED) DIRECTED Care 12/18/19 09:20 Active Nursing- Obtain EKG once Care 12/18/19 09:20 Active Saline Loc NOW Care 12/18/19 09:20 Active CHEST-PORTABLE [RAD] Stat Exams 12/18/19 09:[address] HEAD W/O CONTRAST [CT] Stat Exams 12/18/19 09:22 Completed ABG [RESP] Routine Lab 12/18/19 09:30 Completed ACETONE SERUM [CHEM] Stat Lab 12/18/19 09:20 Completed AMYLASE [CHEM] Stat Lab 12/18/19 09:30 Received BLOOD CULTURE [BLDCUL] Stat Lab 12/18/19 09:21 Ordered CBC WITH ELECTRONIC DIFF [HEME] Stat Lab 12/18/19 09:30 Completed COMPREHENSIVE METABOLIC PANEL [CHEM] Stat Lab 12/18/19 09:30 Received LACTATE, PLASMA [CHEM] Stat Lab 12/18/19 09:30 Completed MAGNESIUM [CHEM] Stat Lab 12/18/19 09:30 Received PRO B-NATRIURETIC PEPTIDE Stat Lab 12/18/19 09:30 Received PROTIME WITH INR [COAG] Stat Lab 12/18/19 09:30 Received PTT [COAG] Stat Lab 12/18/19 09:30 Received TROPONIN T HIGH SENSITIVITY Stat Lab 12/18/19 09:30 Received TSH Stat Lab 12/18/19 09:22 Ordered phos [PHOSPHORUS] [CHEM] Stat Lab 12/18/19 09:30 Received 0.9% Sodium Chloride Inj [Ns] 500 ml Med 12/18/19 09:20 Discontinued IV 999 mls/hr EKG [EKG] Stat Ther 12/18/19 09:20 Draft Result Diagrams: 12/18/19 09:30 12/18/19 09:30 - REASSESSMENT Reassessment #1 Time Reassessed: 11:01 Status: improving (Given IVF bolus 500ml, then hyperkalemia treated with high dose albuterol neb, kayexalate po, Insulin/D50, Sodium Bicarb/lasix, Calcium Chloride. Will need emergent dialysis this am) - EKG 1 Time of EKG reading by physician:: 09:40 EKG Read and Signed by:: Marco Antonio Mancera EKG Interpretation (*Must complete 3 of following elements*): Abnormal Rate: 51 Rhythm: Sinus quinton [place]: normal QRS: RBB (wide complex, typical of hyperkalemia with peak T-waves) AL Interval: prolonged ST Wave: non-specific ST changes - XRAY 1 XRAY: Bilateral XRAY Study: Chest Impression: See EMR Report (MPRESSION: Cardiomegaly. Interstitial pulmonary edema. Electronically signed by Rajeev Palomo 12/18/2019 9:35 AM) - CT/MRI 1 CT Study: Head Impression: See EMR Report (IMPRESSION: No evidence of acute intracranial disease. Electronically signed by Paolo Celestin 12/18/2019 10:07 AM) - CONSULTS/PCP/HOSPITALIST Notification #1 *Consult/PCP/Hospitalist*: Mateo paged at 1100 Consult Disposition: Admit, other #2 Consult: Meryl DE LA TORRE paged at 1100 Time Discussed: 11:05 Consult Disposition: Will see in ED, Admit Departure - Departure Date of Disposition Decision: 12/18/19 Time of Disposition Decision: 11:05 DIAGNOSIS: Acute hyperkalemia, ESRD on hemodialysis, Diarrhea due to malabsorption Altered mental status Qualifiers: Altered mental status type: somnolence Qualified Code(s): R40.0 - Somnolence Disposition: ADMITTED INPATIENT 09 Certified Medical Emergency: Emergent Condition: Stable Referrals and Follow-Ups: Shannon Velásquez MD [Primary Care Provider] - - Critical Care Note This patient required my direct & personal management of CC.: Yes Total Time (mins): 45 Critical Care Statement: This patient required my direct personal management to treat or rule out processes, the absence of which, could potentiallly result in sudden, clinically significant life or limb threatening deterioration. Attestation - Physician/ ALCIDES Attestation Patient care was provided by Advanced Practice Provider:: No The physician spent face to face time with patient:: Yes Advanced Practice Provider documentation review:: Supervising physician onsite and consulted in the evaluation and care of this patient. The physician did have a face to face encounter with the patient. This chart was documented by the indicated scribe, (Aylni Flanagan Scribe) and accurately reflects the services I performed and decisions made by me, Marco Antonio Mancera MD, as attested by the provider's signature.
[2019-12-18] MEDS ORDERED: HEPARIN IV PRN (11:19)
[2019-12-18] MEDS ORDERED: TIGHT: 0.2 ML/HR FOR DIALYSIS MISC PRN (11:19)
[2019-12-18] MEDS ORDERED: NS 2,000 ML MISC PRN (11:19)
[2019-12-18] MEDS ORDERED: ZOFRAN IV PRN (11:50)
--- NOTE | 2019-12-18 12:40 | HISTORY AND PHYSICAL ---
PRIMARY CARE PROVIDER: Dr. Shannon Velásquez. MEDICAL OFFICER: Dr. Galindo. REASON FOR ADMISSION: Diarrhea and weakness. HISTORY OF PRESENT ILLNESS: Ms. Rachael Blackburn is a 74-year-old, female with a medical history of end-stage renal disease, who receives dialysis Monday, Monday, Monday. She also has a history of chronic diarrhea. Apparently, she started having diarrhea over the weekend. She took some Imodium, and the diarrhea resolved on Monday, but she went ahead and skipped dialysis Monday as she felt too bad to go. She was a little weak on Monday, and then today, her daughter tried to get her up to hopefully take her to the clinic for her dialysis treatment, but she was just too weak to get her up out of the bed, so she presents here. Potassium 7.7. She is bradycardic, hypertensive, and Dr. Galindo has been consulted. She is going to go for dialysis today. She was also treated with medications to bring her potassium level down. She has only had 2 loose stools today. PAST MEDICAL HISTORY: 1. End-stage renal disease, dialysis Monday, Monday, Monday. 2. Hyperlipidemia. 3. Hypothyroidism. 4. Hypertension. 5. Gout. 6. Anemia. 7. Chronic diarrhea. 8. Diabetic neuropathy secondary to exocrine pancreatic insufficiency. PAST SURGICAL HISTORY: 1. section. 2. Hysterectomy. 3. AV fistula by Dr. Rojas. SOCIAL HISTORY: Denies tobacco, alcohol, or illicit drug use. She lives with her daughter. FAMILY HISTORY: Denies. ALLERGIES: Penicillin, shellfish, and niacin. HOME MEDICATIONS: Have not been reconciled. REVIEW OF SYSTEMS: A 14-point review of systems was complete, and all were negative, except for those mentioned in the above HPI. She is somewhat confused, in addition to being weak from missing dialysis. PHYSICAL EXAMINATION: VITAL SIGNS: Temperature 97.8 degrees, heart rate 52, respiratory rate 14, blood pressure 227/74, O2 saturation 93% on room air. She is 5 feet 4 inches tall, 170 pounds, BMI is 29.2. GENERAL: Ms. Rachael Blackburn is a 74-year-old, female. She is in no acute distress. She is able to answer questions appropriately. HEENT: Atraumatic, normocephalic. Pupils equal, round, reactive to light. Extraocular movements intact. Mucous membranes moist. NECK: Trachea midline. CARDIOVASCULAR: S1, S2. Bradycardic rate and rhythm. No rubs, gallops, murmurs. No lower extremity edema. There are +2 dorsalis and radial pulses. Negative JVD or carotid bruits. PULMONARY: Clear to auscultation. Bilateral breath sounds. No accessory muscle use or work of breathing noted. GI: Soft, mildly tender with palpation in the lower quadrants. Positive bowel sounds. EXTREMITIES: Moves all extremities equally. Decreased range of motion. NEUROLOGIC: A and O x2. Follows commands. Sensory is intact. Decreased sensory in the lower extremities. SKIN: Warm, dry, intact. LABORATORY DATA: White blood cells 4000, hemoglobin 10, hematocrit 32, platelet count 150,000. INR is 1.13. PH 7.40, pCO2 of 38, PO2 of 83, bicarb 24, base excess -1, saturation 94%, lactate 0.8, and that was on 2 L nasal cannula. Sodium 134, potassium 7.7, BUN 77, creatinine is 9.8, glucose 97, calcium 9.0. Phosphorus 4.5, magnesium 1.5. Bilirubin 0.32, AST 14, ALT 12. Troponin 107. ProBNP 17,527. Albumin is 3.7, amylase 57, lactate 0.8. Acetone is negative. IMAGING: Head CT: No evidence of acute intracranial disease. Chest x-ray: Cardiomegaly, interstitial pulmonary edema. EKG: Sinus bradycardia, rate 51, QTc 446. ASSESSMENT AND PLAN: 1. Metabolic encephalopathy with some confusion secondary to missing her hemodialysis on Monday. Should improve once her dialysis is given today. 2. End-stage renal disease, now with fluid volume overload secondary to missing Monday's dialysis. Pulmonary edema on chest x-ray should improve with her hemodialysis today. 3. Hyperkalemia secondary to missing dialysis. She has received multiple medications in the emergency room to bring it down, and she will receive dialysis today. Will keep her on telemetry on PVC. 4. Hypertension. Systolics are over 200s. We have added as needed hydralazine. Currently waiting for home medication regimen to be reconciled so we can resume those, and dialysis should also improve the blood pressure as well. 5. Chronic diarrhea with acute bout over the past few days. She took Imodium. She has only had 2 bowel movements today, so will monitor that. Apparently, she has had an extensive workup, according to the daughter, and the daughter feels like she is drinking grapefruit juice and that maybe she is noticing some of these symptoms of diarrhea happening around the times she is consuming grapefruit juice. 6. Hyperlipidemia. Once home medications are verified, will resume that. 7. Hypothyroidism. Will continue Synthroid once it is verified. 8. Gout. 9. Anemia that is chronic. 10. Pancreatic insufficiency. 11. Deep venous thrombosis prophylaxis. Sequential compression devices. Dictated by WIL Johnson for Joe Kaba MD cc: WIL Johnson MD
[2019-12-18] MEDS: APRESOLINE IV PRN (16:50)
[2019-12-18 17:38] LABS: ALBUMIN 3.8 g/dL (3.5-5.0); CALCIUM 8.8 mg/dL (8.8-10.2); CREATININE 3.4 mg/dL (0.5-0.9); POTASSIUM 3.8 mmol/L (3.5-5.1)
--- NOTE | 2019-12-18 18:06 | PROGRESS NOTE ---
DATE: 12/18/2019 The patient came in with nausea, vomiting, and diarrhea. She had I think missed at least 1 day of dialysis because she was not feeling good. Today, she came into the ER. Her potassium was 7.7 and she was admitted for treatment. Her troponin is a bit elevated, but she is a dialysis patient. EKG did not show acute ST changes. In any case, she was admitted for treatment. She is getting dialyzed to correct her hyperkalemia. She had gotten treatment before. Diarrhea sounds like it was probably gastroenteritis type syndrome. We have sent off labs. This is a face-to- face encounter note with Meryl Wyatt. cc: Joe Kaba MD
[2019-12-18] MEDS: TYLENOL PO PRN (19:27)
--- NOTE | 2019-12-18 19:43 | NEPHROLOGY CONSULTATION ---
DATE: 12/18/2019 REASON FOR CONSULTATION: Hyperkalemia and chronic kidney disease. HISTORY OF PRESENT ILLNESS: Ms. Blackburn is a 74-year-old white female who missed her dialysis on yesterday. She has been dealing with diarrhea and it has been worse over the weekend despite Imodium. Because of this, she did not feel she was following up to go to dialysis so she skipped it. She attempted to go to dialysis today, but was simply too weak to get out of bed. So she was brought to the emergency room for acute care evaluation. Initial laboratory data disclosed a potassium of 7.7. EKG demonstrated right bundle branch block pattern and some peaking of T-waves. P-wave was inverted, DE interval was normal. Compared to her previous EKG from April of last year, her QRS duration was roughly similar. We were contacted to assist with her management in providing acute dialysis. She has not had melena or hematochezia. No nausea or vomiting. PAST MEDICAL HISTORY: As above. She also has a history of hypothyroidism, hyperlipidemia, hypertension, gout. She has had multiple bouts of chronic diarrhea that has been present for actually several years intermittently. This is no real change in her pattern. HOME MEDICATIONS: Include atorvastatin, metoprolol, ergocalciferol, folate, insulin, amlodipine, loratadine, Creon, allopurinol, pantoprazole, clonidine, magnesium, multivitamin, calcium, hydralazine, gabapentin, diphenoxylate, levothyroxine, ondansetron, trazodone, isosorbide, losartan. ALLERGIES: Penicillin, shellfish, niacin. SOCIAL HISTORY: She does not use alcohol or tobacco and lives with her daughter. FAMILY HISTORY: Noncontributory. REVIEW OF SYSTEMS: Noncontributory. PHYSICAL EXAMINATION: Vital Signs: Blood pressure 227/74, heart rate 52, respirations 14, afebrile. General: No acute distress. Skin: Warm and dry. Pupils are equal and round. Conjunctivae are pink and moist. Neck: Neck veins are not distended. Trachea is midline. Heart: PMI nondisplaced. Regular rate and rhythm without murmurs, rubs, or gallops. Lungs: Have equal excursion, equal breath sounds. No crackles or wheezes. Abdomen: Soft, nontender. Bowel sounds present. No organomegaly, masses or bruits. Extremities: Trace edema. No clubbing or cyanosis. Neurologic: Nonfocal. IMPRESSION: Hyperkalemia. Symptomatic with profound weakness. EKG changes appear to be chronic however. She is currently receiving dialysis using a 2 potassium bath and her routine outpatient dry weight. We will remeasure her potassium in the morning and repeat dialysis if required. Other electrolytes are acceptable. BUN 77. Hemoglobin 10.4. We will follow her hemoglobin to verify that this is not related to gastrointestinal bleeding. cc: Pankaj Galindo MD
[2019-12-19] MEDS: TYLENOL PO PRN ×2 (05:36→15:18)
[2019-12-19 06:10] LABS: BASO# 0.03 X1000 (0.0-0.2); BASO% 0.6 % (0.0-0.8); EOS# 0.13 X1000 (0.0-0.7); EOS% 2.8 % (0.0-10.0); HEMATOCRIT 30.5 % (37.0-47.0); HEMOGLOBIN 9.9 g/dL (12.0-16.0); LYMPH# 1.26 X1000 (1.2-3.4); LYMPH% 27.3 % (20.5-51.1); MCH 31.6 PG (27-31); MCHC 32.5 g/dL (33-37); MCV 97.4 FL (81-99); MONO# 0.34 X1000 (0.11-0.59); MONO% 7.4 % (1.7-9.3); MPV 8.9 FL (7.4-10.4); NEUT# 2.86 X1000 (1.4-6.5); NEUT% 61.9 % (42.2-75.2); PLT 150 X1000 (130-400); RBC 3.13 XMIL (4.2-5.4); RDW 13.9 % (11.5-14.5); WBC 4.62 X1000 (4.8-10.8)
[2019-12-19 07:00] LABS: ALBUMIN 3.7 g/dL (3.5-5.0); CALCIUM 9.6 mg/dL (8.8-10.2); CREATININE 6.1 mg/dL (0.5-0.9); PHOSPHORUS 4.6 mg/dL (2.7-4.5)
[2019-12-19 07:03] LABS: ALBUMIN 3.8 g/dL (3.5-5.0); CALCIUM 9.2 mg/dL (8.8-10.2); CREATININE 6.1 mg/dL (0.5-0.9); MAGNESIUM 1.5 mg/dL (1.5-2.7); TOTAL BILIRUBIN 0.34 mg/dL (0.20-1.00); TOTAL PROTEIN 5.7 g/dL (6.3-8.3)
[2019-12-19 07:12] LABS: POTASSIUM 5.2 mmol/L (3.5-5.1)
[2019-12-19 07:43] LABS: POTASSIUM 5.2 mmol/L (3.5-5.1)
[2019-12-19] MEDS: APRESOLINE IV PRN (08:40)
[2019-12-19] MEDS ORDERED: LOKELMA POWDER PACKET PO ONE (10:45)
[2019-12-19] MEDS ORDERED: VANCOMYCIN 1 GM/NS 1 GM/250 ML IVPB IV ONE (11:13)
[2019-12-19] MEDS ORDERED: LOMOTIL PO PRN (11:39)
[2019-12-19] MEDS: LOKELMA POWDER PACKET PO ONE ×2 (12:25→12:42)
[2019-12-19] MEDS: COZAAR PO SCH (12:41)
[2019-12-19] MEDS: TOPROL XL PO SCH (12:41)
[2019-12-19] MEDS: NORVASC PO SCH (12:41)
--- NOTE | 2019-12-19 13:47 | Diag Imaging Result Doc PS360 ---
EXAM: MRI BRAIN W/O CONTRAST INDICATION: cva COMPARISON: 06/03/2016 FINDINGS: There is no evidence of acute infarct. There is mild patchy T2/FLAIR hyperintensity in the periventricular and subcortical white matter suggesting minimal microangiopathy. However, it is worse than the previous study in 2016. There is a tiny chronic lacunar infarct in the villagomez radiata of the right parietal lobe on image 20 of series 6 that is stable. There is no discrete intracranial mass, mass effect, or intracranial hemorrhage. The surrounding soft tissues and bony structures are essentially unremarkable. IMPRESSION: Stable chronic lacunar infarct in the villagomez radiata on the right and very minimal white matter microangiopathy that is slightly worse than the previous study. No evidence of acute intracranial pathology. Electronically signed by Oskar Dickerson 12/19/2019 1:44 PM
[2019-12-19] MEDS: APRESOLINE PO SCH ×2 (15:18→20:38)
--- NOTE | 2019-12-19 16:26 | PROVIDER PROGRESS NOTE ---
Progress Note Subjective: She voices less weakness and in general feels better. She has not had any diarrhea. Objective: temperature 98.4, pulse 75, respirations 18, blood pressure 197/67, 02 sat 95% on room air. General: Elderly White female lying in bed in no acute distress. HEENT: normocephalic, atraumatic, pupils equal and reactive, mucous membranes m oist. Skin: warm and dry. Neck: supple, no JVD Cardiovascular: S1S2, regular rate and rhythm. Soft systolic murmur. No gallop. Respiratory: lungs clear with equal air entry anteriorly Abdomen: soft, nontender, nondistended. Bowel sounds present. : not inspected Extremities: no clubbing, cyanosis, or edema Neurological: alert and oriented to person place and time. Labs: hemoglobin 9.9, somatic at 30.5, sodium 138, potassium 5.2, chloride 96, carbon dioxide 26, BUN 33, creatinine 6.1, intake 515, output 3269. Impression: Chronic kidney disease stage 5D. She had hemodialysis treatment at the hospital yesterday with a 3 L ultrafiltration. We will maintain her routine schedule. Hyperkalemia. Her potassium remains elevated. We will give lokelma 10mg today. Blood pressure. Elevated. We will restart home blood pressure meds. Fluid volume. Euvolemic. Acid-base balance. Stable. Nutrition. Adequate. Medication review. No changes. Restart home medications.
[2019-12-19] MEDS ORDERED: COZAAR PO SCH (16:45)
[2019-12-19] MEDS ORDERED: APRESOLINE PO SCH (17:00)
--- NOTE | 2019-12-19 18:12 | PROGRESS NOTE ---
DATE: 12/19/2019 SUBJECTIVE: The patient has no major complaints. OBJECTIVE: Blood pressure is 185/67, heart rate 69, respiratory rate 17, temperature 97.6 degrees, 96% on room air.Cardiovascular: Regular rate and rhythm. Pulmonary: Bilateral breath sounds. Clear to auscultation. Gastrointestinal: Soft, nontender. Neurologic: Nonfocal. Her daughter this morning felt that she had slurring of her speech and there was concern over a stroke, but she had a nonfocal exam. LABORATORY DATA: White count is 4, hemoglobin and hematocrit 9 and 30, platelets 150,000. Potassium 5.2, creatinine 6.1, phosphorus is 4.6. PROBLEM LIST: 1. Diarrhea. Now apparently, she has had issues with this before, and I did not realize yesterday, but she is on Creon which is typically used to treat chronic pancreatitis, and she does have pancreatic insufficiency. I am not sure she is really compliant with that. I had a long discussion with her and her daughter, and they were asking questions about taking this medication daily when she needs to take it with every meal, so I do not think she has been compliant with her Creon. In any case, I will get a GI opinion, but I think she has exocrine insufficiency and that is probably what is going. It looks like Dr. Delatorre did an EGD in 2018, and she had some gastritis then. Anyway, we will resume her Creon, start Lomotil, and follow. 2. End-stage renal disease. She is on dialysis per Dr. Galindo. She had missed 2 days, but Monday, she missed because of her diarrhea. She could not stay for 4 hours for dialysis because she had intractable diarrhea. I am not really sure exactly how to not excuse that issue. That being said, I think we do need to aggressively treat her diarrhea and prevent further lapses in her dialysis. Some of that of course reinforcing that she actually takes her medication, which I do not think she has been. 3. Hypertension. Uncontrolled, but we did not have all her medications until this morning. 4. Diabetes. She is on Lantus. We will continue that. Her blood sugars have been low end of normal, so I think I may hold her Lantus until we get blood sugars a little bit better. DISPOSITION: Pending clinical status. The stroke, she had a MRI which was negative. cc: Joe Kaba MD
[2019-12-19] MEDS: CREON PO SCH (18:34)
[2019-12-19] MEDS: IMDUR PO SCH (18:34)
[2019-12-19] MEDS: LIPITOR PO SCH (20:39)
[2019-12-19] MEDS ORDERED: LANTUS INSULIN SUBQ SCH (21:00)
[2019-12-19] MEDS: DESYREL PO PRN (22:59)
[2019-12-20] MEDS: PHOSLO PO SCH ×4 (06:11→15:08)
[2019-12-20] MEDS: SYNTHROID PO SCH (06:11)
[2019-12-20] MEDS: PROTONIX PO SCH (06:11)
[2019-12-20 06:14] LABS: BASO# 0.03 X1000 (0.0-0.2); BASO% 0.6 % (0.0-0.8); EOS# 0.26 X1000 (0.0-0.7); EOS% 5.6 % (0.0-10.0); HEMATOCRIT 30.2 % (37.0-47.0); HEMOGLOBIN 9.7 g/dL (12.0-16.0); IMM GRAN# 0.02 X1000 (0.0-0.04); IMM GRAN% 0.4 % (0.0-0.5); LYMPH# 1.38 X1000 (1.2-3.4); LYMPH% 29.7 % (20.5-51.1); MCH 31.1 PG (27-31); MCHC 32.1 g/dL (33-37); MCV 96.8 FL (81-99); MONO% 8.6 % (1.7-9.3); MPV 8.8 FL (7.4-10.4); NEUT# 2.56 X1000 (1.4-6.5); NEUT% 55.1 % (42.2-75.2); PLT 159 X1000 (130-400); RBC 3.12 XMIL (4.2-5.4); WBC 4.65 X1000 (4.8-10.8)
[2019-12-20 06:33] LABS: ALB/GLOB RATIO 1.6; ALBUMIN 3.6 g/dL (3.5-5.0); CALCIUM 8.6 mg/dL (8.8-10.2); CREATININE 7.5 mg/dL (0.5-0.9); MAGNESIUM 1.4 mg/dL (1.5-2.7); POTASSIUM 5.9 mmol/L (3.5-5.1); TOTAL BILIRUBIN 0.32 mg/dL (0.20-1.00); TOTAL PROTEIN 5.8 g/dL (6.3-8.3)
[2019-12-20] MEDS: IMDUR PO SCH ×2 (07:37→11:39)
[2019-12-20] MEDS: APRESOLINE PO SCH ×4 (07:38→21:02)
[2019-12-20] MEDS: NEPHRO-VITE PO SCH ×2 (07:38→11:39)
[2019-12-20] MEDS: CREON PO SCH ×4 (07:38→16:06)
[2019-12-20] MEDS: CLARITIN PO SCH ×2 (07:38→11:38)
[2019-12-20] MEDS: NORVASC PO SCH ×2 (07:38→11:39)
[2019-12-20] MEDS: TOPROL XL PO SCH ×2 (07:38→11:39)
[2019-12-20] MEDS: COZAAR PO SCH ×2 (07:38→11:38)
[2019-12-20] MEDS ORDERED: NS 2,000 ML MISC PRN (08:13)
[2019-12-20] MEDS ORDERED: HEPARIN IV PRN (08:13)
[2019-12-20] MEDS ORDERED: FOLIC ACID PO SCH (09:00)
[2019-12-20] MEDS ORDERED: TOPROL XL PO SCH (09:00)
[2019-12-20] MEDS ORDERED: LOKELMA POWDER PACKET PO SCH (11:00)
[2019-12-20] MEDS: LOKELMA POWDER PACKET PO SCH ×2 (12:29→16:01)
[2019-12-20] MEDS: TYLENOL PO PRN (15:12)
--- NOTE | 2019-12-20 15:14 | PROGRESS NOTE ---
DATE: 12/20/2019 SUBJECTIVE: Patient has no major complaints. OBJECTIVE: Vital Signs: Blood pressure is 202/57, heart rate 64, respiratory rate 16, temperature 97.4 degrees, 92% on 3 L. Cardiovascular: Regular rate and rhythm. Pulmonary: Bilateral breath sounds clear to auscultation. Gastrointestinal: Soft, nontender, nondistended. Bowel sounds are positive. LABORATORY DATA: White count 4, hemoglobin and hematocrit 9 and 30, platelets 159,000. Potassium 5.9, BUN and creatinine 49 and 7.5, magnesium of 1.4. ASSESSMENT: 1. Diarrhea. The patient is stable. We will continue to follow closely. Continue to monitor closely. 2. She had exocrine insufficiency. She is on Creon. We will continue treatment and follow. Will consult Dr. Scott. Her diarrhea though does seem to be better. 3. End-stage renal disease. She is on dialysis Monday, Monday, Monday. I think she was dialyzed today. 4. Hypothyroidism is profoundly not controlled. Her TSH is 9983. Free T4 0.79. I do not think she is absorbing her Synthroid. I do not think she is taking her Creon appropriately either because she is not taking it with meals. She just takes it three times a day, so we will get a Gastroenterology opinion and follow. 5. Hypertension. We will continue her medications. Adjust accordingly. 6. Type 2 diabetes. Blood sugars are stable. She is off of Lantus because her sugars have been pretty normal and I did want her to bottom out. We will check an A1c as well. cc: Joe Kaba MD
--- NOTE | 2019-12-20 17:07 | NEPHROLOGY PROGRESS NOTE ---
DATE: 12/20/2019 SUBJECTIVE: She is having more diarrhea and this has delayed her discharge. She is on dialysis currently. OBJECTIVE: Vital Signs: Blood pressure of 190/74, heart rate 68, respirations 20, afebrile. General: In no acute distress. Skin: Warm and dry. Neck: Neck veins are not distended. Heart: Regular. No gallops or murmurs. Lungs: Equal. No crackles or wheezes. Abdomen: Soft, nontender. Bowel sounds are present. Extremities: No edema, clubbing or cyanosis. IMPRESSION: 1. Chronic kidney disease 5B. Modest hyperkalemia. Acid base in target. Continue routine outpatient dialysis prescription today. Hemoglobin is below target but no changes are required. No reason to suspect that she has GI bleeding. 2. Positive blood culture. 1 out of 2 with gram-positive cocci, but have not been further delineated. She has received vancomycin. She has a fistula that appears normal. This may well just be a contaminant. cc: Pankaj Galindo MD
[2019-12-20] MEDS: LIPITOR PO SCH (21:02)
[2019-12-20] MEDS: DESYREL PO PRN (21:02)
[2019-12-21] MEDS: APRESOLINE IV PRN (04:31)
[2019-12-21] MEDS: PROTONIX PO SCH (06:05)
[2019-12-21] MEDS: SYNTHROID PO SCH (06:05)
[2019-12-21] MEDS: PHOSLO PO SCH ×2 (06:06→12:10)
[2019-12-21 06:49] LABS: BASO# 0.03 X1000 (0.0-0.2); BASO% 0.6 % (0.0-0.8); EOS# 0.24 X1000 (0.0-0.7); HEMATOCRIT 32.1 % (37.0-47.0); HEMOGLOBIN 10.5 g/dL (12.0-16.0); LYMPH# 1.47 X1000 (1.2-3.4); LYMPH% 30.7 % (20.5-51.1); MCH 31.6 PG (27-31); MCHC 32.7 g/dL (33-37); MCV 96.7 FL (81-99); MONO# 0.38 X1000 (0.11-0.59); MONO% 7.9 % (1.7-9.3); MPV 8.7 FL (7.4-10.4); NEUT# 2.67 X1000 (1.4-6.5); NEUT% 55.8 % (42.2-75.2); PLT 160 X1000 (130-400); RBC 3.32 XMIL (4.2-5.4); RDW 13.8 % (11.5-14.5); WBC 4.79 X1000 (4.8-10.8)
[2019-12-21 07:08] LABS: ALB/GLOB RATIO 1.9; ALBUMIN 3.8 g/dL (3.5-5.0); CALCIUM 9.3 mg/dL (8.8-10.2); MAGNESIUM 1.4 mg/dL (1.5-2.7); POTASSIUM 5.2 mmol/L (3.5-5.1); TOTAL BILIRUBIN 0.37 mg/dL (0.20-1.00); TOTAL PROTEIN 5.8 g/dL (6.3-8.3)
[2019-12-21 07:19] LABS: HEMOGLOBIN A1C 4.9 % (4.8-6.0)
[2019-12-21 07:24] LABS: CREATININE 5.6 mg/dL (0.5-0.9)
[2019-12-21] MEDS: NORVASC PO SCH (09:12)
[2019-12-21] MEDS: CREON PO SCH (09:12)
[2019-12-21] MEDS: TOPROL XL PO SCH (09:12)
[2019-12-21] MEDS: APRESOLINE PO SCH ×3 (09:12→14:22)
[2019-12-21] MEDS: IMDUR PO SCH (09:12)
[2019-12-21] MEDS: CLARITIN PO SCH (09:12)
[2019-12-21] MEDS: COZAAR PO SCH (09:12)
[2019-12-21] MEDS: NEPHRO-VITE PO SCH (09:12)
[2019-12-21] MEDS: LOKELMA POWDER PACKET PO SCH ×2 (09:14→12:09)
--- NOTE | 2019-12-21 09:46 | GASTROENTEROLOGY CONSULTATION ---
DATE: 12/21/2019 REASON FOR CONSULTATION: Rule out pancreatic insufficiency, diarrhea. HISTORY OF PRESENT ILLNESS: Ms Rachael Blackburn is a 74-year-old woman with a past medical history of hypertension, hyperlipidemia, chronic anemia, insulin-dependent diabetes with neuropathy, end- stage renal disease on dialysis Monday, Monday, and Monday, and gout, hypothyroidism who presents with acute diarrhea that started this past Monday with multiple episodes of watery diarrhea every 30 minutes. The patient reports that the day prior to her arrival or prior to Monday, she was having normal formed stools and then on Monday she developed lower abdominal cramping and diarrhea every 30 minutes with associated diffuse weakness and fatigue. She denies any rectal bleeding, nausea, vomiting, melena, weight loss. She says that her diarrhea is intermittent, occurring on an off. She cannot describe exactly how frequent her diarrhea occurs and the time interval between episodes. She has not notice any relation to any particular foods, although she says her symptoms are aggravated with eating. No sick contacts, recent antibiotics, changes in diet, fevers, chills, sweats. She denies constipation. She does take Creon at home for presumed pancreatic insufficiency and has been on Lomotil and Imodium in the past and she does report compliance with her medications. On presentation, she came in after missing dialysis with a potassium of 7.7, bradycardia, hypertensive and confused. She underwent emergent dialysis and has since had improving diarrhea in the hospital. Initially she was not on her Creon and Lomotil which was restarted on the . She is currently on 2000 units of Creon t.i.d. Overnight no acute events. She had some difficulty sleeping. However, she only had 1 small bowel movement yesterday that was watery, none today. REVIEW OF SYSTEMS: As per HPI, otherwise 12 point review of systems is negative. PAST MEDICAL HISTORY: As per HPI. History of Clostridium difficile. PAST SURGICAL HISTORY: x3, hysterectomy, left cataract surgery, AV fistula. SOCIAL HISTORY: Prior smoker. No alcohol or drug use. She lives with her daughter. FAMILY HISTORY: No family history of GI malignancies, pancreatitis, IBD. ALLERGIES: To penicillin, shellfish, niacin. PHYSICAL EXAMINATION: Vital Signs: Temperature is 98.6 degrees, heart rate of 60, respiratory rate 18, blood pressure 140/37, O2 saturation 93% on room air. General: Patient is awake, alert, oriented, no acute distress. HEENT: Sclerae anicteric. Moist mucous membranes. Extraocular motor intact. Neck: Supple. No JVD or lymphadenopathy. Cardiac: Regular rate and rhythm. No murmurs, rubs, or gallops. Lungs: Clear to auscultation bilaterally. No wheeze. Abdomen: Soft, nontender, nondistended. Normoactive bowel sounds. No rebound or guarding. Extremities: No clubbing, cyanosis, or edema. Neurologic: Nonfocal. Moving extremities symmetrically. LABS: White count of 4.7, hemoglobin is 10.5, platelets of 160,000. Sodium 138, potassium of 5.2, chloride 97, bicarb 28, BUN of 38, creatinine of 5.6. LFTs are within normal limits. TSH of 83. Stool studies: C difficile toxin is negative. O and P is negative. Fecal occult blood negative. Stool culture negative. Blood cultures 10/24 from 12/18 show Gram positive cocci. IMAGING: Chest x-ray shows cardiomegaly and interstitial pulmonary edema. Head CT, no evidence of acute disease. Brain MRI stable, chronic lacunar infarct in the vilalgomez radiata. On the right is a very minimal white matter microangiopathy that is slightly worse than the previous study. No evidence of acute intracranial pathology. The patient has had multiple endoscopies and colonoscopies in the past, most recently in March 2018, at which time she was found to have a Schatzki's ring that was dilated, gastritis, gastric polyp, mild duodenitis, colitis thought to be likely ischemic, diverticulosis, hemorrhoids. Biopsies showed non H. pylori gastritis. No evidence of celiac disease. Colon biopsies show mild patchy chronic inflammation and lamina propria edema. ASSESSMENT AND PLAN: Ms. Rachael Blackburn is a 74-year-old woman who presents with a history of end- stage renal disease on dialysis, insulin-dependent diabetes with neuropathy, hypertension, hyperlipidemia, hypothyroidism, who presents with acute diarrhea and hyperkalemia and pulmonary edema from missed dialysis. GI was consulted for evaluation for possible pancreatic insufficiency. The patient does not have a history of pancreatitis or acute pancreatitis in the past. There is no imaging that shows that she has chronic pancreatitis. She has been empirically treated for pancreatic insufficiency. There was some question in the past whether she had protein losing enteropathy; however, her albumin is normal. Total protein is normal as well. Therefore it is unlikely. Possibly with her diabetes that she could have bacterial overgrowth. Again, she has not had any weight loss. Denies any having any fat in stool or symptoms suggestive of pancreatic insufficiency. Her acute presentation suggestive of gastroenteritis, which is getting better. She is on pancreatic enzymes, which we will continue empirically and treat with Imodium or Lomotil as needed. I have ordered a repeat C. difficile; however, she has not had any bowel movements as well as the pancreatic elastase which would tell us whether her pancreas is working or not. As she is no longer having diarrhea and she is tolerating her renal diet, she is okay from our standpoint to be discharged with follow up with Dr. Scott as an outpatient. Again, it is unclear whether she has pancreatic insufficiency or not as she has not had any testing that was conclusive for this. She has had amyloid biopsy fat pad in the past that was negative. She has had some 5-HIAA which was also unremarkable and she had a 24 hour stool collection in the past. I see no results from in the chart. Her symptoms seem to improve with fasting and are not nocturnal, which suggests more of a malabsorptive process rather than a secretory process. # Acute diarrhea # ESRD # IDDM2 # Pulmonary edema # Hyperkalemia # Chronic anemia # Hypothyroidism Thank you for this consult. Please call with any questions or concerns. CHEVY
[2019-12-21 12:02] VITALS: BP 199/63
[2019-12-21] MEDS ORDERED: SYNTHROID PO ONE (14:15)
--- NOTE | 2019-12-21 16:27 | DISCHARGE SUMMARY ---
ADMISSION DATE: 12/18/2019 DISCHARGE DATE: 12/21/2019 DISCHARGE DIAGNOSES: 1. Chronic diarrhea, really uncertain etiology, possible malabsorption, possible bacterial overgrowth. She does not have any evidence of pancreatic insufficiency. Somehow she got that diagnosis the last time she was here and she was put on pancreatic enzymes, but GI is still recommending to continue those. We are not entirely sure what the diarrhea is coming from and in the process of working that up completely. 2. End-stage renal. 3. Profound hypothyroidism. Question if she is compliant with her medications. Her TSH was in the 80s. 4. Extreme hypertension. 5. Altered mental status. CONSULTATIONS: 1. Dr. Galindo, Nephrology. 2. Dr. Shay, GI. She has seen Dr. Scott in the past. She came in with protracted diarrhea and weakness. She has chronic diarrhea and she takes Imodium, Lomotil intermittently, but she had such profound diarrhea that she missed her dialysis on Monday and then came in Monday. Her potassium was 7.7. She was urgently dialyzed. She is a little bit out of it. Also very high blood pressure. She was stabilized. Her potassium came down. Daughter was concerned about a possible stroke. Her head CT was negative and her brain MRI this admission was also negative. Her mental status improved. She never had a focal neurological exam to suggest stroke, but she was maintained on Lokelma, but the patient refuses Lokelma because she cannot take any powders, they make her gag, or any solutions dissolved in liquids because they make her gag. She can't take any liquids like liquids with texture or syrups, so we were not able to give her any anti potassium for potassium lowering agents. She is intolerant of Veltassa, Lokelma, and Kayexalate, so this will have to be managed with dialysis. I did consult GI because of her protracted diarrhea. If her diarrhea is preventing her from getting dialysis, it is probably going to be an issue but we put her on Creon and intermittent Lomotil and she is down about 2 bowel movements a day and she seems fine, back to normal, so she seems to be doing okay. Dr. Shay, I appreciate his input. It is not really clear she has pancreatic insufficiency. She has no evidence of chronic pancreatitis or acute pancreatitis for that matter. CT did not show any calcifications. She has C. difficile in the past, but the testing has been negative. He has ordered a pancreatic elastase which is very sensitive for pancreatic insufficiency but felt that she could be discharged. She has had an amyloid fat biopsy which was negative. She has had I think serotonin metabolites and those were negative, so right now it is not entirely sure she has malabsorption versus secretory syndrome. I am a little concerned with her hypothyroidism that she is not absorbing her Synthroid, but we have adjusted the dose. Her initial TSH was 99. Her repeat was 83 with a free T4 0.79, so I have increased her Synthroid to 125. Her troponin was mildly elevated, but she is a dialysis patient. She came in volume overloaded so no chest pain or anything like that. Her mag was borderline and she is on magnesium as an outpatient. That may not be helping her diarrhea, but magnesium did need to be supplemented. DISCHARGE MEDICATIONS: Allopurinol 100 b.i.d., hydralazine 25 t.i.d., calcium acetate 667 two caps before breakfast, Claritin 10 daily, Desyrel 100 at bedtime, gabapentin 300 t.i.d., 75/25 p.r.n., Imdur was 30, Lantus 25, although she really has not been getting that here because her sugars have been normal and her A1c is 4.9. I am a little concerned about continuing the Lantus at 25. She has not been getting it here. We will keep an eye on that. Lipitor 40, Lomotil p.r.n., magnesium 250 daily, Protonix 40 daily, Toprol-XL 50 daily, Zofran p.r.n., Cozaar 50 daily, folic acid 1 daily, Norvasc 10 daily, Synthroid 125 daily, Vitamin D 91374 units weekly. I think we may need to adjust her blood pressure medicines because I do not think that is very well- controlled. Currently she is on Norvasc 10, hydralazine 25 t.i.d., Imdur 30, losartan 50, which we may have to watch. I am going to bump up her hydralazine to 50 t.i.d. She will need to follow up with Dr. Galindo next week, Dr. Scott in 1 to 2 weeks. I think we will continue the Creon because Dr. Shay said it was working and reinforced that she needs to take it with meals. She has been kind of taking it 3 times a day, but it needs to be taken with meals or at least before meals, somehow meal related. DISPOSITION: Pending clinical status. 32 minute discharge. Someone will need to follow up with her pancreatic elastase. cc: MD Diallo Schwarz MD Reginald D. Gladish, MD Marlin D. Gill, MD MTDD
[2019-12-22] MEDS ORDERED: VITAMIN D PO SCH (09:00)
== END 2019-12-21 15:36 | disposition home or self-care (01) | DRG 640 ==
LOC: SUPCPDRO → ED 08:59 → 2N 12:51
PROVIDERS: ATTEND Internal Medicine